=== PATIENT | female | born 1940 | race Caucasian/White ===

== ENCOUNTER 2018-05-25 07:39 | Emergency (ER) | payer MEDICARE ==
--- NOTE | 2018-05-25 08:19 | RADIOLOGY REPORT (SQ) ---
EXAM DESCRIPTION: HIP LEFT AP/LATERAL COMPLETED DATE/TIME: 05/25/2018 8:02 am REASON FOR STUDY: pain COMPARISON: None. NUMBER OF VIEWS: Two views. TECHNIQUE: AP pelvis and additional frog-leg view of the left hip. LIMITATIONS: None. FINDINGS: MINERALIZATION: Normal. LEFT HIP: No fracture or dislocation. No worrisome bone lesions. There is high-grade joint space na rrowing with [id number] appearance. Mild bony spurring. RIGHT HIP: No fracture or dislocation. No worrisome bone lesions. There is high-grade joint space n arrowing with [id number] appearance. Mild bony spurring. PUBIS AND ISCHIUM: No fracture. PELVIS: No fracture. SACRUM: No fracture or dislocation. No worrisome bone lesions. LOWER LUMBAR SPINE: Disc space narrowing and facet arthropathy from L3-4 through L5-S1 SOFT TISSUES: No findings. OTHER: No other significant finding. IMPRESSION: No acute fracture or malalignment by plain film. COMMENT: Consider follow-up CT if the patient is unable to bear weight TECHNICAL DOCUMENTATION: JOB ID: [id number]- All Rights Reserved Reading location - IP/workstation name: [email or web address]
[2018-05-25] MEDS ORDERED: KETOROLAC TROMETHAMINE 60 MG/2 ML SDV IM ONE (09:00)
[2018-05-25] MEDS ORDERED: TRAMADOL HCL 50 MG TABLET PO ONE (09:00)
--- NOTE | 2018-05-25 09:03 | ER Document Report ---
ED General - General Chief Complaint: Hip Pain Stated Complaint: HIP PAIN Time Seen by Provider: 05/25/18 08:15 Primary Care Provider: INOCENTE BONILLA PA-C [Primary Care Provider] - Follow up as needed - HPI Patient complains to provider of: Left hip pain Notes: Patient coming in for complaint of left hip pain. Patient states she has a history of chronic pain and sees a local orthopedist Dr. Oropeza states that she is waiting to have a hip replacement. States woke up this morning with increased pain. Patient states he does not take anything for her pain denies any pain going down the back of her leg. Patient points to the top of the posterior hip just above the iliac crest in the left paraspinal region as far as the site of her pain. Patient denies any trauma. Patient denies fever chills nausea vomiting diarrhea - Related Data Allergies/Adverse Reactions: No Known Allergies Allergy (Verified 05/25/18 07:52) Past Medical History - Social History Smoking Status: Former Smoker Chew tobacco use (# tins/day): No Frequency of alcohol use: Occasional Drug Abuse: None Family History: Reviewed & Not Pertinent Patient has suicidal ideation: No Patient has homicidal ideation: No - Past Medical History Cardiac Medical History: Reports: Hx Hypercholesterolemia, Hx Hypertension Pulmonary Medical History: Reports: Hx Asthma Renal/ Medical History: Denies: Hx Peritoneal Dialysis Past Surgical History: Reports: Hx Abdominal Surgery - lap band, Hx Orthopedic Surgery - aditi knee replacement, right shoulder, repair of femur Review of Systems - Review of Systems Constitutional: No symptoms reported EENT: No symptoms reported Cardiovascular: No symptoms reported Respiratory: No symptoms reported Gastrointestinal: No symptoms reported Genitourinary: No symptoms reported Female Genitourinary: No symptoms reported Musculoskeletal: Other - Left hip pain Skin: No symptoms reported Hematologic/Lymphatic: No symptoms reported Neurological/Psychological: No symptoms reported Physical Exam - Vital signs Vitals: Temp Pulse Resp BP 97.8 F 86 20 146/89 H 05/25/18 07:45 05/25/18 07:45 05/25/18 07:45 05/25/18 07:45 Interpretation: Normal - General General appearance: Appears well, Alert - HEENT Head: Normocephalic, Atraumatic Eyes: Normal Pupils: PERRL - Respiratory Respiratory status: No respiratory distress Chest status: Nontender Breath sounds: Normal Chest palpation: Normal - Cardiovascular Rhythm: Regular Heart sounds: Normal auscultation Murmur: No - Abdominal Inspection: Normal Distension: No distension Bowel sounds: Normal Tenderness: Nontender Organomegaly: No organomegaly - Back Back: Normal, Tender - Paraspinal tenderness adjacent to the iliac crest on left side nothing on the right no midline tenderness - Extremities General upper extremity: Normal inspection, Nontender, Normal color, Normal ROM, Normal temperature General lower extremity: Normal inspection, Nontender, Normal color, Normal ROM, Normal temperature, Normal weight bearing. No: Sanchez's sign - Neurological Neuro grossly intact: Yes Cognition: Normal Orientation: AAOx4 [place] Coma Scale Eye Opening: Spontaneous Daryl Coma Scale Verbal: Oriented [place] Coma Scale Motor: Obeys Commands Daryl Coma Scale Total: 15 Speech: Normal Motor strength normal: LUE, RUE, LLE, RLE Sensory: Normal - Psychological Associated symptoms: Normal affect, Normal mood - Skin Skin Temperature: Warm Skin Moisture: Dry Skin Color: Normal Course - Re-evaluation Re-evalutation: 05/25/18 13:46 The patient presents with low back pain/hip pain without signs of spinal cord compression, cauda equina syndrome, infection, aneurysm, or other serious etiology. The patient is neurologically intact. Given the extremely low risk of these diagnoses further testing and evaluation for these possibilities does not appear to be indicated at this time. The patient has been instructed to return if the symptoms worsen or change in any way. - Vital Signs Vital signs: Temp Pulse Resp BP Pulse Ox 97.9 F 100 16 131/72 H 100 05/25/18 09:45 05/25/18 09:45 05/25/18 09:45 05/25/18 09:45 05/25/18 09:45 Discharge - Discharge Clinical Impression: Left hip pain Condition: Good Disposition: HOME, SELF-CARE Instructions: Arthralgia ([facility]), Oral Narcotic Medication ([facility]) Additional Instructions: Your x-rays today do not show any signs of fracture highly recommend she follow- up with the orthopedic physician. I recommend also taking Tylenol use the Ultram for severe pain. Return to the ER if symptoms worsen. Prescriptions: Tramadol HCl [Ultram 50 mg Tablet] 50 mg PO ASDIR PRN #20 tablet PRN Reason: Referrals: INOCENTE BONILLA PA-C [Primary Care Provider] - Follow up as needed
[2018-05-25 09:50] VITALS: BP 131/72
== END 2018-05-25 09:54 | disposition home or self-care (01) ==
LOC: ER 07:39
DX: M25.552 Pain in left hip (principal); M54.5 Low back pain; I10 Essential (primary) hypertension; J45.909 Unspecified asthma, uncomplicated; Z87.891 Personal history of nicotine dependence; Z98.84 Bariatric surgery status
CPT/HCPCS: 99283; 96372; 73502; J1885; A9270

== ENCOUNTER 2018-06-21 04:42 | Inpatient (IN) | payer MEDICARE ==
[2018-06-21] MEDS ORDERED: DILTIAZEM HCL/D5W 125 MG/125 ML RTUINJ IV PRN (04:52)
[2018-06-21] MEDS ORDERED: DILTIAZEM HCL INJ 25 MG/5 ML VIAL IV ONE (04:52)
--- NOTE | 2018-06-21 04:58 | ER Document Report ---
ED General - General Chief Complaint: Shortness Of Breath Stated Complaint: TROUBLE BREATHING Time Seen by Provider: 06/21/18 04:51 Notes: Patient is a 78-year-old female with atrial fibrillation on Eliquis, diabetes mellitus, asthma that presents to the emergency department for chief complaint of shortness of breath. Patient states she started feeling more short of breath early this morning, had some mild chest discomfort. She does have history of asthma, she was just discharged from [facility] after a prolonged hospital stay, she was discharged yesterday. She states that she had a cardiac arrest, was in septic shock, secondary to urinary tract infection with a kidney stone. She states she had a lithotripsy over there. She initially did present to this emergency department prior to being transferred. She states she is having a hard time catching her breath, and feels that her heart is racing. She denies any pain at this time, denies any lightheadedness, nausea, vomiting, abdominal pain, dysuria or hematuria. Many of the patient's diagnoses occurred while she was in the hospital, she had not seen a physician for a long time prior to her presentation a few weeks ago, she states she was put on a blood thinner, and was started on insulin for diabetes which she states she was not aware of prior to her hospitalization. Per EMS the patient's pulse ox was 70% on room air upon arrival, she did receive a breathing treatment which seemed to make her shortness of breath worse so it was discontinued. Per EMS she did report some chest discomfort, but denies any pain at this time. Past Medical History: Atrial fibrillation, asthma, diabetes mellitus Past Surgical History: Total knee arthroplasties, total shoulder replacement, lithotripsy, ureteral stenting Social History: Denies tobacco, alcohol or drug use. Family History: Reviewed and noncontributory for presenting illness Allergies: Reviewed, see documented allergy list. REVIEW OF SYSTEMS: Other than noted above, the 12 point review of systems was reviewed with the patient and were negative, all pertinent findings are included in the HPI. PHYSICAL EXAMINATION: Vital signs reviewed, nursing noted reviewed. GENERAL: Elderly female, in moderate respiratory distress. HEAD: Atraumatic, normocephalic. EYES: Eyes appear normal, extraocular movements intact, sclera anicteric, conjunctiva are normal. ENT: nares patent, oropharynx clear without exudates. Moist mucous membranes. NECK: Normal range of motion, supple without lymphadenopathy LUNGS: Diminished lung sounds throughout, increased work of breathing, moderate to severe respiratory distress HEART: Heart rate tachycardic, irregular rhythm, no audible murmur. ABDOMEN: Soft, nontender, normoactive bowel sounds. No rebound, guarding, or rigidity. No masses appreciated. EXTREMITIES: Nontender, good range of motion, no pitting or edema. NEUROLOGICAL: No focal neurological deficits. Moves all extremities spontaneously Motor and sensory grossly intact on exam. PSYCH: Normal mood, normal affect. SKIN: Warm, Dry, normal turgor, no rashes or lesions noted on exposed skin - Related Data Allergies/Adverse Reactions: No Known Allergies Allergy (Verified 05/25/18 07:52) Past Medical History - Social History Smoking Status: Never Smoker Family History: Reviewed & Not Pertinent - Past Medical History Cardiac Medical History: Reports: Hx Hypercholesterolemia, Hx Hypertension Pulmonary Medical History: Reports: Hx Asthma Renal/ Medical History: Denies: Hx Peritoneal Dialysis Past Surgical History: Reports: Hx Abdominal Surgery - lap band, Hx Orthopedic Surgery - aditi knee replacement, right shoulder, repair of femur Physical Exam - Vital signs Vitals: Resp Pulse Ox 26 H 97 06/21/18 04:47 06/21/18 04:47 Course - Re-evaluation Re-evalutation: Patient seen and examined vital signs reviewed. Laboratory data and imaging were ordered as appropriate for the patient's pre senting symptoms and complaint, with consideration of any critical or life threatening conditions that may be associated with their obtained history and exam as noted above. Patient was treated with BiPAP therapy, placed on Cardizem bolus of 50 mg, and infusion at 5 mg/h, her heart rate did come down to the low 100s, blood pressure remained stable, patient was improved on BiPAP. Avoiding further bronchodilators, such as DuoNeb, as it will only make the patient's heart rate worse, and she seemed to get worse from a respiratory standpoint, when she was given 1 of these treatments by EMS. Results were reviewed when available and demonstrated chest x-ray, that was negative for signs of pneumonia, significant pulmonary edema, she did have cardiomegaly. BNP was elevated, however do not have a baseline to compare, she did not appear excessively fluid overloaded on my exam her troponin was 0.019. Renal function demonstrate a creatinine of 1.9, from what the patient is telling me, this seems to be improved from her visit in [facility], when she had temporary dialysis. Patient is urinating, without difficulty. The patient was re-evaluated and was much improved on the BiPAP, heart rate coming down on the Cardizem. Evaluation was most consistent with acute respiratory failure with hypoxia, requiring noninvasive positive pressure ventilation, and atrial fibrillation with rapid ventricular response, requiring Cardizem infusion. *Note is created using voice recognition software and may contain spelling, syntax or grammatical errors. Laboratory 06/21/18 06/21/18 06/21/18 04:48 04:48 04:48 WBC 9.9 RBC 3.14 L Hgb 10.1 L Hct 30.6 L MCV 98 H MCH 32.2 MCHC 33.1 RDW 17.4 H Plt Count 300 Total Counted 100 Seg Neutrophils % Not Reportable Seg Neuts % (Manual) 76 Band Neutrophils % 2 L Lymphocytes % Not Reportable Lymphocytes % (Manual) 6 L Monocytes % Not Reportable Monocytes % (Manual) 16 H Eosinophils % Not Reportable Eosinophils % (Manual) 0 Basophils % Not Reportable Basophils % (Manual) 0 Absolute Neutrophils Not Reportable Abs Neuts (Manual) 7.7 Absolute Lymphocytes Not Reportable Abs Lymphs (Manual) 0.6 Absolute Monocytes Not Reportable Abs Monocytes (Manual) 1.6 H Absolute Eosinophils Not Reportable Absolute Eos (Manual) 0.0 Absolute Basophils Not Reportable Abs Basophils (Manual) 0.0 Toxic Granulation 1+ Platelet Comment ADEQUATE Polychromasia SLIGHT Anisocytosis 2+ PT 17.5 H INR 1.37 VBG pH VBG pCO2 VBG HCO3 VBG Base Excess Sodium 142.3 Potassium 5.0 Chloride 110 H Carbon Dioxide 23 Anion Gap 9 BUN 37 H Creatinine 1.96 H Est GFR ( Amer) 30 L Est GFR (Non-Af Amer) 25 L Glucose 198 H POC Glucose Calcium 9.4 Total Bilirubin 0.4 Direct Bilirubin 0.4 Neonat Total Bilirubin Not Reportable Neonat Direct Bilirubin Not Reportable Neonat Indirect Bili Not Reportable AST 39 H ALT 39 Alkaline Phosphatase 69 Troponin I NT-Pro-B Natriuret Pep Total Protein 6.6 Albumin 3.7 06/21/18 06/21/18 06/21/18 04:48 04:48 04:48 WBC RBC Hgb Hct MCV MCH MCHC RDW Plt Count Total Counted Seg Neutrophils % Seg Neuts % (Manual) Band Neutrophils % Lymphocytes % Lymphocytes % (Manual) Monocytes % Monocytes % (Manual) Eosinophils % Eosinophils % (Manual) Basophils % Basophils % (Manual) Absolute Neutrophils Abs Neuts (Manual) Absolute Lymphocytes Abs Lymphs (Manual) Absolute Monocytes Abs Monocytes (Manual) Absolute Eosinophils Absolute Eos (Manual) Absolute Basophils Abs Basophils (Manual) Toxic Granulation Platelet Comment Polychromasia Anisocytosis PT INR VBG pH 7.27 L VBG pCO2 53.7 VBG HCO3 24.3 VBG Base Excess -3.1 Sodium Potassium Chloride Carbon Dioxide Anion Gap BUN Creatinine Est GFR ( Amer) Est GFR (Non-Af Amer) Glucose POC Glucose Calcium Total Bilirubin Direct Bilirubin Neonat Total Bilirubin Neonat Direct Bilirubin Neonat Indirect Bili AST ALT Alkaline Phosphatase Troponin I 0.019 NT-Pro-B Natriuret Pep 28414 H Total Protein Albumin 06/21/18 05:10 WBC RBC Hgb Hct MCV MCH MCHC RDW Plt Count Total Counted Seg Neutrophils % Seg Neuts % (Manual) Band Neutrophils % Lymphocytes % Lymphocytes % (Manual) Monocytes % Monocytes % (Manual) Eosinophils % Eosinophils % (Manual) Basophils % Basophils % (Manual) Absolute Neutrophils Abs Neuts (Manual) Absolute Lymphocytes Abs Lymphs (Manual) Absolute Monocytes Abs Monocytes (Manual) Absolute Eosinophils Absolute Eos (Manual) Absolute Basophils Abs Basophils (Manual) Toxic Granulation Platelet Comment Polychromasia Anisocytosis PT INR VBG pH VBG pCO2 VBG HCO3 VBG Base Excess Sodium Potassium Chloride Carbon Dioxide Anion Gap BUN Creatinine Est GFR ( Amer) Est GFR (Non-Af Amer) Glucose POC Glucose 184 H Calcium Total Bilirubin Direct Bilirubin Neonat Total Bilirubin Neonat Direct Bilirubin Neonat Indirect Bili AST ALT Alkaline Phosphatase Troponin I NT-Pro-B Natriuret Pep Total Protein Albumin Chest X-Ray 06/21/18 04:51 IMPRESSION: No pneumonia. - Vital Signs Vital signs: Temp Pulse Resp BP Pulse Ox 97.9 F 102 H 16 110/51 L 96 06/24/18 03:36 06/24/18 07:00 06/24/18 05:21 06/24/18 03:36 06/24/18 05:21 - Laboratory Result Diagrams: 06/24/18 05:30 06/24/18 05:30 Laboratory results interpreted by me: 04/06/21/18 06/21/18 04:48 04:48 04:48 RBC 3.14 L Hgb 10.1 L Hct 30.6 L MCV 98 H RDW 17.4 H Band Neutrophils % 2 L Lymphocytes % (Manual) 6 L Monocytes % (Manual) 16 H Abs Monocytes (Manual) 1.6 H PT 17.5 H VBG pH Chloride 110 H BUN 37 H Creatinine 1.96 H Est GFR ( Amer) 30 L Est GFR (Non-Af Amer) 25 L Glucose 198 H POC Glucose AST 39 H NT-Pro-B Natriuret Pep 06/21/18 06/21/18 06/21/18 04:48 04:48 05:10 RBC Hgb Hct MCV RDW Band Neutrophils % Lymphocytes % (Manual) Monocytes % (Manual) Abs Monocytes (Manual) PT VBG pH 7.27 L Chloride BUN Creatinine Est GFR ( Amer) Est GFR (Non-Af Amer) Glucose POC Glucose 184 H AST NT-Pro-B Natriuret Pep 29386 H - EKG Interpretation by Me Additional EKG results interpreted by me: EKG demonstrates atrial fibrillation with rapid ventricular response with a ve ntricular rate of 161 bpm, slight left axis deviation, QTC 439 ms, T wave inversions noted in leads aVL, V5, V6, frequent PVCs noted as well. Critical Care Note - Critical Care Note Total time excluding time spent on procedures (mins): 35 Comments: Critical care time 35 minutes exclusive from separate billable procedures for a patient requiring complex medical decision making, and high potential for cl inical deterioration. In a patient with atrial fibrillation with rapid ventricular response, requiring IV Cardizem infusion, BiPAP for acute on chronic respiratory failure, close monitoring and repeat evaluations. Time spent obtaining history from patient or surrogate, discussions with consultants, development of treatment plan with patient or surrogate, evaluation of patient's response to treatment, examination of patient, ordering and performing treatments and interventions, ordering and review of laboratory studies, re- evaluation of patient's condition, ordering and review of radiographic studies and review of old charts Discharge - Discharge Clinical Impression: Acute respiratory failure with hypoxia, Atrial fibrillation with RVR Condition: Stable Disposition: ADMITTED INPATIENT Admitting Provider: Veda (Hospitalist) Unit Admitted: [facility], [place]
[2018-06-21 05:14] LABS: HEMATOCRIT 30.6 % (36.0-47.0); HEMOGLOBIN 10.1 g/dL (12.0-15.5); MEAN CORPUSCULAR HEMOGLOBIN 32.2 pg (27.0-33.4); MEAN CORPUSCULAR HGB CONC 33.1 g/dL (32.0-36.0); MEAN CORPUSCULAR VOLUME 98 fl (80-97); PLATELET COUNT 300 10^3/uL (150-450); RED BLOOD COUNT 3.14 10^6/uL (3.72-5.28); RED CELL DISTRIBUTION WIDTH 17.4 % (11.5-14.0); WHITE BLOOD COUNT 9.9 10^3/uL (4.0-10.5)
[2018-06-21 05:22] LABS: INTERNATIONAL RATION (INR) 1.37; PROTHROMBIN TIME 17.5 SEC (11.4-15.4)
[2018-06-21 05:29] LABS: ABSOLUTE LYMPHOCYTES# (MANUAL) 0.6 10^3/uL (0.5-4.7); ABSOLUTE MONOCYTES # (MANUAL) 1.6 10^3/uL (0.1-1.4); ABSOLUTE NEUTROPHILS# (MANUAL) 7.7 10^3/uL (1.7-8.2); BAND NEUTROPHILS % (MANUAL) 2 % (3-5); BASOPHILS % (MANUAL) 0 % (0-2); EOSINOPHILS % (MANUAL) 0 % (0-6); LYMPHOCYTES % (MANUAL) 6 % (13-45); MONOCYTES % (MANUAL) 16 % (3-13); SEGMENTED NEUTROPHILS % (MAN) 76 % (42-78); TOTAL CELLS COUNTED 100
[2018-06-21 05:30] LABS: ANISOCYTOSIS 2+; PLATELET COMMENT ADEQUATE; POLYCHROMASIA SLIGHT; TOXIC GRANULATION 1+
[2018-06-21 05:31] LABS: VENOUS BLOOD BASE EXCESS -3.1 mmol/L; VENOUS BLOOD HCO3 24.3 mmol/L (20-32); VENOUS BLOOD PCO2 53.7 mmHg (35-63); VENOUS BLOOD PH 7.27 (7.30-7.42)
--- NOTE | 2018-06-21 05:41 | RADIOLOGY REPORT (SQ) ---
CLINICAL HISTORY: shortness of breath COMPARISON: None. TECHNIQUE: XR CHEST 1 VIEW 06/21/2018 4:51 AM CDT FINDINGS: The heart is borderline in size. Right shoulder arthroplasty was performed. Lungs are clear without consolidation, atelectasis, mass or edema. There may be a small left pleural effusion. There is no pneumothorax. There are no acute osseous findings. IMPRESSION: No pneumonia.
[2018-06-21 05:47] LABS: ALANINE AMINOTRANSFERASE 39 U/L (9-52); ALBUMIN 3.7 g/dL (3.5-5.0); ALKALINE PHOSPHATASE 69 U/L (38-126); ANION GAP 9 (5-19); ASPARTATE AMINO TRANSFERASE 39 U/L (14-36); BILIRUBIN,DIRECT 0.4 mg/dL (0.0-0.4); BILIRUBIN,TOTAL 0.4 mg/dL (0.2-1.3); BLOOD UREA NITROGEN 37 mg/dL (7-20); CALCIUM 9.4 mg/dL (8.4-10.2); CARBON DIOXIDE 23 mmol/L (22-30); CHLORIDE 110 mmol/L (98-107); GLUCOSE 198 mg/dL (75-110); SODIUM 142.3 mmol/L (137-145); TOTAL PROTEIN 6.6 g/dL (6.3-8.2)
[2018-06-21] MEDS ORDERED: METHYLPREDNISOLONE INJ 125 MG/2 ML SDV IV ONE (05:50)
--- NOTE | 2018-06-21 07:47 | EKG REPORT ---
SEVERITY:- ABNORMAL ECG - ATRIAL FIBRILLATION WITH RAPID V-RATE PAIRED VENTRICULAR PREMATURE COMPLEXES ABNRM R PROG, CONSIDER ASMI OR LEAD PLACEMENT REPOLARIZATION ABNORMALITY, PROB RATE RELATED : Confirmed by: Antonio Nagy MD 21-Jun-2018 07:46:50
[2018-06-21] MEDS ORDERED: METOPROLOL SUCCINATE 25 MG TAB.SR.24H PO ONE (10:00)
[2018-06-21] MEDS: FUROSEMIDE INJ/PF 20 MG/2 ML SDV IV SCH (10:03)
[2018-06-21 11:16] LABS: APPEARANCE,URINE CLOUDY; BILIRUBIN,URINE NEGATIVE (NEGATIVE); COLOR,URINE RED; GLUCOSE, URINE 50 mg/dL (NEGATIVE); KETONES,URINE NEGATIVE (NEGATIVE); LEUKOCYTE ESTERASE,URINE SMALL (NEGATIVE); NITRITE,URINE NEGATIVE (NEGATIVE); PROTEIN,URINE 100 mg/dL (NEGATIVE); URINE SPECIFIC GRAVITY 1.015; UROBILINOGEN,URINE NEGATIVE mg/dL (<2.0)
--- NOTE | 2018-06-21 12:12 | PDOC H&P ---
History of Present Illness Admission Date/PCP: 06/21/18 09:45 INOCENTE BONILLA PA-C History of Present Illness: SOTO YOUNG is a 78 year old female who was transferred to [facility] from this hospital approximately 4 weeks ago for septic shock due to a pyelonephritis due to an infected obstructing ureteral stone. Not all of the details of the hospitalization are clear at this time as we do not yet have the records, but apparently she was just discharged from the hospital to [place] less than 48 hours ago. The granddaughter, who is the medical power of emergency department, did not think the patient was ready to be discharged yet, because she was still having some trouble with shortness of breath and was in atrial fibrillation which she did not think was being controlled very well. It is reiterated again that I do not know all the details from the medical record at [facility], all I know is what the patient's granddaughter is telling me. Apparently while she was there, she had been in atrial fibrillation for several weeks, since very close to the time when she had been admitted to the hospital there. They also found out there approximately 1 week ago that the patient has heart failure with an EF of 40%. The granddaughter says she remembered this because she had another family member who she took care of who had heart failure and she knew that the ejection fraction was an important number. It is not clear if at this time the patient is still on antibiotics, but she apparently still has a stent in her ureter. Apparently she had no prior history of any heart problems before she got admitted to the hospital a few weeks ago. She presented to the ER today after having shortness of breath at [place]. Apparently she was also hypoxemic over there, and when EMS got there they put her on 4 L nasal cannula her oxygen saturation were in the upper 90s. She had to be put on BiPAP in the ER here. She is gotten several nebulizer treatments with no relief. She denies any chest pain. She has not had any obvious ischemic EKG changes, but her EKG does show what looks like an atrial fibrillation with a rapid rate. She was put on a Cardizem drip in the ER and at 5 mg an hour, her rate was controlled in the 90s whenever I saw her. The granddaughter said that regarding the heart failure, patient had an echocardiogram but did not have any further ischemic workup such as a stress test or a cardiac catheterization, and she has never had either of these tests in the past. Past Medical History Cardiac Medical History: Reports: Hyperlipidema, Hypertension Pulmonary Medical History: Reports: Asthma Past Surgical History Past Surgical History: Reports: Orthopedic Surgery - aditi knee replacement, right shoulder, repair of femur Social History Smoking Status: Unknown if Ever Smoked Family History Family History: Hyperlipidemia, Hypertension Parental Family History Reviewed: Yes - Hypertension, hyperlipidemia Children Family History Reviewed: Yes - Hypertension Sibling(s) Family History Reviewed.: Yes - None known Medication/Allergy Home Medications: Albuterol Sulfate [Proair HFA Inhalation Aerosol 8.5 gm MDI] 2 puff IH Q6HP PRN 06/21/18 Atenolol [Tenormin] 25 mg PO DAILY 06/21/18 Budesonide/Formoterol Fumarate [Symbicort HFA 160-4.5 mcg Inhaler 6 gm] 2 puff IH Q12 06/21/18 Ibuprofen [Motrin 800 mg Tablet] 800 mg PO BID 06/21/18 Pravastatin Sodium [Pravachol] 40 mg PO DAILY 06/21/18 Allergies/Adverse Reactions: No Known Allergies Allergy (Verified 05/25/18 07:52) Review of Systems ROS unobtainable: Due to mental status - She has a history of dementia and so her granddaughter answer all of her questions Physical Exam Vital Signs: Temp Pulse Resp BP Pulse Ox 97.6 F 106 H 26 H 113/69 100 06/21/18 10:00 06/21/18 08:53 06/21/18 11:01 06/21/18 11:01 06/21/18 11:01 Intake & Output 06/20/18 06/21/18 06/22/18 06:59 06:59 06:59 Weight 82.1 kg General appearance: PRESENT: cooperative, disheveled, mild distress, obese Head exam: PRESENT: atraumatic, normocephalic Eye exam: PRESENT: EOMI, PERRLA. ABSENT: conjunctival injection, nystagmus, scleral icterus Ear exam: PRESENT: normal external ear exam Mouth exam: PRESENT: moist, neck supple Teeth exam: PRESENT: poor dentation Throat exam: ABSENT: post pharyngeal erythema Neck exam: PRESENT: full ROM. ABSENT: carotid bruit, JVD - Difficult to tell due to body habitus, lymphadenopathy, meningismus, tenderness, thyromegaly Respiratory exam: PRESENT: crackles, decreased breath sounds - Bibasilar, symmetrical. ABSENT: accessory muscle use, chest wall tenderness, prolonged expiratory phas, rhonchi, stridor, tachypnea, unlabored, wheezes Cardiovascular exam: PRESENT: irregular rhythm Pulses: PRESENT: normal carotid pulses Vascular exam: PRESENT: normal capillary refill GI/Abdominal exam: PRESENT: normal bowel sounds, soft. ABSENT: distended, guarding, rebound, tenderness Extremities exam: PRESENT: pedal edema, +1 edema. ABSENT: clubbing Musculoskeletal exam: PRESENT: normal inspection. ABSENT: deformity Neurological exam: PRESENT: alert, awake, oriented to person, oriented to place, CN II-XII grossly intact. ABSENT: oriented to time, oriented to situation, motor sensory deficit Psychiatric exam: PRESENT: anxious Skin exam: PRESENT: dry, warm Results Laboratory Results: 06/21/18 04:48 06/21/18 04:48 06/21/18 06/21/18 06/21/18 04:48 04:48 04:48 WBC 9.9 RBC 3.14 L Hgb 10.1 L Hct 30.6 L MCV 98 H MCH 32.2 MCHC 33.1 RDW 17.4 H Plt Count 300 Seg Neutrophils % Not Reportable Lymphocytes % Not Reportable Monocytes % Not Reportable Eosinophils % Not Reportable Basophils % Not Reportable Absolute Neutrophils Not Reportable Absolute Lymphocytes Not Reportable Absolute Monocytes Not Reportable Absolute Eosinophils Not Reportable Absolute Basophils Not Reportable VBG pH 7.27 L VBG pCO2 53.7 VBG HCO3 24.3 VBG Base Excess -3.1 Sodium 142.3 Potassium 5.0 Chloride 110 H Carbon Dioxide 23 Anion Gap 9 BUN 37 H Creatinine 1.96 H Est GFR ( Amer) 30 L Est GFR (Non-Af Amer) 25 L Glucose 198 H Lactic Acid Calcium 9.4 Total Bilirubin 0.4 AST 39 H ALT 39 Alkaline Phosphatase 69 Total Protein 6.6 Albumin 3.7 Urine Color Urine Appearance Urine pH Ur Specific [place] Urine Protein Urine Glucose (UA) Urine Ketones Urine Blood Urine Nitrite Ur Leukocyte Esterase Urine WBC (Auto) Urine RBC (Auto) 06/21/18 06/21/18 05:32 10:58 WBC RBC Hgb Hct MCV MCH MCHC RDW Plt Count Seg Neutrophils % Lymphocytes % Monocytes % Eosinophils % Basophils % Absolute Neutrophils Absolute Lymphocytes Absolute Monocytes Absolute Eosinophils Absolute Basophils VBG pH VBG pCO2 VBG HCO3 VBG Base Excess Sodium Potassium Chloride Carbon Dioxide Anion Gap BUN Creatinine Est GFR ( Amer) Est GFR (Non-Af Amer) Glucose Lactic Acid 1.9 Calcium Total Bilirubin AST ALT Alkaline Phosphatase Total Protein Albumin Urine Color RED Urine Appearance CLOUDY Urine pH 5.0 Ur Specific [place] 1.015 Urine Protein 100 H Urine Glucose (UA) 50 H Urine Ketones NEGATIVE Urine Blood LARGE H Urine Nitrite NEGATIVE Ur Leukocyte Esterase SMALL H Urine WBC (Auto) 9 Urine RBC (Auto) >182 06/21/18 06/21/18 04:48 04:48 Troponin I 0.019 NT-Pro-B Natriuret Pep 44359 H Impressions: Chest X-Ray 06/21/18 04:51 IMPRESSION: No pneumonia. Assessment and Plan - Diagnosis (1) Acute respiratory failure with hypoxia Is this a current diagnosis for this admission?: Yes Plan: Suspect she had some pulmonary edema and was probably little bit of the fluid overload before she left the hospital. Currently on BiPAP, will give her some Lasix and wean BiPAP down to a nasal cannula as tolerated. (2) Acute exacerbation of congestive heart failure Qualifiers: Heart failure type: systolic Qualified Code(s): I50.23 - Acute on chronic systolic (congestive) heart failure Is this a current diagnosis for this admission?: Yes Plan: Cardiology is been consulted. Will try to get good rate control. We will give her some Lasix. We will try to get her records from [facility], as well as her medication list from [place]. (3) Atrial fibrillation with RVR Is this a current diagnosis for this admission?: Yes Plan: Controlled on low-dose Cardizem drip, will convert her over to a beta-yoseph. We will start anticoagulation. Cardiology is been consulted. We will try to determine whether or not she needs a rate control strategy or rhythm control strategy given her history of heart failure, and will need to determine if she needs an ischemic workup. (4) Chronic kidney disease (CKD) stage G3b/A3, moderately decreased glomerular filtration rate (GFR) between 30-44 mL/min/1.73 square meter and albuminuria creatinine ratio greater than 300 mg/g Is this a current diagnosis for this admission?: Yes Plan: Suspect that this is probably her baseline creatinine, much improved from when she was initially sent to [facility] 1 month ago. - Time Time Spent with patient: 35 or more minutes - Inpatient Certification Based on my medical assessment, after consideration of the patient's comorbidities, presenting symptoms, or acuity I expect that the services needed warrant INPATIENT care.: Yes I certify that my determination is in accordance with my understanding of Medicare's requirements for reasonable and necessary INPATIENT services [42 CFR 412.3e].: Yes Medical Necessity: Need Close Monitoring Due to Risk of Patient Decompensation, Need For Continuous Telemetry Monitoring, Risk of Complication if Not Cared For in Hospital
[2018-06-21] MEDS ORDERED: HEPARIN SOD (PORCINE) 5,000 UNIT/ML 1 ML SYRINGE SUBCUT SCH (14:00)
[2018-06-21] MEDS ORDERED: METOPROLOL SUCCINATE 25 MG TAB.SR.24H PO SCH (22:00)
[2018-06-21] MEDS ORDERED: ENOXAPARIN SODIUM INJ 80 MG/0.8 ML DISP.SYRIN SUBCUT SCH (22:00)
[2018-06-21] MEDS ORDERED: ACETAMINOPHEN 325 MG TABLET PO PRN (23:12)
[2018-06-21] MEDS ORDERED: FERROUS SULFATE 325 MG TABLET PO ONE (23:59)
[2018-06-21] MEDS ORDERED: ATORVASTATIN CALCIUM 10 MG TABLET PO ONE (23:59)
[2018-06-21] MEDS ORDERED: DILTIAZEM HCL 90 MG TABLET PO ONE (23:59)
[2018-06-21] MEDS ORDERED: METOPROLOL TARTRATE 25 MG TABLET PO ONE (23:59)
[2018-06-21] MEDS ORDERED: APIXABAN 5 MG TABLET PO ONE (23:59)
[2018-06-21] MEDS ORDERED: FUROSEMIDE INJ/PF 20 MG/2 ML SDV IV ONE (23:59)
[2018-06-22] MEDS ORDERED: DILTIAZEM HCL 90 MG TABLET ONE (00:31)
[2018-06-22] MEDS: FUROSEMIDE INJ/PF 20 MG/2 ML SDV IV SCH ×3 (00:39→21:22)
[2018-06-22] MEDS ORDERED: DEXTROSE 50%-WATER 25 GM/50 ML DISP.SYRIN IV PRN ×2 (00:49)
[2018-06-22] MEDS ORDERED: GLUCAGON,HUMAN RECOMB 1 MG INJ IM PRN (00:49)
[2018-06-22] MEDS ORDERED: DEXTROSE 40% GEL 15 GM TUBE PO PRN ×2 (00:49)
[2018-06-22] MEDS ORDERED: IPRATROPIUM/ALBUTEROL 0.5-2.5 MG/3 ML AMPUL NEB ONE (02:08)
[2018-06-22] MEDS ORDERED: IPRATROPIUM/ALBUTEROL 0.5-2.5 MG/3 ML AMPUL NEB PRN (02:13)
[2018-06-22] MEDS: INSULIN LISPRO 100 UNIT/ML 3 ML VIAL SUBCUT SCH ×4 (02:54→18:31)
[2018-06-22 04:38] LABS: HEMATOCRIT 27.4 % (36.0-47.0); HEMOGLOBIN 9.2 g/dL (12.0-15.5); MEAN CORPUSCULAR HEMOGLOBIN 32.6 pg (27.0-33.4); MEAN CORPUSCULAR HGB CONC 33.5 g/dL (32.0-36.0); MEAN CORPUSCULAR VOLUME 97 fl (80-97); PLATELET COUNT 173 10^3/uL (150-450); RED BLOOD COUNT 2.81 10^6/uL (3.72-5.28); RED CELL DISTRIBUTION WIDTH 16.8 % (11.5-14.0); WHITE BLOOD COUNT 7.4 10^3/uL (4.0-10.5)
[2018-06-22 05:04] LABS: ANION GAP 14 (5-19); BLOOD UREA NITROGEN 49 mg/dL (7-20); CALCIUM 9.2 mg/dL (8.4-10.2); CARBON DIOXIDE 20 mmol/L (22-30); CHLORIDE 106 mmol/L (98-107); GLUCOSE 268 mg/dL (75-110); POTASSIUM 5.1 mmol/L (3.6-5.0); SODIUM 139.9 mmol/L (137-145)
[2018-06-22] MEDS ORDERED: APIXABAN 5 MG TABLET PO SCH (10:00)
[2018-06-22] MEDS ORDERED: DILTIAZEM HCL 180 MG CAPSULE.CR PO SCH (10:00)
[2018-06-22] MEDS: FLUTICASONE/VILANTEROL 100-25 MCG/DOSE IH SCH (10:09)
[2018-06-22] MEDS: TIOTROPIUM BROMIDE DPI 5 CAP/KIT (18 MCG/CAP) IH SCH (10:10)
[2018-06-22] MEDS: FERROUS SULFATE 325 MG TABLET PO SCH ×2 (10:12→18:44)
[2018-06-22] MEDS: METOPROLOL TARTRATE 25 MG TABLET PO SCH ×2 (10:12→18:45)
--- NOTE | 2018-06-22 16:00 | RADIOLOGY REPORT (SQ) ---
EXAM DESCRIPTION: CT ABD/PELVIS NO ORAL OR IV COMPLETED DATE/TIME: 06/22/2018 2:55 pm REASON FOR STUDY: gross hematuria; recent ureter stent COMPARISON: None. TECHNIQUE: CT scan of the abdomen and pelvis performed without intravenous or oral contrast. Images reviewed with lung, soft tissue, and bone windows. Reconstructed coronal and sagittal MPR images revi ewed. All images stored on PACS. All CT scanners at this facility use dose modulation, iterative reconstruction, and/or weight based d osing when appropriate to reduce radiation dose to as low as reasonably achievable (ALARA). [facility]: Dose Right [facility]: CareDose [facility]: Dose Right [facility]: Teradose 4D [facility]: Smart [employer] RADIATION DOSE: CT Rad equipment meets quality standard of care and radiation dose reduction techniq ues were employed. CTDIvol: 20.1 mGy. DLP: 1023 mGy-cm.mGy. LIMITATIONS: None. FINDINGS: LOWER CHEST: Trace bilateral pleural effusions with bibasilar atelectasis. Small hiatal h ernia. Moderate cardiomegaly. NON-CONTRASTED LIVER, SPLEEN, ADRENALS: Evaluation limited by lack of IV contrast. No identified sign ificant masses. PANCREAS: No masses. No peripancreatic inflammatory changes. GALLBLADDER: No identified stones by CT criteria. No inflammatory changes to suggest cholecystitis. RIGHT KIDNEY AND URETER: No suspicious masses. Assessment limited by lack of IV contrast. No signif icant calcifications. No hydronephrosis or hydroureter. LEFT KIDNEY AND URETER: No suspicious masses. Assessment limited by lack of IV contrast. No signifi cant calcifications. No hydronephrosis or hydroureter. Left double-J stent in good positioning. R eport called to Saadia Shanks AORTA AND RETROPERITONEUM: No aneurysm. No retroperitoneal masses or adenopathy. BOWEL AND PERITONEAL CAVITY: No obvious masses or inflammatory changes. No free fluid. Lap band for weight loss at the GE junction. APPENDIX: Normal. PELVIS, BLADDER, AND ABDOMINAL WALL:No abnormal masses. No free fluid. Bladder normal. Post hysterec herlinda There is third-spacing with edema in the dependent soft tissues over the abdomen and pelvis. BONES: Degenerative convex leftward lumbar curvature OTHER: No other significant finding. IMPRESSION: Left double-J ureteral stent in good positioning. No left-sided hydronephrosis. COMMENT: Quality ID # [id number]: Final reports with documentation of one or more dose reduction techniques (e.g., Automated exposure control, adjustment of the mA and/or kV according to patient size, use of iterative reconstruction technique) TECHNICAL DOCUMENTATION: JOB ID: [id number] [employer]- All Rights Reserved Reading location - IP/workstation name: [email or web address]
--- NOTE | 2018-06-22 18:15 | PDOC PROGRESS REPORT ---
Subjective Progress Note for:: 06/22/18 Subjective:: The patient was seen on morning rounds while still in the emergency department awaiting placement on the third floor. She was seen while her daughter and granddaughter were present. Patient identifies her granddaughter, Junior Husain, as her surrogate decision-maker. The patient reports that she is feeling much better today; decreased general sense of unwell, dyspnea, and edema as compared to yesterday. Both family members are very anxious with regard to her admission to our facility; they do not feel that the patient was appropriately discharged to SNF from the previous hospital. They do discussed that the patient is a DNR/DNI without interest in any dialysis in the future. They are concerned by her hematuria with recent left ureter stent placement, and chronic anticoagulation on Eliquis. Overall, family members express feeling overwhelmed and uninformed regarding the patient's complete medical condition. Patient does deny headache, dizziness, chest pain, dyspnea at rest, abdominal pain, nausea vomiting and diarrhea. She does have continued orthopnea and a nonproductive cough, though both are improved from yesterday. All questions and concerns were answered to the best of my ability; patient's family members were reassured that they would receive more timely information and complete updates on the patient's medical condition and progress. They are interested in discussing palliative care/hospice services. No concerns per nursing at this time. Reason For Visit: AFIB/RVR,ACUTE CHF EXACERBATION Physical Exam Vital Signs: Temp Pulse Resp BP Pulse Ox 98.6 F 109 H 16 95/66 L 98 06/22/18 16:29 06/22/18 16:29 06/22/18 16:29 06/22/18 16:29 06/22/18 16:29 Intake & Output 06/21/18 06/22/18 06/23/18 06:59 06:59 06:59 Weight 82.1 kg General appearance: PRESENT: no acute distress, cooperative, disheveled, hard of hearing, well-developed, well-nourished Head exam: PRESENT: atraumatic, normocephalic Eye exam: PRESENT: conjunctiva pink, EOMI, PERRLA. ABSENT: scleral icterus Mouth exam: PRESENT: moist, tongue midline Teeth exam: PRESENT: poor dentation Neck exam: ABSENT: carotid bruit, JVD, lymphadenopathy, thyromegaly Respiratory exam: PRESENT: crackles - Bibasilar, decreased breath sounds, prolonged expiratory phas, symmetrical, unlabored, other - Supplemental oxygen by nasal cannula. ABSENT: rales, rhonchi, wheezes Cardiovascular exam: PRESENT: irregular rhythm, +S1, +S2. ABSENT: diastolic murmur, rubs, systolic murmur Pulses: PRESENT: normal dorsalis pedis pul Vascular exam: PRESENT: normal capillary refill GI/Abdominal exam: PRESENT: normal bowel sounds, soft. ABSENT: distended, guarding, mass, organolmegaly, rebound, tenderness Rectal exam: PRESENT: deferred Extremities exam: PRESENT: full ROM, pedal edema - Trace bilaterally. ABSENT: calf tenderness, clubbing Neurological exam: PRESENT: alert, awake, oriented to person, oriented to place, oriented to time, CN II-XII grossly intact, other - Forgetful, repetitive. ABSENT: motor sensory deficit Psychiatric exam: PRESENT: anxious - Tearful. ABSENT: homicidal ideation, suicidal ideation Skin exam: PRESENT: dry, intact, warm. ABSENT: cyanosis, rash Results Laboratory Results: 06/22/18 04:10 06/22/18 04:10 06/22/18 06/22/18 04:10 04:10 WBC 7.4 RBC 2.81 L Hgb 9.2 L Hct 27.4 L MCV 97 MCH 32.6 MCHC 33.5 RDW 16.8 H Plt Count 173 Sodium 139.9 Potassium 5.1 H Chloride 106 Carbon Dioxide 20 L Anion Gap 14 BUN 49 H Creatinine 2.05 H Est GFR ( Amer) 28 L Est GFR (Non-Af Amer) 23 L Glucose 268 H Calcium 9.2 06/21/18 06/21/18 06/22/18 04:48 04:48 04:10 Troponin I 0.019 NT-Pro-B Natriuret Pep 63673 H 39266 H Impressions: Chest X-Ray 06/21/18 04:51 IMPRESSION: No pneumonia. Abdomen/Pelvis CT 06/22/18 00:00 IMPRESSION: Left double-J ureteral stent in good positioning. No left-sided hydronephrosis. Assessment and Plan - Diagnosis (1) Acute exacerbation of congestive heart failure Qualifiers: Heart failure type: systolic Qualified Code(s): I50.23 - Acute on chronic systolic (congestive) heart failure Is this a current diagnosis for this admission?: Yes Plan: Have requested medical records from [facility] where the patient was recently admitted and underwent echocardiogram. ProBNP is elevated; has trended upward. 32625-> 86163 Chest x-ray demonstrates mild cardiomegaly with small left pleural effusion CT of the abdomen and pelvis today did incidentally find trace bilateral pleural effusions with bibasilar atelectasis and moderate cardiomegaly The patient is admitted to the medical floor on continuous cardiac telemetry. The patient's atorvastatin is continued. Aspirin and anticoagulant are held secondary to gross hematuria. Continue diltiazem and metoprolol. The patient is not on SILVANA/arm secondary to renal function. She is receiving IV furosemide. Start low-dose spironolactone tomorrow for ascites noted on CT of the abdomen. Cardiac diet. Daily weights, strict I&O's. Cardiology has been consulted; appreciate Dr. Lau's assistance. (2) Acute respiratory failure with hypoxia Is this a current diagnosis for this admission?: Yes Plan: The patient did briefly require BiPAP; she is now maintaining oxygen saturations while on nasal cannula only. Lung sounds have improved as compared to notations from yesterday; diminished throughout with scant bibasilar crackles. CT of the abdomen and pelvis did incidentally find trace pleural effusions and bibasilar atelectasis. Continue to optimize cardiac medications. Supplemental oxygen as needed to maintain saturations >89% Continue home dose Spiriva and Brio. As needed nebulizer treatments. Incentive spirometer and flutter valve to bedside. (3) Atrial fibrillation with RVR Is this a current diagnosis for this admission?: Yes Plan: Patient briefly required diltiazem drip. She has been transitioned to p.o. metoprol and diltiazem. She was started on Eliquis and subsequently developed gross hematuria. This is been discontinued. We will need to evaluate risks/benefits of continued chronic anticoagulation and discussed with family prior to resuming. Cardiology has been consulted; appreciate Dr. Agarwal's assistance. (4) Chronic kidney disease (CKD) stage G3b/A3, moderately decreased glomerular filtration rate (GFR) between 30-44 mL/min/1.73 square meter and albuminuria creatinine ratio greater than 300 mg/g Is this a current diagnosis for this admission?: Yes Plan: Stable. Suspect that this is probably her baseline creatinine, Cr 1.96-> 2.05 Continue avoid nephrotoxic medications as able. She is requiring furosemide and spironolactone for management of CHF exacerbation with fluid volume overload. Monitor daily chemistries. Patient and family members advised that she has been told that she may require fistula and dialysis in the future; they are adamant that she would not ever desire to have dialysis and would rather pursue hospice services prior to that outcome. (5) Hematuria Is this a current diagnosis for this admission?: Yes Plan: The patient was recently admitted to [facility] for sepsis (unclear etiology) and requirement of left ureter stenting. She was placed on Eliquis secondary to atrial fibrillation with RVR and subsequently developed gross hematuria. Eliquis has subsequently been stopped. CT of the abdomen and pelvis was obtained; fortunately there is no hydronephrosis and the stent is in good position. We will continue to monitor for resolution of hematuria. Follow-up with urology as scheduled. - Time Time Spent with patient: 35 or more minutes Medications reviewed and adjusted accordingly: Yes Anticipated discharge: SNF
--- NOTE | 2018-06-22 20:52 | PDOC CONSULTATION ---
Consultation-Blank Consultation: CARDIOLOGY CONSULTATION by Dr. Kelly Agarwal on 06/22/2018. REASON FOR CONSULTATION: Atrial fibrillation with rapid ventricular response and congestive heart failure. CONSULT REQUESTING PHYSICIAN: Dr. Ariel Mccollum.
[2018-06-22] MEDS: ATORVASTATIN CALCIUM 10 MG TABLET PO SCH (21:22)
[2018-06-22] MEDS: IPRATROPIUM/ALBUTEROL 0.5-2.5 MG/3 ML AMPUL NEB PRN (23:37)
[2018-06-23] MEDS: FUROSEMIDE INJ/PF 20 MG/2 ML SDV IV SCH ×3 (05:33→21:37)
[2018-06-23 06:21] LABS: HEMATOCRIT 28.9 % (36.0-47.0); HEMOGLOBIN 9.9 g/dL (12.0-15.5); MEAN CORPUSCULAR HEMOGLOBIN 33.2 pg (27.0-33.4); MEAN CORPUSCULAR HGB CONC 34.1 g/dL (32.0-36.0); MEAN CORPUSCULAR VOLUME 97 fl (80-97); PLATELET COUNT 150 10^3/uL (150-450); RED BLOOD COUNT 2.97 10^6/uL (3.72-5.28); WHITE BLOOD COUNT 9.1 10^3/uL (4.0-10.5)
[2018-06-23 06:40] LABS: ANION GAP 10 (5-19); BLOOD UREA NITROGEN 51 mg/dL (7-20); CALCIUM 9.3 mg/dL (8.4-10.2); CARBON DIOXIDE 24 mmol/L (22-30); CHLORIDE 107 mmol/L (98-107); GLUCOSE 150 mg/dL (75-110); SODIUM 141.2 mmol/L (137-145)
[2018-06-23 06:41] LABS: POTASSIUM 4.7 mmol/L (3.6-5.0)
[2018-06-23] MEDS ORDERED: DIGOXIN INJ 0.5 MG/2 ML AMPULE ONE (08:03)
[2018-06-23] MEDS: INSULIN LISPRO 100 UNIT/ML 3 ML VIAL SUBCUT SCH ×3 (08:04→17:58)
[2018-06-23] MEDS ORDERED: DIGOXIN INJ 0.5 MG/2 ML AMPULE IV ONE (08:15)
[2018-06-23] MEDS: METOPROLOL TARTRATE 25 MG TABLET PO SCH ×2 (09:37→21:38)
[2018-06-23] MEDS: DILTIAZEM HCL 120 MG CAP.SR.24H PO SCH (09:37)
[2018-06-23] MEDS: FERROUS SULFATE 325 MG TABLET PO SCH ×2 (09:37→17:58)
[2018-06-23] MEDS: SPIRONOLACTONE 25 MG TABLET PO SCH (09:37)
[2018-06-23] MEDS: TIOTROPIUM BROMIDE DPI 5 CAP/KIT (18 MCG/CAP) IH SCH (09:38)
[2018-06-23] MEDS: FLUTICASONE/VILANTEROL 100-25 MCG/DOSE IH SCH (09:38)
[2018-06-23] MEDS ORDERED: DILTIAZEM HCL 180 MG CAPSULE.CR PO SCH (10:00)
--- NOTE | 2018-06-23 12:32 | ADVANCED CARE ---
Attendance: The patient, her daughter, and her granddaughter (surrogate decision-maker/POA) Mauri Carlson ([phone]). Resuscitation Status: Do Not Resuscitate Discussion: We discussed the patient's medical history, recent admission to [facility], and presenting complaints upon arrival to the emergency department yesterday. The patient has new diagnosis of CKD, CHF, A. fib, chronically anticoagulated. She had a prolonged and serious illness at [facility] that did require short- term dialysis and intubation. The patient is very frustrated by her need for additional hospital admission, numerous new medications, and previous providers recommendations that she restrict her left arm in anticipation of fistula and future dialysis needs. Patient reports that she is a DNR/DNI and has no interest in dialysis. Patient's family members, daughter and granddaughter, fully support this decision. They all admit to feeling quite overwhelmed by the patient's recent illnesses and management of comorbidities. They are asking for assistance in decision making and future planning. They are quite interested in meeting with the palliative care/hospice team and look forward. At this time, patient remains a DNR/DNI, with limited interventions and medical management. They would appreciate assistance in re-stabilizing the patient's acute CHF exacerbation so that she would be ready for discharge to SNF for short-term rehabilitation. They advised that she will not undergo future dialysis at that time would seek hospice care services. In the interim, they do wish to meet with palliative care and would appreciate them following along with the patient both while admitted and post discharge. Care Planning Goals: DNR/DNI No future dialysis Palliative care consultation/assistance now with hospice bridge in future. Document(s) Completed: DNR We will leave the MOST form with patient/family for review. Time Spent: 45 min
--- NOTE | 2018-06-23 18:47 | PDOC PROGRESS REPORT ---
Subjective Progress Note for:: 06/23/18 Subjective:: The patient is a 78-year-old female with a past medical history of hypertension, hyperlipidemia, systolic and diastolic CHF, A. fib, CKD, DM 2, and COPD all of which are new diagnoses as of a month ago when she was admitted to [facility] for E. coli bacteremia/sepsis secondary to renal calculi resulting in hydronephrosis requiring short-term intubation/mechanical ventilation, short- term renal replacement therapy, and ureter stent placement. Prior to her admiss [facility], she had very poor health care and so these comorbid conditions were not prior known despite likely being chronic in nature. The patient was seen on morning round; unfortunately no family members were present at that time. She was found resting in bed comfortably on supplemental oxygen via nasal cannula. She reports that she is not home O2 dependent. She does me she is feeling significantly better today and is noted to be more alert and engaging in conversation. Her only complaint today is loose stools (3 bowel movements this morning) but without abdominal discomfort, nausea or vomiting. Otherwise she denies fever, chills, chest pain, palpitations, orthopnea, abdominal pain, nausea vomiting, dysuria. We did briefly discuss the risks and benefits of chronic anticoagulation; has-bleed score of 5.8% and chads vas score of 7.2%. The patient states that she would like to continue holding chronic anticoagulation therapy until she has a chance to discuss this with her daughters prior to making a finalize decision. She has no questions or concerns at this time. No concerns per nursing at this time; hematuria appears to be resolving. Reason For Visit: AFIB/RVR,ACUTE CHF EXACERBATION Physical Exam Vital Signs: Temp Pulse Resp BP Pulse Ox 97.9 F 90 16 110/57 L 98 06/23/18 15:52 06/23/18 16:50 06/23/18 16:50 06/23/18 15:52 06/23/18 16:50 Intake & Output 06/22/18 06/23/18 06/24/18 06:59 06:59 06:59 Intake Total 310 624 Output Total 2100 1300 Balance -1790 -886 Weight 82.1 kg 94.2 kg General appearance: PRESENT: no acute distress, cooperative, hard of hearing, obese, well-developed, well-nourished Head exam: PRESENT: atraumatic, normocephalic Eye exam: PRESENT: conjunctiva pink, EOMI, PERRLA. ABSENT: scleral icterus Mouth exam: PRESENT: moist, tongue midline Teeth exam: PRESENT: poor dentation Neck exam: ABSENT: carotid bruit, JVD, lymphadenopathy, thyromegaly Respiratory exam: PRESENT: decreased breath sounds - Bibasilar, prolonged expiratory phas, symmetrical, unlabored, other - Supplemental oxygen via nasal cannula. ABSENT: crackles, rales, rhonchi, wheezes Cardiovascular exam: PRESENT: irregular rhythm, +S1, +S2, tachycardia. ABSENT: diastolic murmur, rubs, systolic murmur Pulses: PRESENT: normal dorsalis pedis pul Vascular exam: PRESENT: normal capillary refill GI/Abdominal exam: PRESENT: normal bowel sounds, soft. ABSENT: distended, gua rding, mass, organolmegaly, rebound, tenderness Rectal exam: PRESENT: deferred Extremities exam: PRESENT: full ROM. ABSENT: calf tenderness, clubbing, pedal edema Neurological exam: PRESENT: alert, awake, oriented to person, oriented to place, oriented to time, oriented to situation, CN II-XII grossly intact, other - Forge tful. ABSENT: motor sensory deficit Psychiatric exam: PRESENT: appropriate affect, normal mood. ABSENT: homicidal ideation, suicidal ideation Skin exam: PRESENT: dry, intact, warm. ABSENT: cyanosis, rash Results Laboratory Results: 06/23/18 05:51 06/23/18 05:51 06/23/18 06/23/18 05:51 05:51 WBC 9.1 RBC 2.97 L Hgb 9.9 L Hct 28.9 L MCV 97 MCH 33.2 MCHC 34.1 RDW 17.0 H Plt Count 150 Sodium 141.2 Potassium 4.7 Chloride 107 Carbon Dioxide 24 Anion Gap 10 BUN 51 H Creatinine 1.97 H Est GFR ( Amer) 30 L Est GFR (Non-Af Amer) 25 L Glucose 150 H Calcium 9.3 06/21/18 10:58 Clean Catch Midstream Urine Culture - Final NO GROWTH 2 DAYS 06/21/18 06/21/18 06/22/18 04:48 04:48 04:10 Troponin I 0.019 NT-Pro-B Natriuret Pep 67256 H 14599 H 06/23/18 05:51 Troponin I NT-Pro-B Natriuret Pep 33282 H Impressions: Chest X-Ray 06/21/18 04:51 IMPRESSION: No pneumonia. Abdomen/Pelvis CT 06/22/18 00:00 IMPRESSION: Left double-J ureteral stent in good positioning. No left-sided hydronephrosis. Assessment and Plan - Diagnosis (1) Acute exacerbation of congestive heart failure Qualifiers: Heart failure type: systolic Qualified Code(s): I50.23 - Acute on chronic systolic (congestive) heart failure Is this a current diagnosis for this admission?: Yes Plan: Received discharge summary from [facility]; echocardiogram done in their facility in April 2017 demonstrated LVEF of 40% with moderate diastolic dysfunction. ProBNP is elevated; 43908-> 01990--> 12908 Chest x-ray demonstrates mild cardiomegaly with small left pleural effusion CT of the abdomen and pelvis today did incidentally find trace bilateral pleural effusions with bibasilar atelectasis and moderate cardiomegaly The patient is admitted to the medical floor on continuous cardiac telemetry. The patient's atorvastatin is continued. Aspirin and anticoagulant are held secondary to gross hematuria. Continue diltiazem and metoprolol. The patient is not on SILVANA/ARB secondary to renal function. She is receiving IV furosemide. Continue low-dose spironolactone. Cardiac diet. Daily weights, strict I&O's. Cardiology has been consulted; appreciate Dr. Lau's assistance. (2) Acute respiratory failure with hypoxia Is this a current diagnosis for this admission?: Yes Plan: Improved; nursing has been able to wean oxygen. Currently on 2 lpm. The patient did briefly require BiPAP; she is now maintaining oxygen saturations while on nasal cannula only. Lung sounds have improved as compared to notations from yesterday; diminished throughout with scant bibasilar crackles. CT of the abdomen and pelvis did incidentally find trace pleural effusions and bibasilar atelectasis. Continue to optimize cardiac medications. Supplemental oxygen as needed to maintain saturations >89% Continue home dose Spiriva and Brio. As needed nebulizer treatments. Incentive spirometer and flutter valve to bedside. (3) Atrial fibrillation with RVR Is this a current diagnosis for this admission?: Yes Plan: Improved rate control today, remains in afib. Patient briefly required diltiazem drip. She has been transitioned to p.o. metoprol and diltiazem. She was started on Eliquis and subsequently developed gross hematuria. This is been discontinued. Has-Bled Score: 5.8%; CHADS-VASc Score: 7.2% We will need to evaluate risks/benefits of continued chronic anticoagulation and discussed with family prior to resuming. Cardiology has been consulted; appreciate Dr. Agarwal's assistance. (4) Chronic kidney disease (CKD) stage G3b/A3, moderately decreased glomerular filtration rate (GFR) between 30-44 mL/min/1.73 square meter and albuminuria creatinine ratio greater than 300 mg/g Is this a current diagnosis for this admission?: Yes Plan: Stable. Suspect that this is probably her baseline creatinine, Cr 1.96-> 2.05-> 1.97 Continue avoid nephrotoxic medications as able. She is requiring furosemide and spironolactone for management of CHF exacerbation with fluid volume overload. Monitor daily chemistries. Patient and family members advised that she has been told that she may require fistula and dialysis in the future; they are adamant that she would not ever desire to have dialysis and would rather pursue hospice services prior to that outcome. (5) Hematuria Is this a current diagnosis for this admission?: Yes Plan: Improved. The patient was recently admitted to [facility] for e.coli bacteremia/sepsis and requirement of left ureter stenting for renal calculi and hydronephrosis. She was placed on Eliquis secondary to atrial fibrillation with RVR and subsequently developed gross hematuria. Eliquis has subsequently been stopped. CT of the abdomen and pelvis was obtained; fortunately there is no hydronephrosis and the stent is in good position. We will continue to monitor for resolution of hematuria. Follow-up with urology as scheduled. - Time Time Spent with patient: 35 or more minutes Medications reviewed and adjusted accordingly: Yes Anticipated discharge: SNF Within: within 72 hours
[2018-06-23] MEDS: IPRATROPIUM/ALBUTEROL 0.5-2.5 MG/3 ML AMPUL NEB PRN (20:27)
[2018-06-23] MEDS: ATORVASTATIN CALCIUM 10 MG TABLET PO SCH (21:38)
[2018-06-24] MEDS: IPRATROPIUM/ALBUTEROL 0.5-2.5 MG/3 ML AMPUL NEB PRN ×2 (05:21→23:32)
[2018-06-24 05:48] LABS: HEMATOCRIT 28.7 % (36.0-47.0); HEMOGLOBIN 9.7 g/dL (12.0-15.5); MEAN CORPUSCULAR HEMOGLOBIN 32.5 pg (27.0-33.4); MEAN CORPUSCULAR HGB CONC 33.6 g/dL (32.0-36.0); MEAN CORPUSCULAR VOLUME 97 fl (80-97); PLATELET COUNT 145 10^3/uL (150-450); RED BLOOD COUNT 2.97 10^6/uL (3.72-5.28); RED CELL DISTRIBUTION WIDTH 17.5 % (11.5-14.0); WHITE BLOOD COUNT 7.7 10^3/uL (4.0-10.5)
[2018-06-24 06:16] LABS: ANION GAP 7 (5-19); BLOOD UREA NITROGEN 48 mg/dL (7-20); CALCIUM 8.6 mg/dL (8.4-10.2); CARBON DIOXIDE 29 mmol/L (22-30); CHLORIDE 104 mmol/L (98-107); GLUCOSE 161 mg/dL (75-110); POTASSIUM 3.8 mmol/L (3.6-5.0); SODIUM 139.6 mmol/L (137-145)
[2018-06-24] MEDS: FUROSEMIDE INJ/PF 20 MG/2 ML SDV IV SCH ×3 (06:48→21:01)
[2018-06-24] MEDS: INSULIN LISPRO 100 UNIT/ML 3 ML VIAL SUBCUT SCH ×3 (08:27→17:35)
[2018-06-24] MEDS: DILTIAZEM HCL 120 MG CAP.SR.24H PO SCH (09:53)
[2018-06-24] MEDS: FERROUS SULFATE 325 MG TABLET PO SCH ×2 (09:54→17:35)
[2018-06-24] MEDS: METOPROLOL TARTRATE 25 MG TABLET PO SCH ×2 (09:54→21:01)
[2018-06-24] MEDS: FLUTICASONE/VILANTEROL 100-25 MCG/DOSE IH SCH (09:55)
[2018-06-24] MEDS: SPIRONOLACTONE 25 MG TABLET PO SCH (09:55)
[2018-06-24] MEDS: TIOTROPIUM BROMIDE DPI 5 CAP/KIT (18 MCG/CAP) IH SCH (09:56)
--- NOTE | 2018-06-24 18:30 | PDOC PROGRESS REPORT ---
Subjective Progress Note for:: 06/24/18 Subjective:: The patient is a 78-year-old female with a past medical history of hypertension, hyperlipidemia, systolic and diastolic CHF, A. fib, CKD, DM 2, and COPD all of which are new diagnoses as of a month ago when she was admitted to [facility] for E. coli bacteremia/sepsis secondary to renal calculi resulting in hydronephrosis requiring short-term intubation/mechanical ventilation, short- term renal replacement therapy, and ureter stent placement. Prior to her admiss [facility], she had very poor health care and so these comorbid conditions were not prior known despite likely being chronic in nature. The patient was seen on morning round; spoke with the patient's daughter (VAN) by phone today. She was found resting in bed comfortably on supplemental oxygen via nasal cannula; does not use O2 at baseline. She reports she is feeling better today. She denies fever, chills, chest pain, palpitations, orthopnea, abdominal pain, nausea, vomiting, dysuria. We discussed my recommendations for Palliative Care services, which the patient was very much interested in. She indicates that she would be interested in hospice services; stating that she would like to decrease her medications, not continue to be readmitted to the hospital, is a DNR/DNI, no interest in dialysis services, etc. But wavers when she acknowledges that this means that "I would be admitting I'm mortal." She has no other questions or concerns at this time. Discussed with granddaughter the risks and benefits of chronic anticoagulation; has-bleed score of 5.8% and chads vas score of 7.2%. Granddaughter states that she would like to discuss with the patient and family members prior to making a finalize decision, does report that she anticipates that her grandmother with decline the medication at least until after her follow-up with urology next week when the stent will be removed. Most of the granddaughters questions are with regard to social needs; Medicaid, long-term care, hospice services. She is advised that our social workers will contact her shortly to help her navigate these decisions and application processes. No concerns per nursing at this time; hematuria appears to have resolved. Reason For Visit: AFIB/RVR,ACUTE CHF EXACERBATION Physical Exam Vital Signs: Temp Pulse Resp BP Pulse Ox 98.5 F 89 20 119/83 96 06/24/18 15:48 06/24/18 15:48 06/24/18 15:48 06/24/18 15:48 06/24/18 15:48 Intake & Output 06/23/18 06/24/18 06/25/18 06:59 06:59 06:59 Intake Total 310 1124 Output Total 2100 2550 Balance -1790 -1426 Weight 94.2 kg 90.1 kg General appearance: PRESENT: no acute distress, cooperative, hard of hearing, well-developed, well-nourished Head exam: PRESENT: atraumatic, normocephalic Eye exam: PRESENT: conjunctiva pink, EOMI, PERRLA. ABSENT: scleral icterus Mouth exam: PRESENT: moist, tongue midline Teeth exam: PRESENT: poor dentation Neck exam: ABSENT: carotid bruit, JVD, lymphadenopathy, thyromegaly Respiratory exam: PRESENT: clear to auscultation aditi, decreased breath sounds - Bibasilar, prolonged expiratory phas, symmetrical, unlabored, other - Supplemental oxygen via nasal cannula. ABSENT: rales, rhonchi, wheezes Cardiovascular exam: PRESENT: irregular rhythm, +S1, +S2. ABSENT: diastolic murmur, rubs, systolic murmur Pulses: PRESENT: normal dorsalis pedis pul Vascular exam: PRESENT: normal capillary refill GI/Abdominal exam: PRESENT: normal bowel sounds, soft. ABSENT: distended, guarding, mass, organolmegaly, rebound, tenderness Rectal exam: PRESENT: deferred Extremities exam: PRESENT: other - Limited range of motion right lower leg; chronic per granddaughter. ABSENT: calf tenderness, clubbing, pedal edema Neurological exam: PRESENT: alert, awake, oriented to person, oriented to place, oriented to time, oriented to situation, CN II-XII grossly intact, other - Forgetful and repetitive. ABSENT: motor sensory deficit Psychiatric exam: PRESENT: appropriate affect, normal mood. ABSENT: homicidal ideation, suicidal ideation Skin exam: PRESENT: dry, intact, warm, other - Ecchymosis to left third and fourth toe. ABSENT: cyanosis, rash Results Laboratory Results: 06/24/18 05:30 06/24/18 05:30 06/24/18 06/24/18 05:30 05:30 WBC 7.7 RBC 2.97 L Hgb 9.7 L Hct 28.7 L MCV 97 MCH 32.5 MCHC 33.6 RDW 17.5 H Plt Count 145 L Sodium 139.6 Potassium 3.8 Chloride 104 Carbon Dioxide 29 Anion Gap 7 BUN 48 H Creatinine 1.69 H Est GFR ( Amer) 35 L Est GFR (Non-Af Amer) 29 L Glucose 161 H Calcium 8.6 06/21/18 06/21/18 06/22/18 04:48 04:48 04:10 Troponin I 0.019 NT-Pro-B Natriuret Pep 45870 H 59902 H 06/23/18 06/24/18 05:51 05:30 Troponin I NT-Pro-B Natriuret Pep 31306 H 17719 H Impressions: Chest X-Ray 06/21/18 04:51 IMPRESSION: No pneumonia. Abdomen/Pelvis CT 06/22/18 00:00 IMPRESSION: Left double-J ureteral stent in good positioning. No left-sided hydronephrosis. Assessment and Plan - Diagnosis (1) Acute exacerbation of congestive heart failure Qualifiers: Heart failure type: systolic Qualified Code(s): I50.23 - Acute on chronic systolic (congestive) heart failure Is this a current diagnosis for this admission?: Yes Plan: Improved; lung sounds clear, oxygen requirement is decreased, dependent edema is reduced in the Patient transferred here for hand surgery by work potentially there is that she had a dialysis patient that she had dialysis today we will get any more days and I will but she will be here until after 4 so that I called her right back as a direct admit and then consult Shelby tomorrow received discharge summary from [facility]; echocardiogram done in their facility in April 2017 demonstrated LVEF of 40% with moderate diastolic dysfunction. ProBNP is elevated; 16426-> 65209--> 76436--> 43333 Chest x-ray demonstrates mild cardiomegaly with small left pleural effusion CT of the abdomen and pelvis today did incidentally find trace bilateral pleural effusions with bibasilar atelectasis and moderate cardiomegaly The patient is admitted to the medical floor on continuous cardiac telemetry. The patient's atorvastatin is continued. Aspirin and anticoagulant are held secondary to gross hematuria. Continue diltiazem and metoprolol. The patient is not on SILVANA/ARB secondary to renal function. She is receiving IV furosemide. Continue low-dose spironolactone. Cardiac diet. Daily weights, strict I&O's. Cardiology has been consulted; appreciate Dr. Lau's assistance. (2) Acute respiratory failure with hypoxia Is this a current diagnosis for this admission?: Yes Plan: Improved; nursing has been able to wean oxygen. Currently on 2 lpm. The patient did briefly require BiPAP; she is now maintaining oxygen saturations while on nasal cannula only. Lung sounds have improved as compared to notations from yesterday; diminished throughout with scant bibasilar crackles. CT of the abdomen and pelvis did incidentally find trace pleural effusions and bibasilar atelectasis. Continue to optimize cardiac medications. Supplemental oxygen as needed to maintain saturations >89% Continue home dose Spiriva and Brio. As needed nebulizer treatments. Incentive spirometer and flutter valve to bedside. (3) Atrial fibrillation with RVR Is this a current diagnosis for this admission?: Yes Plan: Improved rate control today, remains in afib. Patient briefly required diltiazem drip. She has been transitioned to p.o. metoprol and diltiazem. She was started on Eliquis and subsequently developed gross hematuria. This is been discontinued. Has-Bled Score: 5.8%; CHADS-VASc Score: 7.2% Have discussed the risks/benefits of continued chronic anticoagulation with patient and family; they would like to discuss with each other before making a final decision. Leaning towards holding the Eliquis at least until after her ureter stent is removed and then reevaluating with her PCP. Cardiology has been consulted; appreciate Dr. Agarwal's assistance. (4) Chronic kidney disease (CKD) stage G3b/A3, moderately decreased glomerular filtration rate (GFR) between 30-44 mL/min/1.73 square meter and albuminuria creatinine ratio greater than 300 mg/g Is this a current diagnosis for this admission?: Yes Plan: Stable. Suspect that this is probably her baseline creatinine, Cr 1.96-> 2.05-> 1.97-> 1.69 Continue avoid nephrotoxic medications as able. She is requiring furosemide and spironolactone for management of CHF exacerbation with fluid volume overload. Monitor daily chemistries. Patient and family members advised that she has been told that she may require fistula and dialysis in the future; they are adamant that she would not ever desire to have dialysis and would rather pursue hospice services prior to that outcome. (5) Hematuria Is this a current diagnosis for this admission?: Yes Plan: Improved. The patient was recently admitted to [facility] for e.coli bacteremia/sepsis and requirement of left ureter stenting for renal calculi and hydronephrosis. She was placed on Eliquis secondary to atrial fibrillation with RVR and subsequently developed gross hematuria. Eliquis has subsequently been stopped. CT of the abdomen and pelvis was obtained; fortunately there is no hydronephrosis and the stent is in good position. We will continue to monitor for resolution of hematuria. Follow-up with urology as scheduled. (6) Debility, unspecified Is this a current diagnosis for this admission?: Yes Plan: Generalized weakness following prolonged illness at outside hospital. Had been discharged to [place] for short-term rehab and then admitted to our facility within 48 hours. She also has right lower extremity weakness that the patient's granddaughter states is chronic from arthritis and prior orthopedic surgeries. Physical therapy has worked with the patient; she was a 2 person max assist to stand with only 1-2 sidesteps. Unable to bear full weight. Recommend SNF for short-term rehab with transition to long-term care option. Discharge planning has been consulted. - Time Time Spent with patient: 35 or more minutes Medications reviewed and adjusted accordingly: Yes Anticipated discharge: SNF Within: within 72 hours
[2018-06-24] MEDS: ATORVASTATIN CALCIUM 10 MG TABLET PO SCH (21:01)
[2018-06-25] MEDS: FUROSEMIDE INJ/PF 20 MG/2 ML SDV IV SCH ×2 (06:38→21:47)
[2018-06-25] MEDS: INSULIN LISPRO 100 UNIT/ML 3 ML VIAL SUBCUT SCH ×3 (08:19→17:18)
[2018-06-25 08:20] LABS: HEMATOCRIT 31.8 % (36.0-47.0); HEMOGLOBIN 10.9 g/dL (12.0-15.5); MEAN CORPUSCULAR HEMOGLOBIN 32.7 pg (27.0-33.4); MEAN CORPUSCULAR HGB CONC 34.4 g/dL (32.0-36.0); MEAN CORPUSCULAR VOLUME 95 fl (80-97); PLATELET COUNT 145 10^3/uL (150-450); RED BLOOD COUNT 3.34 10^6/uL (3.72-5.28); RED CELL DISTRIBUTION WIDTH 16.6 % (11.5-14.0); WHITE BLOOD COUNT 9.1 10^3/uL (4.0-10.5)
[2018-06-25 08:35] LABS: ANION GAP 9 (5-19); BLOOD UREA NITROGEN 43 mg/dL (7-20); CALCIUM 8.9 mg/dL (8.4-10.2); CARBON DIOXIDE 33 mmol/L (22-30); CHLORIDE 98 mmol/L (98-107); GLUCOSE 197 mg/dL (75-110); POTASSIUM 3.8 mmol/L (3.6-5.0); SODIUM 139.9 mmol/L (137-145)
[2018-06-25] MEDS: SPIRONOLACTONE 25 MG TABLET PO SCH (10:10)
[2018-06-25] MEDS: DILTIAZEM HCL 120 MG CAP.SR.24H PO SCH (10:10)
[2018-06-25] MEDS: METOPROLOL TARTRATE 25 MG TABLET PO SCH ×2 (10:10→21:46)
[2018-06-25] MEDS: FERROUS SULFATE 325 MG TABLET PO SCH ×2 (10:11→17:18)
[2018-06-25] MEDS: NYSTATIN CREAM 15 GM TP SCH ×2 (10:14→17:20)
[2018-06-25] MEDS: FLUTICASONE/VILANTEROL 100-25 MCG/DOSE IH SCH (10:14)
[2018-06-25] MEDS: TIOTROPIUM BROMIDE DPI 5 CAP/KIT (18 MCG/CAP) IH SCH (10:15)
--- NOTE | 2018-06-25 16:16 | PDOC PROGRESS REPORT ---
Subjective Progress Note for:: 06/25/18 Subjective:: The patient is a 78-year-old female with a past medical history of hypertension, hyperlipidemia, systolic and diastolic CHF, A. fib, CKD, DM 2, and COPD all of which are new diagnoses as of a month ago when she was admitted to [facility] for E. coli bacteremia/sepsis secondary to renal calculi resulting in hydronephrosis requiring short-term intubation/mechanical ventilation, short- term renal replacement therapy, and ureter stent placement. Prior to her admiss ion, she had very poor health care and so these comorbid conditions were not prior known despite likely being chronic in nature. The patient was seen on morning rounds. She was found resting in bed comfortably on supplemental oxygen via nasal cannula at 2 lpm; does not use O2 at baseline. She reports she is feeling better today. She denies fever, chills, chest pain, palpitations, orthopnea, cough, abdominal pain, nausea, vomiting, dysuria. Nursing reports that the patient has an appointment scheduled for Wednesday at [facility] for preoperative clearance; ureter stent to be removed on June 29. I called and left a message with the nursing supervisor pile driving at [facility]; may need to reschedule that appointment. I do anticipate that the patient will be ready for discharge on Wednesday but due to her needing to go to SNF for placement, it is unlikely that we will be able to arrange for her to attend that appointment on Wednesday and then proceed directly to SNF. We will check with discharge planning. Reason For Visit: AFIB/RVR,ACUTE CHF EXACERBATION Physical Exam Vital Signs: Temp Pulse Resp BP Pulse Ox 98.0 F 112 H 19 117/53 L 100 06/25/18 11:05 06/25/18 14:00 06/25/18 11:05 06/25/18 11:05 06/25/18 11:05 Intake & Output 06/24/18 06/25/18 06/26/18 06:59 06:59 06:59 Intake Total 1124 1229 1539 Output Total 2550 3900 1100 Balance -0461 -1519 439 Weight 90.1 kg 89.1 kg General appearance: PRESENT: no acute distress, cooperative, hard of hearing, obese, well-developed, well-nourished Head exam: PRESENT: atraumatic, normocephalic Eye exam: PRESENT: conjunctiva pink, EOMI, PERRLA. ABSENT: scleral icterus Mouth exam: PRESENT: moist, tongue midline Teeth exam: PRESENT: poor dentation Neck exam: ABSENT: carotid bruit, JVD, lymphadenopathy, thyromegaly Respiratory exam: PRESENT: clear to auscultation aditi, prolonged expiratory phas, symmetrical, unlabored. ABSENT: rales, rhonchi, wheezes Cardiovascular exam: PRESENT: irregular rhythm, +S1, +S2. ABSENT: diastolic murmur, rubs, systolic murmur Pulses: PRESENT: normal dorsalis pedis pul Vascular exam: PRESENT: normal capillary refill GI/Abdominal exam: PRESENT: normal bowel sounds, soft. ABSENT: distended, guarding, mass, organolmegaly, rebound, tenderness Rectal exam: PRESENT: deferred Extremities exam: PRESENT: other - Limited range of motion right lower extremity; chronic per granddaughter. ABSENT: calf tenderness, clubbing, pedal edema Neurological exam: PRESENT: alert, awake, oriented to person, oriented to place, oriented to time, oriented to situation, CN II-XII grossly intact, other - Forgetful/repetitive. ABSENT: motor sensory deficit Psychiatric exam: PRESENT: appropriate affect, normal mood. ABSENT: homicidal ideation, suicidal ideation Skin exam: PRESENT: dry, intact, warm. ABSENT: cyanosis, rash Results Laboratory Results: 06/25/18 07:59 06/25/18 07:59 06/25/18 06/25/18 07:59 07:59 WBC 9.1 RBC 3.34 L Hgb 10.9 L Hct 31.8 L MCV 95 MCH 32.7 MCHC 34.4 RDW 16.6 H Plt Count 145 L Sodium 139.9 Potassium 3.8 Chloride 98 Carbon Dioxide 33 H Anion Gap 9 BUN 43 H Creatinine 1.47 H Est GFR ( Amer) 42 L Est GFR (Non-Af Amer) 34 L Glucose 197 H Calcium 8.9 06/21/18 06/21/18 06/22/18 04:48 04:48 04:10 Troponin I 0.019 NT-Pro-B Natriuret Pep 59068 H 90993 H 06/23/18 06/24/18 06/25/18 05:51 05:30 07:59 Troponin I NT-Pro-B Natriuret Pep 23429 H 01925 H 7860 H Impressions: Chest X-Ray 06/21/18 04:51 IMPRESSION: No pneumonia. Abdomen/Pelvis CT 06/22/18 00:00 IMPRESSION: Left double-J ureteral stent in good positioning. No left-sided hydronephrosis. Assessment and Plan - Diagnosis (1) Acute exacerbation of congestive heart failure Qualifiers: Heart failure type: systolic Qualified Code(s): I50.23 - Acute on chronic systolic (congestive) heart failure Is this a current diagnosis for this admission?: Yes Plan: Improved; lung sounds clear, oxygen requirement is decreased, dependent edema is reduced in the Patient transferred here for hand surgery by work potentially there is that she had a dialysis patient that she had dialysis today we will get any more days and I will but she will be here until after 4 so that I called her right back as a direct admit and then consult Shelby tomorrow received discharge summary from [facility]; echocardiogram done in their facility in April 2017 demonstrated LVEF of 40% with moderate diastolic dysfunction. ProBNP is elevated; 06931-> 09656--> 23306--> 08326-> 7860 Chest x-ray demonstrates mild cardiomegaly with small left pleural effusion CT of the abdomen and pelvis today did incidentally find trace bilateral pleural effusions with bibasilar atelectasis and moderate cardiomegaly The patient is admitted to the medical floor on continuous cardiac telemetry. The patient's atorvastatin is continued. Aspirin and anticoagulant are held secondary to gross hematuria. Continue diltiazem and metoprolol. The patient is not on SILVANA/ARB secondary to renal function. She is receiving IV furosemide; dose decreased today. Anticipate transition to p.o. furosemide tomorrow. Continue low-dose spironolactone. Cardiac diet. Daily weights, strict I&O's. Cardiology has been consulted; appreciate Dr. Lau's assistance. (2) Acute respiratory failure with hypoxia Is this a current diagnosis for this admission?: Yes Plan: Improved; nursing has been able to wean oxygen. Currently on 2 lpm. The patient did briefly require BiPAP; she is now maintaining oxygen saturations while on nasal cannula only. Lung sounds have improved as compared to notations from yesterday; diminished throughout with scant bibasilar crackles. CT of the abdomen and pelvis did incidentally find trace pleural effusions and bibasilar atelectasis. Continue to optimize cardiac medications. Supplemental oxygen as needed to maintain saturations >89% Continue home dose Spiriva and Brio. As needed nebulizer treatments. Incentive spirometer and flutter valve to bedside. (3) Atrial fibrillation with RVR Is this a current diagnosis for this admission?: Yes Plan: Improved rate control today, remains in afib. Patient briefly required diltiazem drip. She has been transitioned to p.o. metoprol and diltiazem. She was started on Eliquis and subsequently developed gross hematuria. This is been discontinued. Has-Bled Score: 5.8%; CHADS-VASc Score: 7.2% Have discussed the risks/benefits of continued chronic anticoagulation with patient and family; they would like to discuss with each other before making a final decision. Leaning towards holding the Eliquis at least until after her ureter stent is removed and then reevaluating with her PCP. Cardiology has been consulted; appreciate Dr. Agarwal's assistance. (4) Chronic kidney disease (CKD) stage G3b/A3, moderately decreased glomerular filtration rate (GFR) between 30-44 mL/min/1.73 square meter and albuminuria creatinine ratio greater than 300 mg/g Is this a current diagnosis for this admission?: Yes Plan: Stable; improving with resolution of acute CHF exacerbation. Suspect that this is probably her baseline creatinine, Cr 1.96-> 2.05-> 1.97-> 1.69-> 1.47 Continue avoid nephrotoxic medications as able. She is requiring furosemide and spironolactone for management of CHF exacerbation with fluid volume overload. Monitor daily chemistries. Patient and family members advised that she has been told that she may require fistula and dialysis in the future; they are adamant that she would not ever desire to have dialysis and would rather pursue hospice services prior to that outcome. (5) Hematuria Is this a current diagnosis for this admission?: Yes Plan: Improved. The patient was recently admitted to [facility] for e.coli bacteremia/sepsis and requirement of left ureter stenting for renal calculi and hydronephrosis. She was placed on Eliquis secondary to atrial fibrillation with RVR and subsequently developed gross hematuria. Eliquis has subsequently been stopped. CT of the abdomen and pelvis was obtained; fortunately there is no hydronephros is and the stent is in good position. We will continue to monitor for resolution of hematuria. Follow-up with urology as scheduled; left a message with the nursing supervisor pile driving at [facility] to request assistance with rescheduling her preoperative appointment for Wednesday. (6) Debility, unspecified Is this a current diagnosis for this admission?: Yes Plan: Generalized weakness following prolonged illness at outside hospital. Had been discharged to [place] for short-term rehab and then admitted to our facility within 48 hours. She also has right lower extremity weakness that the patient's granddaughter states is chronic from arthritis and prior orthopedic surgeries. Physical therapy has worked with the patient; she was a 2 person max assist to stand with only 1-2 sidesteps. Unable to bear full weight. Recommend SNF for short-term rehab with transition to long-term care option. Patient family interested in [place]. Discharge planning has been consulted. - Time Time Spent with patient: 25-34 minutes Medications reviewed and adjusted accordingly: Yes Anticipated discharge: SNF Within: within 48 hours
--- NOTE | 2018-06-25 21:29 | Progress Note ---
Provider Note Provider Note: CARDIOLOGY PROGRESS NOTE by Dr. Kelly Agarwal on 06/24/2018.
--- NOTE | 2018-06-25 21:30 | Progress Note ---
Provider Note Provider Note: CARDIOLOGY PROGRESS NOTE by Dr. Kelly Agarwal on 06/25/2018.
[2018-06-25] MEDS: ATORVASTATIN CALCIUM 10 MG TABLET PO SCH (21:46)
[2018-06-26 07:50] LABS: HEMATOCRIT 31.4 % (36.0-47.0); HEMOGLOBIN 10.7 g/dL (12.0-15.5); MEAN CORPUSCULAR HEMOGLOBIN 32.4 pg (27.0-33.4); MEAN CORPUSCULAR HGB CONC 34.2 g/dL (32.0-36.0); MEAN CORPUSCULAR VOLUME 95 fl (80-97); PLATELET COUNT 155 10^3/uL (150-450); RED BLOOD COUNT 3.32 10^6/uL (3.72-5.28); WHITE BLOOD COUNT 9.1 10^3/uL (4.0-10.5)
[2018-06-26 08:07] LABS: ANION GAP 10 (5-19); BLOOD UREA NITROGEN 35 mg/dL (7-20); CALCIUM 8.6 mg/dL (8.4-10.2); CARBON DIOXIDE 30 mmol/L (22-30); CHLORIDE 101 mmol/L (98-107); GLUCOSE 161 mg/dL (75-110); POTASSIUM 4.4 mmol/L (3.6-5.0); SODIUM 140.6 mmol/L (137-145)
[2018-06-26] MEDS: INSULIN LISPRO 100 UNIT/ML 3 ML VIAL SUBCUT SCH ×3 (08:43→16:55)
[2018-06-26] MEDS: FERROUS SULFATE 325 MG TABLET PO SCH ×2 (09:03→18:29)
[2018-06-26] MEDS: METOPROLOL TARTRATE 25 MG TABLET PO SCH ×2 (09:03→21:26)
[2018-06-26] MEDS: SPIRONOLACTONE 25 MG TABLET PO SCH (09:03)
[2018-06-26] MEDS: FUROSEMIDE INJ/PF 20 MG/2 ML SDV IV SCH (09:04)
[2018-06-26] MEDS: DILTIAZEM HCL 120 MG CAP.SR.24H PO SCH (09:04)
[2018-06-26] MEDS: FLUTICASONE/VILANTEROL 100-25 MCG/DOSE IH SCH (09:07)
[2018-06-26] MEDS: TIOTROPIUM BROMIDE DPI 5 CAP/KIT (18 MCG/CAP) IH SCH (09:08)
[2018-06-26] MEDS: NYSTATIN CREAM 15 GM TP SCH ×2 (09:09→18:29)
[2018-06-26] MEDS ORDERED: BISACODYL 10 MG SUPP.RECT PR PRN (12:01)
[2018-06-26] MEDS ORDERED: MAGNESIUM HYDROXIDE SUSP 30 ML UDCUP PO PRN (12:01)
--- NOTE | 2018-06-26 12:07 | PDOC PROGRESS REPORT ---
Subjective Progress Note for:: 06/26/18 Subjective:: The patient is a 78-year-old female with a past medical history of hypertension, hyperlipidemia, systolic and diastolic CHF, A. fib, CKD, DM 2, and COPD all of which are new diagnoses as of a month ago when she was admitted to [facility] for E. coli bacteremia/sepsis secondary to renal calculi resulting in hydronephrosis requiring short-term intubation/mechanical ventilation, short- term renal replacement therapy, and ureter stent placement. Prior to her admiss [facility], she had very poor health care and so these comorbid conditions were not prior known despite likely being chronic in nature. The patient was seen on morning rounds. She was found resting in bed comfortably on room air. She tells me that she is feeling really good today, but does have some constipation and would like a stool softener. She denies fever, chills, chest pain, palpitations, orthopnea, cough, abdominal pain, nausea, vomiting, dysuria. Otherwise, she has no new questions or concerns. No concerns per nursing. Reason For Visit: AFIB/RVR,ACUTE CHF EXACERBATION Physical Exam Vital Signs: Temp Pulse Resp BP Pulse Ox 98.3 F 87 14 122/72 98 06/26/18 08:10 06/26/18 10:11 06/26/18 10:11 06/26/18 08:10 06/26/18 10:11 Intake & Output 06/25/18 06/26/18 06/27/18 06:59 06:59 06:59 Intake Total 1229 1539 Output Total 3900 1999 Balance -4271 -450 Weight 89.1 kg 86.4 kg General appearance: PRESENT: no acute distress, cooperative, hard of hearing, obese, well-developed, well-nourished Head exam: PRESENT: atraumatic, normocephalic Eye exam: PRESENT: conjunctiva pink, EOMI, PERRLA. ABSENT: scleral icterus Mouth exam: PRESENT: moist, tongue midline Teeth exam: PRESENT: poor dentation Neck exam: ABSENT: carotid bruit, JVD, lymphadenopathy, thyromegaly Respiratory exam: PRESENT: clear to auscultation aditi, symmetrical, unlabored. ABSENT: rales, rhonchi, wheezes Cardiovascular exam: PRESENT: irregular rhythm, +S1, +S2. ABSENT: diastolic mu rmur, rubs, systolic murmur Pulses: PRESENT: normal dorsalis pedis pul Vascular exam: PRESENT: normal capillary refill GI/Abdominal exam: PRESENT: normal bowel sounds, soft. ABSENT: distended, guarding, mass, organolmegaly, rebound, tenderness Rectal exam: PRESENT: deferred Extremities exam: PRESENT: other - LROM RLE. ABSENT: calf tenderness, clubbing, pedal edema Neurological exam: PRESENT: alert, awake, oriented to person, oriented to place, oriented to time, oriented to situation, CN II-XII grossly intact. ABSENT: motor sensory deficit Psychiatric exam: PRESENT: appropriate affect, normal mood. ABSENT: homicidal ideation, suicidal ideation Skin exam: PRESENT: dry, intact, warm. ABSENT: cyanosis, rash Results Laboratory Results: 06/26/18 06:58 06/26/18 06:58 06/26/18 06/26/18 06:58 06:58 WBC 9.1 RBC 3.32 L Hgb 10.7 L Hct 31.4 L MCV 95 MCH 32.4 MCHC 34.2 RDW 17.0 H Plt Count 155 Sodium 140.6 Potassium 4.4 Chloride 101 Carbon Dioxide 30 Anion Gap 10 BUN 35 H Creatinine 1.32 H Est GFR ( Amer) 47 L Est GFR (Non-Af Amer) 39 L Glucose 161 H Calcium 8.6 06/21/18 07:01 Blood Blood Culture - Final NO GROWTH IN 5 DAYS 06/21/18 05:19 Blood Blood Culture - Final NO GROWTH IN 5 DAYS 06/21/18 06/21/18 06/22/18 04:48 04:48 04:10 Troponin I 0.019 NT-Pro-B Natriuret Pep 77983 H 10214 H 06/23/18 06/24/18 06/25/18 05:51 05:30 07:59 Troponin I NT-Pro-B Natriuret Pep 00595 H 45765 H 7860 H Impressions: Chest X-Ray 06/21/18 04:51 IMPRESSION: No pneumonia. Abdomen/Pelvis CT 06/22/18 00:00 IMPRESSION: Left double-J ureteral stent in good positioning. No left-sided hydronephrosis. Assessment and Plan - Diagnosis (1) Acute exacerbation of congestive heart failure Qualifiers: Heart failure type: systolic Qualified Code(s): I50.23 - Acute on chronic systolic (congestive) heart failure Is this a current diagnosis for this admission?: Yes Plan: Resolved. Patient transferred here for hand surgery by work potentially there is that she had a dialysis patient that she had dialysis today we will get any more days and I will but she will be here until after 4 so that I called her right back as a direct admit and then consult Shelby tomorrow received discharge summary from [facility]; echocardiogram done in their facility in April 2017 demonstrated LVEF of 40% with moderate diastolic dysfunction. ProBNP is elevated; 85873-> 97371--> 74973--> 86005-> 7860 Chest x-ray demonstrates mild cardiomegaly with small left pleural effusion CT of the abdomen and pelvis today did incidentally find trace bilateral pleural effusions with bibasilar atelectasis and moderate cardiomegaly The patient is admitted to the medical floor on continuous cardiac telemetry. The patient's atorvastatin is continued. Aspirin and anticoagulant are held secondary to gross hematuria. Continue diltiazem and metoprolol. The patient is not on SILVANA/ARB secondary to renal function. Transition to p.o. furosemide today. Continue low-dose spironolactone. Cardiac diet. Daily weights, strict I&O's. Cardiology has been consulted; appreciate Dr. Lau's assistance. (2) Acute respiratory failure with hypoxia Is this a current diagnosis for this admission?: Yes Plan: Resolved; now maintaining oxygen saturations on room air. The patient did briefly require BiPAP; she is now maintaining oxygen saturations while on nasal cannula only. Lung sounds have improved as compared to notations from yesterday; diminished throughout with scant bibasilar crackles. CT of the abdomen and pelvis did incidentally find trace pleural effusions and bibasilar atelectasis. Continue to optimize cardiac medications. Supplemental oxygen as needed to maintain saturations >89% Continue home dose Spiriva and Brio. As needed nebulizer treatments. Incentive spirometer and flutter valve to bedside. (3) Atrial fibrillation with RVR Is this a current diagnosis for this admission?: Yes Plan: Improved rate control today, remains in afib. Patient briefly required diltiazem drip. She has been transitioned to p.o. metoprol and diltiazem. She was started on Eliquis and subsequently developed gross hematuria. This is been discontinued. Has-Bled Score: 5.8%; CHADS-VASc Score: 7.2% Have discussed the risks/benefits of continued chronic anticoagulation with patient and family; they would like to discuss with each other before making a final decision. Leaning towards holding the Eliquis at least until after her ureter stent is removed and then reevaluating with her PCP. Cardiology has been consulted; appreciate Dr. Agarwal's assistance. (4) Chronic kidney disease (CKD) stage G3b/A3, moderately decreased glomerular filtration rate (GFR) between 30-44 mL/min/1.73 square meter and albuminuria creatinine ratio greater than 300 mg/g Is this a current diagnosis for this admission?: Yes Plan: Stable; improving with resolution of acute CHF exacerbation. Suspect that this is probably her baseline creatinine, Cr 1.96-> 2.05-> 1.97-> 1.69-> 1.47-> 1.32 Continue avoid nephrotoxic medications as able. She is requiring furosemide and spironolactone for management of CHF exacerbation with fluid volume overload. Monitor daily chemistries. Patient and family members advised that she has been told that she may require fistula and dialysis in the future; they are adamant that she would not ever desire to have dialysis and would rather pursue hospice services prior to that outcome. (5) Hematuria Is this a current diagnosis for this admission?: Yes Plan: Appears to have resolved. The patient was recently admitted to [facility] for e.coli bacteremia/sepsis and requirement of left ureter stenting for renal calculi and hydronephrosis. She was placed on Eliquis secondary to atrial fibrillation with RVR and subsequently developed gross hematuria. Eliquis has subsequently been stopped. CT of the abdomen and pelvis was obtained; fortunately there is no hydronephrosis and the stent is in good position. Spoke with discharge planning. Best course of action would be for the patient or her family member to call and attempt to reschedule her preoperative appointment for Wednesday or Wednesday; she would then be able to keep her urology appointment to have the stent removed on . Patient will likely be discharged to SNF tomorrow; rehab facility can arrange transport to these appointments. Otherwise, reschedule both preop and surgical appointments for the following week. Will discuss with patient's granddaughter. (6) Debility, unspecified Is this a current diagnosis for this admission?: Yes Plan: Generalized weakness following prolonged illness at outside hospital. Had been discharged to [place] for short-term rehab and then admitted to our facility w kimoin 48 hours. She also has right lower extremity weakness that the patient's granddaughter states is chronic from arthritis and prior orthopedic surgeries. Physical therapy has worked with the patient; she was a 2 person max assist to stand with only 1-2 sidesteps. Unable to bear full weight. Recommend SNF for short-term rehab with transition to long-term care option. Patient family interested in [place]. Discharge planning has been consulted. (7) Constipation Is this a current diagnosis for this admission?: Yes Plan: Colace twice daily. Milk of magnesia or Dulcolax suppository daily as needed. - Time Time Spent with patient: 15-24 minutes Medications reviewed and adjusted accordingly: Yes Anticipated discharge: SNF Within: when bed available
[2018-06-26] MEDS: FUROSEMIDE 20 MG TABLET PO SCH (15:05)
[2018-06-26] MEDS: LISINOPRIL 5 MG TABLET PO SCH (15:06)
[2018-06-26] MEDS: DOCUSATE SODIUM 100 MG CAPSULE PO SCH (18:29)
--- NOTE | 2018-06-26 20:53 | Progress Note ---
Provider Note Provider Note: CARDIOLOGY PROGRESS NOTE by Dr. Kelly Agarwal on 06/26/2018. Consult requesting physician: Dr. Ariel Mccollum the hospitalist. REASON FOR CONSULTATION: Atrial fibrillation with rapid ventricular response. SUBJECTIVE: The patient continues to be in atrial fibrillation. Her heart rate is anywhere from 94 to 124 bpm. But she is asymptomatic and not aware of any palpitations. She denies any chest pain or discomfort. There is no PND orthopnea. There is no wheezing or acute exacerbation of asthma. There is no bleeding on Eliquis. There is no TIA CVA symptoms. She denies any flank pain. There is no hematuria. PHYSICAL EXAMINATION: The patient is mildly obese. She is well-groomed. In no acute distress. Selected Entries 06/26/18 06/26/18 06/26/18 16:00 16:18 17:00 Temperature 98.0 F Temperature Oral Source Heart Rate ( 94 124 Monitors) Respiratory 19 Rate Blood Pressure 106/63 Blood Pressure 77 Mean BP Location Right Arm BP Position Supine O2 Sat by Pulse 98 Oximetry Oxygen Delivery Room Air Method HEAD: Is atraumatic normocephalic. EYES: Pupils are equal round regular reactive to light accommodation. Extraocular movements are normal. There is no conjunctival pallor. There is no scleral icterus. EARS: Tympanic membranes are intact, extremity external auditory canals are clear. NOSE: There is no inflammation of the nasal mucous membrane. There is no deviated nasal septum. MOUTH: Mucous membranes of mouth are moist tongue is moist. There is no ulcers. There is no bleeding from the gums. THROAT: There is no redness of the oropharynx. There is no exudates. SKIN: There is no skin rashes or skin les ions. There is no petechia or ecchymosis. NECK: Is supple. There is no JVD.. Carotids are equal there is no bruits. There is no lymphadenopathy. There is no goiter. There is no accessory muscles of respiration use. Trachea central. LUNGS: Is clear to auscultation without any rhonchi rales or wheezing. There is no rales of CHF. On palpation there is no chest wall tenderness. HEART: S1-S2 is heard S1 is of variable intensity. There is no S3 gallop. There is no S4 gallop. There is systolic murmur in the left sternal border and the apex there is no rub. ABDOMEN: Is soft. Nontender. There is no hepatospleno megaly. Bowel sounds are well heard. EXTREMITIES: Femorals are diminished there is no femoral bruits. Leg pulses are well felt. There is no pedal edema. There is no DVT or cellulitis. There is no calf tenderness [employer]: The patient is conscious awake alert oriented x3 with no focal deficits. PSYCHIATRIC: The patient judgment insight are intact her affect is normal. 06/26/18 06/26/18 06:58 06:58 WBC 9.1 RBC 3.32 L Hgb 10.7 L Hct 31.4 L MCV 95 MCH 32.4 MCHC 34.2 RDW 17.0 H Plt Count 155 Sodium 140.6 Potassium 4.4 Chloride 101 Carbon Dioxide 30 Anion Gap 10 BUN 35 H Creatinine 1.32 H Est GFR (Non-Af Amer) 39 L Glucose 161 H Calcium 8.6 IMPRESSION/RECOMMENDATION: 1. Persistent atrial fibrillation. The patient's heart rate is not well controlled. We will increase the patient's Toprol XL to 25 mg p.o. every 12 hours. Continue the patient on Eliquis. 2. Acute on chronic systolic heart failure and due to atrial for ablation with rapid ventricular response. At present compensated. Note that the patient's LV ejection fraction [facility] was said to be 40%. 3. Cardiomyopathy? Etiology: With moderately reduced LV ejection fraction 40%. At present stable. Will add lisinopril. 4. Hypertension: Blood pressure on the lower normal side. 5. Chronic kidney disease stage III: Avoid nephrotoxic drugs. Would recheck the patient's BMP in the morning in view of the patient being started on lisinopril 6. History of asthma: At present no acute exacerbation of asthma. 7. History of left ureteral calculus removed and status post left ureteral J stent. MEDICATIONS reviewed medications adjusted medical decision making is of moderate to high complexity, in view of the need to adjust the patient's medications. Cardiac status is stable. The patient being discharged tomorrow. Hence will sign off. Please call me if my services are needed again. Thank you for this consultation. Note 40% spent on this patient with more than 50% of time spent in direct patient care. The patient is DNR, and her daughter is her surrogate healthcare decision maker.
[2018-06-26] MEDS: ATORVASTATIN CALCIUM 10 MG TABLET PO SCH (21:26)
[2018-06-27 04:58] LABS: ANION GAP 8 (5-19); BLOOD UREA NITROGEN 31 mg/dL (7-20); CALCIUM 8.6 mg/dL (8.4-10.2); CARBON DIOXIDE 33 mmol/L (22-30); CHLORIDE 100 mmol/L (98-107); GLUCOSE 176 mg/dL (75-110); POTASSIUM 3.5 mmol/L (3.6-5.0); SODIUM 140.8 mmol/L (137-145)
[2018-06-27] MEDS: LISINOPRIL 5 MG TABLET PO SCH ×2 (05:24→17:19)
[2018-06-27] MEDS: FUROSEMIDE 40 MG TABLET PO SCH (07:54)
[2018-06-27] MEDS: INSULIN LISPRO 100 UNIT/ML 3 ML VIAL SUBCUT SCH ×3 (07:56→16:27)
[2018-06-27] MEDS: SPIRONOLACTONE 25 MG TABLET PO SCH (09:04)
[2018-06-27] MEDS ORDERED: POTASSIUM CHLORIDE 20 MEQ PACKET PO ONE (09:05)
[2018-06-27] MEDS: FERROUS SULFATE 325 MG TABLET PO SCH ×2 (09:05→17:19)
[2018-06-27] MEDS: DILTIAZEM HCL 120 MG CAP.SR.24H PO SCH (09:05)
[2018-06-27] MEDS: METOPROLOL TARTRATE 25 MG TABLET PO SCH ×2 (09:06→21:21)
[2018-06-27] MEDS: TIOTROPIUM BROMIDE DPI 5 CAP/KIT (18 MCG/CAP) IH SCH (09:06)
[2018-06-27] MEDS: FLUTICASONE/VILANTEROL 100-25 MCG/DOSE IH SCH (09:06)
[2018-06-27] MEDS: DOCUSATE SODIUM 100 MG CAPSULE PO SCH ×2 (09:13→17:14)
[2018-06-27] MEDS: NYSTATIN CREAM 15 GM TP SCH ×2 (09:15→17:19)
--- NOTE | 2018-06-27 11:58 | PDOC TRANSFER SUMMARY ---
Addendum entered and electronically signed by IRENA BURNS NP-C 06/27/18 15:08: Provider Note Provider Note: Addendum: Spoke with Dr. Christopher, [facility], patient's preoperative appointment is scheduled for: 06/29/18 at [address] [place] [address] Patient must attend this appointment for surgical clearance to have her left ureter stent removed on 06/30/18. Original Note: General - Admit/Disc Date/PCP Admission Date/Primary Care Provider: 06/21/18 09:45 INOCENTE BONILLA PA-C Discharge Date: 06/27/18 - Discharge Diagnosis (1) Acute exacerbation of congestive heart failure Is this a current diagnosis for this admission?: Yes Summary: Resolved. Discharge summary from [facility]; echocardiogram done in their facility in April 2017 demonstrated LVEF of 40% with moderate diastolic dysfunction. ProBNP is elevated; 77231-> 21188--> 31061--> 85921-> 7860 Chest x-ray demonstrates mild cardiomegaly with small left pleural effusion CT of the abdomen and pelvis today did incidentally find trace bilateral pleural effusions with bibasilar atelectasis and moderate cardiomegaly The patient was admitted to [facility] on continuous cardiac telemetry. Cardiology was consulted. The patient's diltiazem was continued, metoprolol increased per cardiology, started on low-dose lisinopril yesterday (creatinine appears stable), diuresed with IV furosemide which has been transitioned to p.o. furosemide, with initiation of spironolactone resulting in resolution of the patient's acute CHF exacerbation. Recommend continued daily aspirin and statin therapy. Long discussions had with both the patient and family members regarding bleed risk with chronic anticoagulants; they have requested the anticoagulants be held until the ureter stent is removed and patient has completed rehab. At that time they would like to discuss with PCP recommendations to resume. Recommend continued cardiac diet and daily weights. At time of discharge, patient is in stable condition, maintaining oxygen saturations on room air with clear lung sounds and resolution of her dependent edema. Recommend patient follow-up with Dr. Agarwal in 4 to 6 weeks. Return to the emergency department as needed for concerning symptoms. (2) Acute respiratory failure with hypoxia Is this a current diagnosis for this admission?: Yes Summary: Resolved. The patient did briefly require BiPAP; she is now maintaining oxygen saturations on room air. CT of the abdomen and pelvis did incidentally find trace pleural effusions and bibasilar atelectasis. Recommend patient continue home dose Brio and Spiriva with as needed nebulizer treatments. (3) Atrial fibrillation with RVR Is this a current diagnosis for this admission?: Yes Summary: Now rate controlled; remains in A. fib. Patient briefly required diltiazem drip. She has been transitioned to p.o. metoprol and diltiazem. Cardiology consultation was obtained. Has-Bled Score: 5.8%; CHADS-VASc Score: 7.2% Have discussed the risks/benefits of continued chronic anticoagulation with patient and family; they would like to discuss with each other before making a final decision. Leaning towards holding the Eliquis at least until after her ureter stent is removed and then reevaluating with her PCP. (4) Chronic kidney disease (CKD) stage G3b/A3, moderately decreased glomerular filtration rate (GFR) between 30-44 mL/min/1.73 square meter and albuminuria creatinine ratio greater than 300 mg/g Is this a current diagnosis for this admission?: Yes Summary: Stable; improved with resolution of acute CHF exacerbation. Suspect that this is probably her baseline creatinine, Cr 1.96-> 2.05-> 1.97-> 1.69-> 1.47-> 1.32-> 1.42 Continue avoid nephrotoxic medications as able. Patient and family members advised that she has been told that she may require fistula and dialysis in the future; they are adamant that she would not ever jah michelet to have dialysis and would rather pursue hospice services prior to that outcome. (5) Hematuria Is this a current diagnosis for this admission?: Yes Summary: Appears to have resolved. The patient was recently admitted to [facility] for e.coli bacteremia/sepsis and requirement of left ureter stenting for renal calculi and hydronephrosis. She was placed on Eliquis secondary to atrial fibrillation with RVR and subsequently developed gross hematuria. Eliquis has subsequently been stopped. CT of the abdomen and pelvis was obtained; fortunately there is no hydronephrosis and the stent is in good position. Patient's granddaughter reports that her preoperative appointment and ureter stent removal for this week have been canceled; she is awaiting to hear back from the scheduling office to have this appointment rescheduled. Patient will require transportation to and from [facility] for her preoperative appointments with urology services and for her procedure appointment. Please follow-up to ensure that these occur within the next 2 to 4 weeks. (6) Debility, unspecified Is this a current diagnosis for this admission?: Yes Summary: Generalized weakness following prolonged illness at outside hospital. Had been discharged to [place] for short-term rehab and then admitted to our facility within 48 hours. She also has right lower extremity weakness that the patient's granddaughter states is chronic from arthritis and prior orthopedic surgeries. Physical therapy has worked with the patient; she was a 2 person max assist to stand with only 1-2 sidesteps. Unable to bear full weight. Recommend SNF for short-term rehab with transition to long-term care option; patient and family agreeable. (7) Constipation Is this a current diagnosis for this admission?: Yes Summary: Resolved. - Additional Information Resuscitation Status: Do Not Resuscitate Discharge Diet: Cardiac, Diabetic Discharge Activity: Activity As Tolerated, Balance Activity w/Rest Prescriptions: Diltiazem HCl [Cardizem Cd 120 mg Capsule] 120 mg PO DAILY #30 cap.sr.24h Furosemide [Lasix 20 mg Tablet] 20 mg PO DAILY@1400 #30 tablet Furosemide [Lasix 40 mg Tablet] 40 mg PO DAILY@0800 #30 tablet Lisinopril [Prinivil 5 mg Tablet] 2.5 mg PO Q12A #60 tablet Metoprolol Tartrate [Lopressor 25 mg Tablet] 25 mg PO Q12 #60 tablet Spironolactone [Aldactone 25 mg Tablet] 25 mg PO DAILY #30 tablet Home Medications: Acetaminophen [Tylenol 325 mg Tablet] 325 mg PO Q4H PRN 06/21/18 Albuterol Sulfate [Ventolin 0.083% Neb 2.5 mg/3 mL Ampul] 1 vial NEB Q2H PRN 06/21/18 Budesonide/Formoterol Fumarate [Symbicort HFA 80-4.5 mcg Inhaler 6.9 gm] 2 puff IH BID 06/21/18 Ferrous Sulfate [Iron] 325 mg PO BID 06/21/18 Folic Acid [Folvite 1 mg Tablet] 1 mg PO DAILY 06/21/18 Insulin Aspart [Novolog Flexpen] 0 unit SUBCUT .SLD SCALE 06/21/18 Ipratropium/Albuterol Sulfate [Duoneb 3 ml Ampul] 3 ml NEB Q6H 06/21/18 Melatonin/Pyridoxine HCl (B6) [Melatonin 1 mg Tablet] 1 each PO QHS PRN 06/21/18 Pravastatin Sodium 40 mg PO QHS 06/21/18 Tiotropium [place] [Spiriva Handihaler 5 Cap/Kit (18 Mcg/Cap)] 1 cap IH DAILY 06/21/18 Diltiazem HCl [Cardizem Cd 120 mg Capsule] 120 mg PO DAILY #30 cap.sr.24h 06/27/18 Docusate Sodium [Colace 100 mg Capsule] 100 mg PO BID capsule 06/27/18 Furosemide [Lasix 20 mg Tablet] 20 mg PO DAILY@1400 #30 tablet 06/27/18 Furosemide [Lasix 40 mg Tablet] 40 mg PO DAILY@0800 #30 tablet 06/27/18 Lisinopril [Prinivil 5 mg Tablet] 2.5 mg PO Q12A #60 tablet 06/27/18 Metoprolol Tartrate [Lopressor 25 mg Tablet] 25 mg PO Q12 #60 tablet 06/27/18 Spironolactone [Aldactone 25 mg Tablet] 25 mg PO DAILY #30 tablet 06/27/18 History of Present Illness Admission Date/PCP: 06/21/18 09:45 INOCENTE BONILLA PA-C History of Present Illness: Per H&P by Dr. Mccollum: SOTO YOUNG is a 78 year old female who was transferred to [facility] from this hospital approximately 4 weeks ago for septic shock due to a pyelonephritis due to an infected obstructing ureteral stone. Not all of the details of the hospitalization are clear at this time as we do not yet have the records, but apparently she was just discharged from the hospital to [place] less than 48 hours ago. The granddaughter, who is the medical power of admitted attorneys, did not think the patient was ready to be discharged yet, because she was still having some trouble with shortness of breath and was in atrial fibrillation which she did not think was being controlled very well. It is reiterated again that I do not know all the details from the medical record at [facility], all I know is what the patient's granddaughter is telling me. Apparently while she was there, she had been in atrial fibrillation for several weeks, since very close to the time when she had been admitted to the hospital there. They also found out there approximately 1 week ago that the patient has heart failure with an EF of 40%. The granddaughter says she remembered this because she had another family member who she took care of who had heart failure and she knew that the ejection fraction was an important number. It is not clear if at this time the patient is still on antibiotics, but she apparently still has a stent in her ureter. Apparently she had no prior history of any heart problems before she got admitted to the hospital a few weeks ago. She presented to the ER today after having shortness of breath at [facility]. Apparently she was also hypoxemic over there, and when EMS got there they put her on 4 L nasal cannula her oxygen saturation were in the upper 90s. She had to be put on BiPAP in the ER here. She is gotten several nebulizer treatments with no relief. She denies any chest pain. She has not had any obvious ischemic EKG changes, but her EKG does show what looks like an atrial fibrillation with a rapid rate. She was put on a Cardizem drip in the ER and at 5 mg an hour, her rate was controlled in the 90s whenever I saw her. The granddaughter said that regarding the heart failure, patient had an echocardiogram but did not have any further ischemic workup such as a stress test or a cardiac catheterization, and she has never had either of these tests in the past. Physical Exam Vital Signs: Temp Pulse Resp BP Pulse Ox 98.0 F 93 18 114/55 L 97 06/27/18 08:14 06/27/18 08:14 06/27/18 08:14 06/27/18 08:14 06/27/18 08:14 Intake & Output 06/26/18 06/27/18 06/28/18 06:59 06:59 06:59 Intake Total 1539 404 Output Total 1999 2526 Balance -461 -1558 Weight 86.4 kg 85.9 kg General appearance: PRESENT: no acute distress, cooperative, hard of hearing, well-developed, well-nourished Head exam: PRESENT: atraumatic, normocephalic Eye exam: PRESENT: conjunctiva pink, EOMI, PERRLA. ABSENT: scleral icterus Mouth exam: PRESENT: moist, tongue midline Neck exam: ABSENT: carotid bruit, JVD, lymphadenopathy, thyromegaly Respiratory exam: PRESENT: clear to auscultation aditi, symmetrical, unlabored. ABSENT: rales, rhonchi, wheezes Cardiovascular exam: PRESENT: irregular rhythm, +S1, +S2. ABSENT: diastolic murmur, rubs, systolic murmur Pulses: PRESENT: normal dorsalis pedis pul Vascular exam: PRESENT: normal capillary refill GI/Abdominal exam: PRESENT: normal bowel sounds, soft. ABSENT: distended, guarding, mass, organolmegaly, rebound, tenderness Rectal exam: PRESENT: deferred Extremities exam: PRESENT: full ROM. ABSENT: calf tenderness, clubbing, pedal edema Neurological exam: PRESENT: alert, awake, oriented to person, oriented to place, oriented to time, oriented to situation, CN II-XII grossly intact, other - Slight forgetfulness/repetitiveness. ABSENT: motor sensory deficit Psychiatric exam: PRESENT: appropriate affect, normal mood. ABSENT: homicidal ideation, suicidal ideation Skin exam: PRESENT: dry, intact, warm. ABSENT: cyanosis, rash Results Laboratory Results: 06/26/18 06:58 06/27/18 04:17 06/27/18 04:17 Sodium 140.8 Potassium 3.5 L Chloride 100 Carbon Dioxide 33 H Anion Gap 8 BUN 31 H Creatinine 1.41 H Est GFR ( Amer) 44 L Est GFR (Non-Af Amer) 36 L Glucose 176 H Calcium 8.6 06/21/18 07:01 Blood Blood Culture - Final NO GROWTH IN 5 DAYS 06/21/18 05:19 Blood Blood Culture - Final NO GROWTH IN 5 DAYS 06/21/18 06/21/18 06/22/18 04:48 04:48 04:10 Troponin I 0.019 NT-Pro-B Natriuret Pep 29959 H 10648 H 06/23/18 06/24/18 06/25/18 05:51 05:30 07:59 Troponin I NT-Pro-B Natriuret Pep 50870 H 26553 H 7860 H Impressions: Chest X-Ray 06/21/18 04:51 IMPRESSION: No pneumonia. Abdomen/Pelvis CT 06/22/18 00:00 IMPRESSION: Left double-J ureteral stent in good positioning. No left-sided hydronephrosis. Transfer Plan - Disposition Transfer Plan: Fall discharge to SNF for short-term rehab. - Time Spent with Patient Time spent with patient: Greater than 30 Minutes Qualifiers - * PATIENT BEING DISCHARGED WITH ANY OF THE FOLLOWING DIAGNOSIS: Heart Failure HF Pt being discharged on ACEI for LVEF less than 40%?: Yes HF Pt being discharged on ARBS for LVEF less than 40%?: No Reason(s) for not prescribing ARBS:: Not indicated HF Pt with Afib discharged with Warfarin?: No Reason(s) for not prescribing Warfarin:: Drug declined by patient HF Pt discharged on evidence-based Beta Luiza:: Yes Plan Discharge Plan: Discharge to SNF for short-term rehab. Recommend palliative care referral. Recommend follow-up CBC and BMP in 5 to 7 days. Patient to have preoperative appointment at [facility] within the next 1 to 2 weeks for ureter stent removal. The patient's granddaughter reports that she is attempting to schedule those appointments at this time. Recommend establishing with local fast food crew member with follow-up in 4 to 6 weeks. Time Spent: Greater than 30 Minutes
[2018-06-27] MEDS: FUROSEMIDE 20 MG TABLET PO SCH (12:59)
[2018-06-27] MEDS: ATORVASTATIN CALCIUM 10 MG TABLET PO SCH (21:20)
[2018-06-28] MEDS: LISINOPRIL 5 MG TABLET PO SCH ×2 (05:06→17:26)
[2018-06-28] MEDS: INSULIN LISPRO 100 UNIT/ML 3 ML VIAL SUBCUT SCH ×3 (08:31→17:21)
[2018-06-28] MEDS: FUROSEMIDE 40 MG TABLET PO SCH (08:31)
[2018-06-28] MEDS: DOCUSATE SODIUM 100 MG CAPSULE PO SCH ×2 (09:59→17:23)
[2018-06-28] MEDS: FERROUS SULFATE 325 MG TABLET PO SCH ×2 (10:16→17:26)
[2018-06-28] MEDS: TIOTROPIUM BROMIDE DPI 5 CAP/KIT (18 MCG/CAP) IH SCH (10:16)
[2018-06-28] MEDS: METOPROLOL TARTRATE 25 MG TABLET PO SCH ×2 (10:16→21:39)
[2018-06-28] MEDS: FLUTICASONE/VILANTEROL 100-25 MCG/DOSE IH SCH (10:16)
[2018-06-28] MEDS: DILTIAZEM HCL 120 MG CAP.SR.24H PO SCH (10:16)
[2018-06-28] MEDS: SPIRONOLACTONE 25 MG TABLET PO SCH (10:16)
[2018-06-28] MEDS: NYSTATIN CREAM 15 GM TP SCH ×2 (10:17→17:25)
--- NOTE | 2018-06-28 10:31 | Progress Note ---
Provider Note Provider Note: Addendum to DC summary: date of discharge is 06-28-18.
[2018-06-28] MEDS: FUROSEMIDE 20 MG TABLET PO SCH (13:50)
--- NOTE | 2018-06-28 18:27 | PDOC PROGRESS REPORT ---
Subjective Progress Note for:: 06/28/18 Subjective:: No adverse events overnight. No new complaints. She was supposed to go to [facility] today but some logistical problems arise. She has a preop visit to have her ureteral stent removed tomorrow, and the procedure was planned to happen the day after tomorrow. [facility] said that they cannot transport her 3 times during one stay. Reason For Visit: AFIB/RVR,ACUTE CHF EXACERBATION Physical Exam Vital Signs: Temp Pulse Resp BP Pulse Ox 98.4 F 77 18 100/56 L 96 06/28/18 15:37 06/28/18 15:37 06/28/18 15:37 06/28/18 15:37 06/28/18 15:37 Intake & Output 06/27/18 06/28/18 06/29/18 06:59 06:59 06:59 Intake Total 404 640 356 Output Total 1850 1540 800 Balance -1446 -900 -444 Weight 85.9 kg 84.1 kg 84.1 kg General appearance: PRESENT: no acute distress, cooperative, hard of hearing, obese, well-developed, well-nourished Respiratory exam: PRESENT: clear to auscultation aditi, symmetrical, unlabored. ABSENT: rales, rhonchi, wheezes Cardiovascular exam: PRESENT: irregular rhythm, +S1, +S2. ABSENT: diastolic murmur, rubs, systolic murmur Pulses: PRESENT: normal dorsalis pedis pul Vascular exam: PRESENT: normal capillary refill GI/Abdominal exam: PRESENT: normal bowel sounds, soft. ABSENT: distended, guarding, mass, organolmegaly, rebound, tenderness Extremities exam: PRESENT: other - LROM RLE. ABSENT: calf tenderness, clubbing, pedal edema Neurological exam: PRESENT: alert, awake, oriented to person, oriented to place, oriented to time, oriented to situation Results Laboratory Results: 06/26/18 06:58 06/27/18 04:17 06/21/18 06/21/18 06/22/18 04:48 04:48 04:10 Troponin I 0.019 NT-Pro-B Natriuret Pep 54839 H 85330 H 06/23/18 06/24/18 06/25/18 05:51 05:30 07:59 Troponin I NT-Pro-B Natriuret Pep 75541 H 62785 H 7860 H Impressions: Chest X-Ray 06/21/18 04:51 IMPRESSION: No pneumonia. Abdomen/Pelvis CT 06/22/18 00:00 IMPRESSION: Left double-J ureteral stent in good positioning. No left-sided hydronephrosis. Assessment and Plan - Diagnosis (1) Acute respiratory failure with hypoxia Is this a current diagnosis for this admission?: Yes Plan: Resolved (2) Acute exacerbation of congestive heart failure Qualifiers: Heart failure type: systolic Qualified Code(s): I50.23 - Acute on chronic systolic (congestive) heart failure Is this a current diagnosis for this admission?: Yes Plan: Resolved. Patient now euvolemic (3) Atrial fibrillation with RVR Is this a current diagnosis for this admission?: Yes Plan: Rate controlled. Anticoagulation is planning to be resumed after her ureteral stent is removed. (4) Chronic kidney disease (CKD) stage G3b/A3, moderately decreased glomerular filtration rate (GFR) between 30-44 mL/min/1.73 square meter and albuminuria creatinine ratio greater than 300 mg/g Is this a current diagnosis for this admission?: Yes Plan: Creatinine stable at what we suspect to be her baseline - Time Time Spent with patient: 25-34 minutes - Plan Summary Plan Summary: We are going to try to see if we can get the preop visit taking care of while she is here, and then get her sent to to have the stent removed, and from there to [facility].
[2018-06-28] MEDS: ATORVASTATIN CALCIUM 10 MG TABLET PO SCH (21:39)
[2018-06-29] MEDS: LISINOPRIL 5 MG TABLET PO SCH ×2 (06:08→18:24)
[2018-06-29] MEDS: FUROSEMIDE 40 MG TABLET PO SCH (08:52)
[2018-06-29] MEDS: INSULIN LISPRO 100 UNIT/ML 3 ML VIAL SUBCUT SCH ×3 (08:52→18:23)
[2018-06-29] MEDS: DILTIAZEM HCL 120 MG CAP.SR.24H PO SCH (09:02)
[2018-06-29] MEDS: METOPROLOL TARTRATE 25 MG TABLET PO SCH ×2 (09:02→21:22)
[2018-06-29] MEDS: SPIRONOLACTONE 25 MG TABLET PO SCH (09:02)
[2018-06-29] MEDS: FERROUS SULFATE 325 MG TABLET PO SCH ×2 (09:02→18:24)
[2018-06-29] MEDS: FLUTICASONE/VILANTEROL 100-25 MCG/DOSE IH SCH (09:03)
[2018-06-29] MEDS: DOCUSATE SODIUM 100 MG CAPSULE PO SCH ×2 (09:05→18:25)
[2018-06-29] MEDS: NYSTATIN CREAM 15 GM TP SCH ×2 (09:10→18:26)
[2018-06-29] MEDS: TIOTROPIUM BROMIDE DPI 5 CAP/KIT (18 MCG/CAP) IH SCH (09:41)
[2018-06-29] MEDS: CALCIUM CARBONATE 500 MG TAB.CHEW PO PRN ×2 (11:07→15:42)
[2018-06-29] MEDS: FUROSEMIDE 20 MG TABLET PO SCH (14:15)
--- NOTE | 2018-06-29 16:18 | PDOC PROGRESS REPORT ---
Subjective Progress Note for:: 06/29/18 Subjective:: No adverse events overnight. No new complaints. Vital signs been stable. No chest pain or shortness of breath. Eating and drinking without difficulty. She was sitting up in the bed talking on the telephone whenever I came to see her this morning. Reason For Visit: AFIB/RVR,ACUTE CHF EXACERBATION Physical Exam Vital Signs: Temp Pulse Resp BP Pulse Ox 97.8 F 74 20 104/53 L 100 06/29/18 11:17 06/29/18 14:00 06/29/18 11:17 06/29/18 11:17 06/29/18 11:17 Intake & Output 06/28/18 06/29/18 06/30/18 06:59 06:59 06:59 Intake Total 640 356 150 Output Total 1540 2400 200 Balance -900 -2044 -50 Weight 84.1 kg 85 kg General appearance: PRESENT: no acute distress, cooperative, hard of hearing, obese, well-developed, well-nourished Respiratory exam: PRESENT: clear to auscultation aditi, symmetrical, unlabored. ABSENT: rales, rhonchi, wheezes Cardiovascular exam: PRESENT: irregular rhythm, +S1, +S2. ABSENT: diastolic murmur, rubs, systolic murmur Pulses: PRESENT: normal dorsalis pedis pul Vascular exam: PRESENT: normal capillary refill GI/Abdominal exam: PRESENT: normal bowel sounds, soft. ABSENT: distended, guarding, mass, organolmegaly, rebound, tenderness Extremities exam: PRESENT: other - LROM RLE. ABSENT: calf tenderness, clubbing, pedal edema Neurological exam: PRESENT: alert, awake, oriented to person, oriented to place, oriented to time, oriented to situation Results Laboratory Results: 06/26/18 06:58 06/27/18 04:17 06/21/18 06/21/18 06/22/18 04:48 04:48 04:10 Troponin I 0.019 NT-Pro-B Natriuret Pep 90922 H 46565 H 06/23/18 06/24/18 06/25/18 05:51 05:30 07:59 Troponin I NT-Pro-B Natriuret Pep 17164 H 51027 H 7860 H Impressions: Chest X-Ray 06/21/18 04:51 IMPRESSION: No pneumonia. Abdomen/Pelvis CT 06/22/18 00:00 IMPRESSION: Left double-J ureteral stent in good positioning. No left-sided hydronephrosis. Assessment and Plan - Diagnosis (1) Acute respiratory failure with hypoxia Is this a current diagnosis for this admission?: Yes Plan: Resolved (2) Acute exacerbation of congestive heart failure Qualifiers: Heart failure type: systolic Qualified Code(s): I50.23 - Acute on chronic systolic (congestive) heart failure Is this a current diagnosis for this admission?: Yes Plan: Resolved. Patient now euvolemic (3) Atrial fibrillation with RVR Is this a current diagnosis for this admission?: Yes Plan: Rate controlled. Anticoagulation is planning to be resumed after her ureteral stent is removed. (4) Chronic kidney disease (CKD) stage G3b/A3, moderately decreased glomerular filtration rate (GFR) between 30-44 mL/min/1.73 square meter and albuminuria creatinine ratio greater than 300 mg/g Is this a current diagnosis for this admission?: Yes Plan: Creatinine stable at what we suspect to be her baseline - Time Time Spent with patient: 15-24 minutes - Plan Summary Plan Summary: Per case management, the patient will have her preop evaluation for her stent removal to be done here today. Tomorrow she will be transported for her stent removal, and then will be transferred to [facility] for rehab.
[2018-06-29] MEDS: ATORVASTATIN CALCIUM 10 MG TABLET PO SCH (21:22)
[2018-06-30] MEDS: LISINOPRIL 5 MG TABLET PO SCH (05:33)
[2018-06-30] MEDS: INSULIN LISPRO 100 UNIT/ML 3 ML VIAL SUBCUT SCH ×2 (09:36→13:57)
[2018-06-30] MEDS: FUROSEMIDE 40 MG TABLET PO SCH (09:36)
[2018-06-30] MEDS: DOCUSATE SODIUM 100 MG CAPSULE PO SCH (09:41)
[2018-06-30] MEDS: SPIRONOLACTONE 25 MG TABLET PO SCH (09:41)
[2018-06-30] MEDS: FERROUS SULFATE 325 MG TABLET PO SCH (09:44)
[2018-06-30] MEDS: NYSTATIN CREAM 15 GM TP SCH (09:51)
[2018-06-30] MEDS: DILTIAZEM HCL 120 MG CAP.SR.24H PO SCH (10:02)
[2018-06-30] MEDS: TIOTROPIUM BROMIDE DPI 5 CAP/KIT (18 MCG/CAP) IH SCH (10:02)
[2018-06-30] MEDS: METOPROLOL TARTRATE 25 MG TABLET PO SCH (10:02)
[2018-06-30] MEDS: FLUTICASONE/VILANTEROL 100-25 MCG/DOSE IH SCH (10:03)
[2018-06-30] MEDS: FUROSEMIDE 20 MG TABLET PO SCH (13:58)
--- NOTE | 2018-06-30 16:55 | PDOC PROGRESS REPORT ---
Subjective Subjective:: No adverse events overnight. No new complaints. Vital signs been stable. No chest pain or shortness of breath. Eating and drinking without difficulty. She was sitting up in the bed watching television whenever I came to see her this morning, she was in good spirits. Reason For Visit: AFIB/RVR,ACUTE CHF EXACERBATION Physical Exam Vital Signs: Temp Pulse Resp BP Pulse Ox 98.2 F 104 H 16 107/50 L 99 06/30/18 11:01 06/30/18 11:01 06/30/18 11:01 06/30/18 11:01 06/30/18 11:01 Intake & Output 06/29/18 06/30/18 07/01/18 06:59 06:59 06:59 Intake Total 356 428 Output Total 2400 600 250 Balance -4 -172 -250 Weight 85 kg 83.6 kg General appearance: PRESENT: no acute distress, cooperative, hard of hearing, obese, well-developed, well-nourished Respiratory exam: PRESENT: clear to auscultation aditi, symmetrical, unlabored. ABSENT: rales, rhonchi, wheezes Cardiovascular exam: PRESENT: irregular rhythm, +S1, +S2. ABSENT: diastolic murmur, rubs, systolic murmur Pulses: PRESENT: normal dorsalis pedis pul Vascular exam: PRESENT: normal capillary refill GI/Abdominal exam: PRESENT: normal bowel sounds, soft. ABSENT: distended, gu arding, mass, organolmegaly, rebound, tenderness Extremities exam: PRESENT: other - LROM RLE. ABSENT: calf tenderness, clubbing, pedal edema Neurological exam: PRESENT: alert, awake, oriented to person, oriented to place, oriented to time, oriented to situation Results Laboratory Results: 06/26/18 06:58 06/27/18 04:17 06/21/18 06/21/18 06/22/18 04:48 04:48 04:10 Troponin I 0.019 NT-Pro-B Natriuret Pep 57214 H 75637 H 06/23/18 06/24/18 06/25/18 05:51 05:30 07:59 Troponin I NT-Pro-B Natriuret Pep 22949 H 90189 H 7860 H Impressions: Chest X-Ray 06/21/18 04:51 IMPRESSION: No pneumonia. Abdomen/Pelvis CT 06/22/18 00:00 IMPRESSION: Left double-J ureteral stent in good positioning. No left-sided hydronephrosis. Assessment and Plan - Diagnosis (1) Acute respiratory failure with hypoxia Is this a current diagnosis for this admission?: Yes Plan: Resolved (2) Acute exacerbation of congestive heart failure Qualifiers: Heart failure type: systolic Qualified Code(s): I50.23 - Acute on chronic systolic (congestive) heart failure Is this a current diagnosis for this admission?: Yes Plan: Resolved. Patient now euvolemic (3) Atrial fibrillation with RVR Is this a current diagnosis for this admission?: Yes Plan: Rate controlled. Anticoagulation is planning to be resumed after her ureteral stent is removed. (4) Chronic kidney disease (CKD) stage G3b/A3, moderately decreased glomerular filtration rate (GFR) between 30-44 mL/min/1.73 square meter and albuminuria creatinine ratio greater than 300 mg/g Is this a current diagnosis for this admission?: Yes Plan: Creatinine stable at what we suspect to be her baseline - Time Time Spent with patient: 15-24 minutes - Plan Summary Plan Summary: She will go today to get her ureteral stent removed, come back here [facility], and go to [place] tomorrow.
[2018-07-01] MEDS: NYSTATIN CREAM 15 GM TP SCH ×3 (00:43→18:56)
[2018-07-01] MEDS: LISINOPRIL 5 MG TABLET PO SCH ×3 (00:44→18:56)
[2018-07-01] MEDS: FERROUS SULFATE 325 MG TABLET PO SCH ×3 (00:44→18:55)
[2018-07-01] MEDS: DOCUSATE SODIUM 100 MG CAPSULE PO SCH ×3 (00:44→18:50)
[2018-07-01] MEDS: METOPROLOL TARTRATE 25 MG TABLET PO SCH ×3 (00:47→21:08)
[2018-07-01] MEDS: ATORVASTATIN CALCIUM 10 MG TABLET PO SCH ×2 (00:47→21:10)
--- NOTE | 2018-07-01 09:06 | Progress Note ---
Provider Note Provider Note: This is an addendum to the previously dictated transfer summary from 27 June 2018. There is been no change in the patient's condition. There has been no change to the patient's plan of care. Her stay was extended because of the logistics surrounding the preop evaluation and subsequent endoscopic ureteral stent removal, which she successfully underwent yesterday. The plan is to discharge her to [facility] this morning.
[2018-07-01] MEDS: SPIRONOLACTONE 25 MG TABLET PO SCH (09:11)
[2018-07-01] MEDS: FUROSEMIDE 40 MG TABLET PO SCH (09:11)
[2018-07-01] MEDS: DILTIAZEM HCL 120 MG CAP.SR.24H PO SCH (09:11)
[2018-07-01] MEDS: INSULIN LISPRO 100 UNIT/ML 3 ML VIAL SUBCUT SCH ×4 (09:11→18:48)
[2018-07-01] MEDS: TIOTROPIUM BROMIDE DPI 5 CAP/KIT (18 MCG/CAP) IH SCH (09:14)
[2018-07-01] MEDS: FLUTICASONE/VILANTEROL 100-25 MCG/DOSE IH SCH (09:15)
[2018-07-01] MEDS: FUROSEMIDE 20 MG TABLET PO SCH (14:14)
[2018-07-01 16:24] VITALS: BP 105/77
[2018-07-01] MEDS: CALCIUM CARBONATE 500 MG TAB.CHEW PO PRN (21:16)
== END 2018-07-01 22:11 | DRG 291 ==
LOC: ER 04:42 → EH 09:45 → 3S 06-22 10:48
PROVIDERS: ADMIT Family Medicine; ATTEND Family Medicine
PROC: 5A09357 Assistance with Respiratory Ventilation, Less than 24 Consecutive Hours, Continuous Positive Airway Pressure (ICD-10-PCS; principal; 2018-06-21)
PROC: 3E0F3GC Introduction of Other Therapeutic Substance into Respiratory Tract, Percutaneous Approach (ICD-10-PCS; 2018-06-24)
DX: I13.0 Hypertensive heart and chronic kidney disease with heart failure and stage 1 through stage 4 chronic kidney disease, or unspecified chronic kidney disease (principal); I50.43 Acute on chronic combined systolic (congestive) and diastolic (congestive) heart failure; J96.01 Acute respiratory failure with hypoxia; I48.1 Persistent atrial fibrillation; E11.22 Type 2 diabetes mellitus with diabetic chronic kidney disease; J44.9 Chronic obstructive pulmonary disease, unspecified; N18.3 Chronic kidney disease, stage 3 (moderate); R31.9 Hematuria, unspecified; F03.90 Unspecified dementia, unspecified severity, without behavioral disturbance, psychotic disturbance, mood disturbance, and anxiety; E78.5 Hyperlipidemia, unspecified; J45.909 Unspecified asthma, uncomplicated; E66.9 Obesity, unspecified; K59.00 Constipation, unspecified; R53.81 Other malaise; H91.90 Unspecified hearing loss, unspecified ear; Z96.653 Presence of artificial knee joint, bilateral; Z96.619 Presence of unspecified artificial shoulder joint; Z79.4 Long term (current) use of insulin; Z82.49 Family history of ischemic heart disease and other diseases of the circulatory system; Z83.438 Family history of other disorder of lipoprotein metabolism and other lipidemia; Z68.29 Body mass index [BMI] 29.0-29.9, adult; Z87.442 Personal history of urinary calculi
CPT/HCPCS: 36415; 71045; 74176; 80048; 80053; 81001; 82803; 82962; 83605; 83880; 84484; 85025; 85027; 85610; 87040; 87086; 93005; 93010; 94660; 94667; 94799; 96365; 96366; 96375; 96376; 99291; J1160; J1815; J1940; J2930; J3490; J7620

== ENCOUNTER 2019-01-23 17:01 | Inpatient (IN) | payer MEDICARE ==
--- NOTE | 2019-01-23 17:31 | RADIOLOGY REPORT (SQ) ---
EXAM DESCRIPTION: CHEST SINGLE VIEW COMPLETED DATE/TIME: 01/23/2019 5:16 pm REASON FOR STUDY: bed 9 sepsis protocol COMPARISON: 06/21/2018. EXAM PARAMETERS: NUMBER OF VIEWS: One view. TECHNIQUE: Single frontal radiographic view of the chest acquired. RADIATION DOSE: NA LIMITATIONS: None. FINDINGS: LUNGS AND PLEURA: No opacities, masses or pneumothorax. No pleural effusion. MEDIASTINUM AND HILAR STRUCTURES: No masses. Contour normal. HEART AND VASCULAR STRUCTURES: Heart normal in size. Normal vasculature. BONES: No acute findings. HARDWARE: Right shoulder prosthesis. OTHER: No other significant finding. IMPRESSION: NO ACUTE RADIOGRAPHIC FINDING IN THE CHEST. TECHNICAL DOCUMENTATION: JOB ID: [id number] [employer]- All Rights Reserved Reading location - IP/workstation name: [email or web address]
[2019-01-23 17:47] LABS: VENOUS BLOOD BASE EXCESS 2.1 mmol/L; VENOUS BLOOD HCO3 24.9 mmol/L (20-32); VENOUS BLOOD PH 7.5 (7.30-7.42)
[2019-01-23 17:49] LABS: ABSOLUTE EOSINOPHILS # (AUTO) 0.1 10^3/uL (0.0-0.6); ABSOLUTE LYMPHOCYTES (AUTO) 0.9 10^3/uL (0.5-4.7); ABSOLUTE MONOCYTES (AUTO) 0.8 10^3/uL (0.1-1.4); ABSOLUTE NEUT (AUTO) 5.9 10^3/uL (1.7-8.2); BASOPHILS % (AUTO) 0.5 % (0-2); EOSINOPHILS % (AUTO) 1.8 % (0-6); HEMATOCRIT 36.1 % (36.0-47.0); HEMOGLOBIN 12.7 g/dL (12.0-15.5); LYMPHOCYTES % (AUTO) 11.8 % (13-45); MEAN CORPUSCULAR HEMOGLOBIN 34.1 pg (27.0-33.4); MEAN CORPUSCULAR HGB CONC 35.2 g/dL (32.0-36.0); MEAN CORPUSCULAR VOLUME 97 fl (80-97); MONOCYTES % (AUTO) 10.7 % (3-13); PLATELET COUNT 175 10^3/uL (150-450); PROTHROMBIN TIME 20.2 SEC (11.4-15.4); RED BLOOD COUNT 3.72 10^6/uL (3.72-5.28); RED CELL DISTRIBUTION WIDTH 12.8 % (11.5-14.0); SEGMENTED NEUTROPHILS % (AUTO) 75.2 % (42-78); TOTAL CELLS COUNTED % (AUTO) 100 %; WHITE BLOOD COUNT 7.8 10^3/uL (4.0-10.5)
[2019-01-23 18:03] LABS: ALBUMIN 4.5 g/dL (3.5-5.0); ALKALINE PHOSPHATASE 65 U/L (38-126); ANION GAP 14 (5-19); ASPARTATE AMINO TRANSFERASE 28 U/L (14-36); BILIRUBIN,DIRECT 0.2 mg/dL (0.0-0.4); BILIRUBIN,TOTAL 0.7 mg/dL (0.2-1.3); BLOOD UREA NITROGEN 36 mg/dL (7-20); CALCIUM 9.6 mg/dL (8.4-10.2); CARBON DIOXIDE 23 mmol/L (22-30); CHLORIDE 105 mmol/L (98-107); GLUCOSE 135 mg/dL (75-110); POTASSIUM 3.9 mmol/L (3.6-5.0); TOTAL PROTEIN 7.1 g/dL (6.3-8.2)
[2019-01-23] MEDS ORDERED: LORAZEPAM INJ 2 MG/1 ML VIAL IV ONE (18:28)
--- NOTE | 2019-01-23 18:57 | RADIOLOGY REPORT (SQ) ---
EXAM DESCRIPTION: CT CHEST WITHOUT COMPLETED DATE/TIME: 01/23/2019 6:40 pm REASON FOR STUDY: wheezing COMPARISON: None. TECHNIQUE: CT scan performed of the chest without intravenous contrast. Images reviewed with lung, soft tissue and bone windows. Reconstructed coronal and sagittal MPR images reviewed. All images st ored on PACS. All CT scanners at this facility use dose modulation, iterative reconstruction, and/or weight based d osing when appropriate to reduce radiation dose to as low as reasonably achievable (ALARA). [facility]: Dose Right [facility]: CareDose [facility]: Dose Right [facility]: Teradose 4D [facility]: [employer] RADIATION DOSE: CT Rad equipment meets quality standard of care and radiation dose reduction techniq ues were employed. CTDIvol: 12.5 mGy. DLP: 471 mGy-cm. mGy. LIMITATIONS: No technical limitations. FINDINGS: LUNGS AND PLEURA: No masses, infiltrates, or pneumothorax. No pleural effusions or pleura l calcifications. HILAR AND MEDIASTINAL STRUCTURES: No identified masses or abnormal nodes. No obvious aneurysm. HEART AND VASCULAR STRUCTURES: No aneurysm. No pericardial effusion. UPPER ABDOMEN: No significant findings. Limited exam. THYROID AND OTHER SOFT TISSUES: No masses. No adenopathy. BONES: No significant finding. HARDWARE: There is a constricting device around the gastroesophageal junction. OTHER: No other significant findings. IMPRESSION: NO SIGNIFICANT FINDING ON NON-CONTRASTED CHEST CT. TECHNICAL DOCUMENTATION: JOB ID: [id number] Quality ID # [id number]: Final reports with documentation of one or more dose reduction techniques (e.g., Au tomated exposure control, adjustment of the mA and/or kV according to patient size, use of iterative reconstruction technique) 2010 [employer]- All Rights Reserved Reading location - IP/workstation name: [email or web address]
[2019-01-23] MEDS ORDERED: NORMAL SALINE 1000 ML 1,000 ML IV ONE ×2 (19:22→21:32)
--- NOTE | 2019-01-23 20:23 | ER Document Report ---
ED General - General Chief Complaint: Shortness Of Breath Stated Complaint: RESPIRATORY DISTRESS Time Seen by Provider: 01/23/19 17:46 Primary Care Provider: INOCENTE BONILLA PA-C [Primary Care Provider] - Follow up as needed Mode of Arrival: Ambulatory Information source: Patient, Relative TRAVEL OUTSIDE OF THE [place] IN LAST 30 DAYS: No - HPI Notes: Patient presents with shortness of breath. She states is been going on for approximately 2 days. It is worse with exertion and better with rest. She also states she has had a dry cough. She also states that she has felt anxious. No significant chest pain. She has had some malaise weakness and body aches. The body aches do radiate throughout her body. Her shortness of breath is moderate in intensity. She has had no fevers or rashes. - Related Data Allergies/Adverse Reactions: No Known Allergies Allergy (Verified 01/23/19 17:30) Past Medical History - General Information source: Patient - Social History Smoking Status: Former Smoker Frequency of alcohol use: None Drug Abuse: None Family History: Reviewed & Not Pertinent Patient has suicidal ideation: No Patient has homicidal ideation: No - Past Medical History Cardiac Medical History: Reports: Hx Hypercholesterolemia, Hx Hypertension Pulmonary Medical History: Reports: Hx Asthma Renal/ Medical History: Denies: Hx Peritoneal Dialysis Past Surgical History: Reports: Hx Abdominal Surgery - lap band, Hx Orthopedic Surgery - aditi knee replacement, right shoulder, repair of femur - Immunizations Hx Pneumococcal Vaccination: 11/29/18 Review of Systems - Review of Systems Constitutional: Chills, Malaise, Weakness Respiratory: Cough, Short of breath, Wheezing Gastrointestinal: denies: Abdominal pain, Diarrhea, Vomiting -: Yes All other systems reviewed and negative Physical Exam - Vital signs Vitals: Pulse Ox 100 01/23/19 17:30 Interpretation: Normal - General General appearance: Appears well, Alert - HEENT Head: Normocephalic, Atraumatic Eyes: Normal Pupils: PERRL - Respiratory Respiratory status: Tachypnea - Patient is tachypneic upon presentation. June smart it seems this is possibly due to anxiety. After Ativan patient is significantly less tachypneic. Chest status: Nontender Breath sounds: Rhonchi - Mild and diffuse Chest palpation: Normal - Cardiovascular Rhythm: Regular Heart sounds: Normal auscultation Murmur: No - Abdominal Inspection: Normal Distension: No distension Bowel sounds: Normal Tenderness: Nontender Organomegaly: No organomegaly - Back Back: Normal, Nontender - Extremities General upper extremity: Normal inspection, Nontender, Normal color, Normal ROM, Normal temperature General lower extremity: Normal inspection, Nontender, Normal color, Normal ROM, Normal temperature, Normal weight bearing. No: Sanchez's sign - Neurological Neuro grossly intact: Yes Cognition: Normal Orientation: AAOx4 Darly Coma Scale Eye Opening: Spontaneous Riley Coma Scale Verbal: Oriented Daryl Coma Scale Motor: Obeys Commands Daryl Coma Scale Total: 15 Speech: Normal Motor strength normal: LUE, RUE, LLE, RLE Sensory: Normal - Psychological Associated symptoms: Normal affect, Normal mood - Skin Skin Temperature: Warm Skin Moisture: Dry Skin Color: Normal Course - Re-evaluation Re-evalutation: 01/23/19 20:22 Patient presents with shortness of breath. Patient has a BNP that is the lowest it has ever been. If anything patient looks slightly dry and I am going to give her some fluids. She has no evidence of pulmonary embolism. No evidence of pneumonia. She does appear to possibly have an upper respiratory infection. I do believe there is also a component of anxiety as she has significant relief with Ativan. She is currently resting comfortably in the room eating and watching TV. Patient's initial lactate was elevated however patient does not appear septic as she has normal blood pressure and heart rate and no obvious systemic infection. I am going to repeat lactate. - Vital Signs Vital signs: Temp Pulse Resp BP Pulse Ox 97.9 F 20 99/60 L 99 01/23/19 20:59 01/23/19 20:53 01/23/19 20:53 01/23/19 20:53 - Laboratory Result Diagrams: 01/23/19 17:19 01/23/19 17:19 Laboratory results interpreted by me: 01/23/19 01/23/19 01/23/19 17:19 17:19 17:19 MCH 34.1 H Lymph % (Auto) 11.8 L PT 20.2 H VBG pH VBG pCO2 BUN 36 H Creatinine 2.16 H Est GFR ( Amer) 27 L Est GFR (MDRD) Non-Af 22 L Glucose 135 H Lactic Acid (Sepsis) NT-Pro-B Natriuret Pep 01/23/19 01/23/19 01/23/19 17:19 17:19 17:19 MCH Lymph % (Auto) PT VBG pH 7.50 H VBG pCO2 33.0 L BUN Creatinine Est GFR ( Amer) Est GFR (MDRD) Non-Af Glucose Lactic Acid (Sepsis) 2.5 H NT-Pro-B Natriuret Pep 1160 H 01/23/19 19:47 MCH Lymph % (Auto) PT VBG pH VBG pCO2 BUN Creatinine Est GFR ( Amer) Est GFR (MDRD) Non-Af Glucose Lactic Acid (Sepsis) 2.2 H NT-Pro-B Natriuret Pep - Diagnostic Test Radiology reviewed: Image reviewed, Reports reviewed - EKG Interpretation by Ks EKG shows normal: Sinus rhythm Rate: Normal - 89 Rhythm: Arrthymia - ventric bigem, A.Fib, PVC's [place]/QRS: Left axis deviation Discharge - Discharge Clinical Impression: Acute asthma exacerbation Qualifiers: Asthma severity: moderate Asthma persistence: persistent Qualified Code(s): J45.41 - Moderate persistent asthma with (acute) exacerbation Condition: Fair Disposition: ADMITTED INPATIENT Admitting Provider: Mikie (Hospitalist) Unit Admitted: Telemetry Referrals: INOCENTE BONILLA PA-C [Primary Care Provider] - Follow up as needed
[2019-01-23] MEDS ORDERED: AZITHROMYCIN 250 MG TABLET PO ONE (21:06)
[2019-01-23] MEDS ORDERED: METHYLPREDNISOLONE INJ 125 MG/2 ML SDV IV ONE (21:06)
[2019-01-23] MEDS ORDERED: CEFTRIAXONE 2 GM/D5W RTU 2 GM/50 ML RTUPB IV ONE (21:06)
[2019-01-23] MEDS ORDERED: ALBUTEROL SULFATE 0.083% NEB 2.5 MG/3 ML AMPUL NEB ONE (21:07)
[2019-01-23] MEDS: IPRATROPIUM BROMIDE 0.02% NEB 0.5 MG/2.5 ML AMPUL NEB PRN ×2 (21:34→22:06)
[2019-01-23] MEDS ORDERED: HYDRALAZINE HCL INJ/PF 20 MG/1 ML SDV IV PRN (21:59)
[2019-01-23] MEDS ORDERED: IPRATROPIUM/ALBUTEROL 0.5-2.5 MG/3 ML AMPUL NEB PRN (21:59)
[2019-01-23] MEDS ORDERED: PREDNISONE 20 MG TABLET PO ONE (22:45)
[2019-01-23] MEDS: CHLORPHENIRAMINE MALEATE 4 MG TABLET PO SCH (23:37)
[2019-01-23] MEDS ORDERED: FLUTICASONE NASAL SPRAY 50 MCG/SPRY 120 SPRAY/16 GM ONE (23:37)
[2019-01-23] MEDS: FLUTICASONE NASAL SPRAY 50 MCG/SPRY 120 SPRAY/16 GM NASL SCH (23:43)
--- NOTE | 2019-01-23 23:44 | EKG REPORT ---
SEVERITY:- ABNORMAL ECG - SINUS RHYTHM VENTRICULAR BIGEMINY BORDERLINE LEFT AXIS DEVIATION REPOL ABNRM SUGGESTS ISCHEMIA, ANT-LAT LEADS : Confirmed by: Onel Cunningham 23-Jan-2019 23:43:53
[2019-01-24] MEDS: DILTIAZEM HCL 60 MG TABLET PO SCH ×4 (00:05→18:23)
[2019-01-24 00:28] LABS: APPEARANCE,URINE SLIGHTLY-CLOUDY; BILIRUBIN,URINE NEGATIVE (NEGATIVE); COLOR,URINE YELLOW; GLUCOSE, URINE 50 mg/dL (NEGATIVE); KETONES,URINE NEGATIVE (NEGATIVE); LEUKOCYTE ESTERASE,URINE SMALL (NEGATIVE); NITRITE,URINE NEGATIVE (NEGATIVE); PROTEIN,URINE NEGATIVE (NEGATIVE); URINE SPECIFIC GRAVITY 1.012; UROBILINOGEN,URINE NEGATIVE mg/dL (<2.0)
[2019-01-24] MEDS: LEVALBUTEROL HCL NEB 1.25 MG/3 ML AMPUL NEB SCH ×5 (02:07→19:48)
[2019-01-24] MEDS: IPRATROPIUM BROMIDE 0.02% NEB 0.5 MG/2.5 ML AMPUL NEB SCH ×5 (02:08→19:48)
[2019-01-24 04:03] LABS: ABSOLUTE LYMPHOCYTES (AUTO) 0.3 10^3/uL (0.5-4.7); ABSOLUTE MONOCYTES (AUTO) 0.1 10^3/uL (0.1-1.4); ABSOLUTE NEUT (AUTO) 4.4 10^3/uL (1.7-8.2); BASOPHILS % (AUTO) 0.1 % (0-2); HEMATOCRIT 34.1 % (36.0-47.0); HEMOGLOBIN 11.8 g/dL (12.0-15.5); LYMPHOCYTES % (AUTO) 5.8 % (13-45); MEAN CORPUSCULAR HEMOGLOBIN 34.1 pg (27.0-33.4); MEAN CORPUSCULAR HGB CONC 34.5 g/dL (32.0-36.0); MEAN CORPUSCULAR VOLUME 99 fl (80-97); MONOCYTES % (AUTO) 1.3 % (3-13); PLATELET COUNT 151 10^3/uL (150-450); RED BLOOD COUNT 3.45 10^6/uL (3.72-5.28); RED CELL DISTRIBUTION WIDTH 12.8 % (11.5-14.0); SEGMENTED NEUTROPHILS % (AUTO) 92.8 % (42-78); TOTAL CELLS COUNTED % (AUTO) 100 %; WHITE BLOOD COUNT 4.8 10^3/uL (4.0-10.5)
[2019-01-24] MEDS: HYDROCODONE BIT/HOMATROPINE 5-1.5 MG TABLET PO PRN ×3 (04:05→21:54)
[2019-01-24] MEDS: CHLORPHENIRAMINE MALEATE 4 MG TABLET PO SCH ×4 (04:12→18:26)
[2019-01-24 04:26] LABS: ANION GAP 17 (5-19); BLOOD UREA NITROGEN 37 mg/dL (7-20); CALCIUM 8.8 mg/dL (8.4-10.2); CARBON DIOXIDE 17 mmol/L (22-30); CHLORIDE 107 mmol/L (98-107); GLUCOSE 355 mg/dL (75-110); POTASSIUM 4.1 mmol/L (3.6-5.0)
[2019-01-24] MEDS ORDERED: HEPARIN SOD (PORCINE) 1,000 UNIT/ML 10 ML VIAL IV ONE (05:07)
[2019-01-24] MEDS ORDERED: HEPARIN SODIUM,PORCINE/D5W 25,000 UNIT/250 ML RTUINJ IV PRN (05:07)
--- NOTE | 2019-01-24 05:07 | PDOC H&P ---
History of Present Illness Admission Date/PCP: 01/23/19 21:36 INOCENTE BONILLA PA-C Patient complains of: Cough and shortness of breath History of Present Illness: SOTO YOUNG is a 78 year old female with a past medical history of COPD, atrial fibrillation congestive heart failure, ureteral stenting and tobacco. She presents with 3 days of shortness of breath, nonproductive cough and diffuse body aches. In the emergency room she is found to be sepsis with unclear source, lactic acidosis, tachypneic and hypotensive. She started on IV fluids, empiric antibiotics and referred to the hospitalist for admission. She only complains of upper respiratory symptoms, denies recent antibiotic use, dysuria, abdominal pain or diarrhea. She admits medication noncompliance and does not follow-up with doctors regularly. Past Medical History Cardiac Medical History: Reports: Atrial Fibrillation, Congestive Heart Failure, Coronary Artery Disease, Hyperlipidema, Hypertension Pulmonary Medical History: Reports: Asthma, Bronchitis, Chronic Obstructive Pulmonary Disease (COPD), Respiratory Failure Renal/ Medical History: Reports: Chronic Kidney Disease, Nephrolithiasis Psychiatric Medical History: Denies: Depression Past Surgical History Past Surgical History: Reports: Orthopedic Surgery - aditi knee replacement, right shoulder, repair of femur Social History Information Source: Patient Smoking Status: Former Smoker Frequency of Alcohol Use: Rare Hx Recreational Drug Use: No Drugs: None Hx Prescription Drug Abuse: No - Advance Directive Resuscitation Status: Do Not Resuscitate Family History Family History: Hypertension Parental Family History Reviewed: Yes Children Family History Reviewed: Yes Sibling(s) Family History Reviewed.: Yes Medication/Allergy Home Medications: Acetaminophen [Tylenol 325 mg Tablet] 325 mg PO Q4H PRN 06/21/18 Albuterol Sulfate [Ventolin 0.083% Neb 2.5 mg/3 mL Ampul] 1 vial NEB Q2H PRN 06/21/18 Budesonide/Formoterol Fumarate [Symbicort HFA 80-4.5 mcg Inhaler 6.9 gm] 2 puff IH BID 06/21/18 Ferrous Sulfate [Iron] 325 mg PO BID 06/21/18 Folic Acid [Folvite 1 mg Tablet] 1 mg PO DAILY 06/21/18 Insulin Aspart [Novolog Flexpen] 0 unit SUBCUT .SLD SCALE 06/21/18 Ipratropium/Albuterol Sulfate [Duoneb 3 ml Ampul] 3 ml NEB Q6H 06/21/18 Melatonin/Pyridoxine HCl (B6) [Melatonin 1 mg Tablet] 1 each PO QHS PRN 06/21/18 Pravastatin Sodium 40 mg PO QHS 06/21/18 Tiotropium [place] [Spiriva Handihaler 5 Cap/Kit (18 Mcg/Cap)] 1 cap IH DAILY 06/21/18 Diltiazem HCl [Cardizem Cd 120 mg Capsule] 120 mg PO DAILY #30 cap.sr.24h 06/27/18 Docusate Sodium [Colace 100 mg Capsule] 100 mg PO BID capsule 06/27/18 Furosemide [Lasix 20 mg Tablet] 20 mg PO DAILY@1400 #30 tablet 06/27/18 Furosemide [Lasix 40 mg Tablet] 40 mg PO DAILY@0800 #30 tablet 06/27/18 Lisinopril [Prinivil 5 mg Tablet] 2.5 mg PO Q12A #60 tablet 06/27/18 Metoprolol Tartrate [Lopressor 25 mg Tablet] 25 mg PO Q12 #60 tablet 06/27/18 Spironolactone [Aldactone 25 mg Tablet] 25 mg PO DAILY #30 tablet 06/27/18 Allergies/Adverse Reactions: No Known Allergies Allergy (Verified 01/23/19 17:30) Review of Systems Constitutional: ABSENT: chills, fever(s), headache(s), weight gain, weight loss Eyes: ABSENT: visual disturbances Ears: ABSENT: hearing changes Cardiovascular: ABSENT: chest pain, dyspnea on exertion, edema, orthropnea, palpitations Respiratory: ABSENT: cough, hemoptysis Gastrointestinal: ABSENT: abdominal pain, constipation, diarrhea, hematemesis, hematochezia, nausea, vomiting Genitourinary: ABSENT: dysuria, hematuria Musculoskeletal: ABSENT: joint swelling Integumentary: ABSENT: rash, wounds Neurological: ABSENT: abnormal gait, abnormal speech, confusion, dizziness, focal weakness, syncope Psychiatric: ABSENT: anxiety, depression, homidical ideation, suicidal ideation Endocrine: ABSENT: cold intolerance, heat intolerance, polydipsia, polyuria Hematologic/Lymphatic: ABSENT: easy bleeding, easy bruising Physical Exam Vital Signs: Temp Pulse Resp BP Pulse Ox 98.4 F 88 16 104/51 L 97 01/24/19 03:05 01/24/19 03:05 01/24/19 03:05 01/24/19 03:05 01/24/19 03:05 Intake & Output 01/22/19 01/23/19 01/24/19 11:59 11:59 11:59 Intake Total 2049 Balance 2049 Weight 82.2 kg General appearance: PRESENT: cooperative, disheveled, mild distress, thin, well- developed, well-nourished Head exam: PRESENT: atraumatic, normocephalic Eye exam: PRESENT: conjunctiva pink, EOMI, PERRLA. ABSENT: scleral icterus Ear exam: PRESENT: normal external ear exam Mouth exam: PRESENT: dry mucosa, tongue midline Neck exam: ABSENT: carotid bruit, JVD, lymphadenopathy, thyromegaly Respiratory exam: PRESENT: accessory muscle use, crackles, prolonged expiratory phas, retraction, rhonchi, symmetrical, tachypnea. ABSENT: rales, wheezes Cardiovascular exam: PRESENT: RRR. ABSENT: diastolic murmur, rubs, systolic murmur Pulses: PRESENT: normal dorsalis pedis pul Vascular exam: PRESENT: normal capillary refill GI/Abdominal exam: PRESENT: normal bowel sounds, soft. ABSENT: distended, guarding, mass, organolmegaly, rebound, tenderness Rectal exam: PRESENT: deferred Extremities exam: PRESENT: full ROM. ABSENT: calf tenderness, clubbing, pedal edema Neurological exam: PRESENT: alert, awake, oriented to person, oriented to place, oriented to time, oriented to situation, CN II-XII grossly intact. ABSENT: motor sensory deficit Psychiatric exam: PRESENT: appropriate affect, normal mood. ABSENT: homicidal ideation, suicidal ideation Skin exam: PRESENT: dry, intact, warm. ABSENT: cyanosis, rash Results Laboratory Results: 01/24/19 03:52 01/24/19 03:52 01/23/19 01/23/19 01/23/19 17:19 17:19 17:19 WBC 7.8 RBC 3.72 Hgb 12.7 Hct 36.1 MCV 97 MCH 34.1 H MCHC 35.2 RDW 12.8 Plt Count 175 Seg Neutrophils % 75.2 VBG pH 7.50 H VBG pCO2 33.0 L VBG HCO3 24.9 VBG Base Excess 2.1 Sodium 141.7 Potassium 3.9 Chloride 105 Carbon Dioxide 23 Anion Gap 14 BUN 36 H Creatinine 2.16 H Est GFR ( Amer) 27 L Glucose 135 H Lactic Acid Calcium 9.6 Total Bilirubin 0.7 AST 28 Alkaline Phosphatase 65 Total Protein 7.1 Albumin 4.5 Urine Color Urine Appearance Urine pH Ur Specific [place] Urine Protein Urine Glucose (UA) Urine Ketones Urine Blood Urine Nitrite Ur Leukocyte Esterase Urine WBC (Auto) Urine RBC (Auto) 01/23/19 01/24/19 01/24/19 21:00 00:10 03:52 WBC 4.8 RBC 3.45 L Hgb 11.8 L Hct 34.1 L MCV 99 H MCH 34.1 H MCHC 34.5 RDW 12.8 Plt Count 151 Seg Neutrophils % 92.8 H VBG pH VBG pCO2 VBG HCO3 VBG Base Excess Sodium Potassium Chloride Carbon Dioxide Anion Gap BUN Creatinine Est GFR ( Amer) Glucose Lactic Acid Cancelled Calcium Total Bilirubin AST Alkaline Phosphatase Total Protein Albumin Urine Color YELLOW Urine Appearance SLIGHTLY-CLOUDY Urine pH 5.0 Ur Specific [place] 1.012 Urine Protein NEGATIVE Urine Glucose (UA) 50 H Urine Ketones NEGATIVE Urine Blood MODERATE H Urine Nitrite NEGATIVE Ur Leukocyte Esterase SMALL H Urine WBC (Auto) 0 Urine RBC (Auto) 1 01/24/19 03:52 WBC RBC Hgb Hct MCV MCH MCHC RDW Plt Count Seg Neutrophils % VBG pH VBG pCO2 VBG HCO3 VBG Base Excess Sodium 141.1 Potassium 4.1 Chloride 107 Carbon Dioxide 17 L Anion Gap 17 BUN 37 H Creatinine 2.08 H Est GFR ( Amer) 28 L Glucose 355 H Lactic Acid Calcium 8.8 Total Bilirubin AST Alkaline Phosphatase Total Protein Albumin Urine Color Urine Appearance Urine pH Ur Specific [place] Urine Protein Urine Glucose (UA) Urine Ketones Urine Blood Urine Nitrite Ur Leukocyte Esterase Urine WBC (Auto) Urine RBC (Auto) 01/23/19 01/23/19 17:19 17:19 Troponin I < 0.012 NT-Pro-B Natriuret Pep 1160 H Impressions: Chest X-Ray 01/23/19 17:05 IMPRESSION: NO ACUTE RADIOGRAPHIC FINDING IN THE CHEST. Chest CT 01/23/19 18:28 IMPRESSION: NO SIGNIFICANT FINDING ON NON-CONTRASTED CHEST CT. Assessment and Plan - Diagnosis (1) Shortness of breath Is this a current diagnosis for this admission?: Yes Plan: Most likely secondary to pneumonia however no infiltrate visualized, follow-up VQ scan, heparin ordered. (2) Pneumonia Is this a current diagnosis for this admission?: Yes Plan: Pneumonia care set, empiric antibiotics, incentive spirometry, flutter valve, Hycodan and Robitussin as needed. Follow-up CBC and blood culture (3) Atrial fibrillation with RVR Is this a current diagnosis for this admission?: Yes Plan: Cardizem for rate control (4) Chronic kidney disease (CKD) stage G3b/A3, moderately decreased glomerular filtration rate (GFR) between 30-44 mL/min/1.73 square meter and albuminuria creatinine ratio greater than 300 mg/g Is this a current diagnosis for this admission?: Yes Plan: Avoid nephrotoxic meds and doses, reduce Eliquis follow-up chemistry (5) Constipation Is this a current diagnosis for this admission?: Yes Plan: Lactulose and bowel regiment - Time Time Spent with patient: 35 or more minutes - Inpatient Certification Medical Necessity: Need Close Monitoring Due to Risk of Patient Decompensation
[2019-01-24 05:39] LABS: ABSOLUTE LYMPHOCYTES (AUTO) 0.3 10^3/uL (0.5-4.7); ABSOLUTE MONOCYTES (AUTO) 0.1 10^3/uL (0.1-1.4); ABSOLUTE NEUT (AUTO) 4.1 10^3/uL (1.7-8.2); BASOPHILS % (AUTO) 0.1 % (0-2); HEMATOCRIT 30.6 % (36.0-47.0); HEMOGLOBIN 10.6 g/dL (12.0-15.5); LYMPHOCYTES % (AUTO) 5.8 % (13-45); MEAN CORPUSCULAR HEMOGLOBIN 34.4 pg (27.0-33.4); MEAN CORPUSCULAR HGB CONC 34.7 g/dL (32.0-36.0); MEAN CORPUSCULAR VOLUME 99 fl (80-97); MONOCYTES % (AUTO) 1.5 % (3-13); PLATELET COUNT 133 10^3/uL (150-450); RED BLOOD COUNT 3.09 10^6/uL (3.72-5.28); RED CELL DISTRIBUTION WIDTH 12.9 % (11.5-14.0); SEGMENTED NEUTROPHILS % (AUTO) 92.6 % (42-78); TOTAL CELLS COUNTED % (AUTO) 100 %; WHITE BLOOD COUNT 4.5 10^3/uL (4.0-10.5)
[2019-01-24 05:45] LABS: INTERNATIONAL RATION (INR) 1.52; PROTHROMBIN TIME 18.5 SEC (11.4-15.4)
[2019-01-24 05:46] LABS: PARTIAL THROMBOPLASTIN TIME 34.2 SEC (23.5-35.8)
[2019-01-24] MEDS ORDERED: HEPARIN SOD (PORCINE) 1,000 UNIT/ML 10 ML VIAL IV PRN (08:08)
--- NOTE | 2019-01-24 08:40 | RADIOLOGY REPORT (SQ) ---
EXAM DESCRIPTION: NM LUNG VENT/PERF SCAN COMPLETED DATE/TIME: 01/24/2019 8:03 am REASON FOR STUDY: SOB COMPARISON: Chest radiograph, 01/23/2019 RADIONUCLIDE AND DOSE: 5.0 millicuries TC-99m MAA Intravenous 30.0 millicuries TC-99m DTPA Inhaled aerosol TECHNIQUE: Eight views of the lungs acquired post ventilation of DTPA aerosol. Eight matching views of the lungs acquired following injection of MAA. LIMITATIONS: None. FINDINGS: VENTILATION: Heterogeneous radiotracer distribution due to bronchial clumping and obstruct dipti small airway disease. No significant areas of photopenia. PERFUSION: Perfusion images with normal homogenous activity and no wedge-shaped or segmental defects. No ventilation-perfusion mismatches. OTHER: Cardiomegaly. IMPRESSION: 1. Heterogeneous radiotracer distribution on ventilation imaging due to bronchial clumpi ng and/or obstructive small airway disease. There is no perfusion defect. Very low probability exam ination for pulmonary embolism by modified PIOPED criteria (PE absent). 2. Cardiomegaly. TECHNICAL DOCUMENTATION: JOB ID: [id number] [employer]- All Rights Reserved Reading location - IP/workstation name: [email or web address]
[2019-01-24] MEDS: HYDROCORTISONE SOD SUCCINATE INJ/PF 100 MG/2 ML SDV IV SCH ×3 (08:59→21:55)
[2019-01-24] MEDS ORDERED: NORMAL SALINE 1000 ML 1,000 ML IV PRN (09:36)
[2019-01-24] MEDS ORDERED: PREDNISONE 20 MG TABLET PO SCH (10:00)
[2019-01-24 10:23] LABS: A TYPE INFLUENZA AG NEGATIVE (NEGATIVE); B INFLUENZA AG NEGATIVE (NEGATIVE)
--- NOTE | 2019-01-24 11:27 | PDOC PROGRESS REPORT ---
Subjective Progress Note for:: 01/24/19 Subjective:: Patient is feeling very short of breath. She states if it was not for breathing she would feel fine otherwise. Her lactic acid was still elevated and who are giving more fluids. Reason For Visit: ACUTE AND CHRONIC BROCHITIS COPD EXACERBATION Physical Exam Vital Signs: Temp Pulse Resp BP Pulse Ox 98.2 F 96 16 119/60 97 01/24/19 07:09 01/24/19 08:45 01/24/19 08:45 01/24/19 07:09 01/24/19 08:45 Intake & Output 01/23/19 01/24/19 01/25/19 06:59 06:59 06:59 Intake Total 2049 Output Total 75 Balance 1975 Weight 82.2 kg General appearance: PRESENT: cooperative, mild distress, well-developed Head exam: PRESENT: atraumatic, normocephalic Ear exam: PRESENT: normal external ear exam. ABSENT: bleeding, drainage Mouth exam: PRESENT: moist, tongue midline Respiratory exam: PRESENT: symmetrical, wheezes - Diffuse bilateral expiratory wheezes. ABSENT: accessory muscle use, rales, rhonchi, tachypnea Cardiovascular exam: PRESENT: RRR, +S1, +S2 GI/Abdominal exam: PRESENT: normal bowel sounds, soft. ABSENT: distended, tenderness Rectal exam: PRESENT: deferred Extremities exam: ABSENT: joint swelling, pedal edema Musculoskeletal exam: PRESENT: ambulatory, normal inspection Neurological exam: PRESENT: alert, awake, oriented to person, oriented to place, oriented to time, oriented to situation, CN II-XII grossly intact Psychiatric exam: PRESENT: appropriate affect. ABSENT: agitated, anxious Focused psych exam: ABSENT: delusional, restlessness Skin exam: PRESENT: dry, normal color, warm. ABSENT: rash Results Laboratory Results: 01/24/19 05:24 01/24/19 03:52 01/23/19 01/23/19 01/23/19 17:19 17: 17:19 WBC 7.8 RBC 3.72 Hgb 12.7 Hct 36.1 MCV 97 MCH 34.1 H MCHC 35.2 RDW 12.8 Plt Count 175 Seg Neutrophils % 75.2 VBG pH 7.50 H VBG pCO2 33.0 L VBG HCO3 24.9 VBG Base Excess 2.1 Sodium 141.7 Potassium 3.9 Chloride 105 Carbon Dioxide 23 Anion Gap 14 BUN 36 H Creatinine 2.16 H Est GFR ( Amer) 27 L Glucose 135 H Lactic Acid Calcium 9.6 Total Bilirubin 0.7 AST 28 Alkaline Phosphatase 65 Total Protein 7.1 Albumin 4.5 Urine Color Urine Appearance Urine pH Ur Specific [place] Urine Protein Urine Glucose (UA) Urine Ketones Urine Blood Urine Nitrite Ur Leukocyte Esterase Urine WBC (Auto) Urine RBC (Auto) 01/23/19 01/24/19 01/24/19 21:00 00:10 03:52 WBC 4.8 RBC 3.45 L Hgb 11.8 L Hct 34.1 L MCV 99 H MCH 34.1 H MCHC 34.5 RDW 12.8 Plt Count 151 Seg Neutrophils % 92.8 H VBG pH VBG pCO2 VBG HCO3 VBG Base Excess Sodium Potassium Chloride Carbon Dioxide Anion Gap BUN Creatinine Est GFR ( Amer) Glucose Lactic Acid Cancelled Calcium Total Bilirubin AST Alkaline Phosphatase Total Protein Albumin Urine Color YELLOW Urine Appearance SLIGHTLY-CLOUDY Urine pH 5.0 Ur Specific [place] 1.012 Urine Protein NEGATIVE Urine Glucose (UA) 50 H Urine Ketones NEGATIVE Urine Blood MODERATE H Urine Nitrite NEGATIVE Ur Leukocyte Esterase SMALL H Urine WBC (Auto) 0 Urine RBC (Auto) 1 01/24/19 01/24/19 03:52 05:24 WBC 4.5 RBC 3.09 L Hgb 10.6 L Hct 30.6 L MCV 99 H MCH 34.4 H MCHC 34.7 RDW 12.9 Plt Count 133 L Seg Neutrophils % 92.6 H VBG pH VBG pCO2 VBG HCO3 VBG Base Excess Sodium 141.1 Potassium 4.1 Chloride 107 Carbon Dioxide 17 L Anion Gap 17 BUN 37 H Creatinine 2.08 H Est GFR ( Amer) 28 L Glucose 355 H Lactic Acid Calcium 8.8 Total Bilirubin AST Alkaline Phosphatase Total Protein Albumin Urine Color Urine Appearance Urine pH Ur Specific [place] Urine Protein Urine Glucose (UA) Urine Ketones Urine Blood Urine Nitrite Ur Leukocyte Esterase Urine WBC (Auto) Urine RBC (Auto) 01/23/19 01/23/19 17:19 17:19 Troponin I < 0.012 NT-Pro-B Natriuret Pep 1160 H Impressions: Chest X-Ray 01/23/19 17:05 IMPRESSION: NO ACUTE RADIOGRAPHIC FINDING IN THE CHEST. Chest CT 01/23/19 18:28 IMPRESSION: NO SIGNIFICANT FINDING ON NON-CONTRASTED CHEST CT. Lung Scan-VQ NM 01/24/19 00:00 IMPRESSION: 1. Heterogeneous radiotracer distribution on ventilation imaging due to bronchial clumping and/or obstructive small airway disease. There is no perfusion defect. Very low probability examination for pulmonary embolism by modified PIOPED criteria (PE absent). 2. Cardiomegaly. Assessment and Plan - Diagnosis (1) Shortness of breath Is this a current diagnosis for this admission?: Yes Plan: Most likely secondary to pneumonia however no infiltrate visualized, follow-up VQ scan, heparin ordered. 01/24/2019-breathing is improved however the patient still has expiratory wheezes. (2) Acute asthma exacerbation Qualifiers: Asthma severity: severe Asthma persistence: persistent Qualified Code(s): J45.51 - Severe persistent asthma with (acute) exacerbation Is this a current diagnosis for this admission?: Yes Plan: 01/24/2019-I did spend approximately 30 minutes on the phone with the patient's granddaughter. She had multiple questions. She reports that the patient's asthma can have severe exacerbations. I told her that the patient is certainly doing better and that we have increased the number of nebulizer treatments. The patient still has expiratory wheezes but with the change in her treatments this should improve. (3) Pneumonia Qualifiers: Pneumonia type: due to unspecified organism Lung location: unspecified part of lung Is this a current diagnosis for this admission?: Yes Plan: 01/24/2019-the patient does not have an obvious infiltrate on x-ray. She does not have an elevated white blood cell count. I will reassess tomorrow and if I am not convinced that there is pneumonia I will discontinue all antibiotics. (4) Atrial fibrillation with RVR Is this a current diagnosis for this admission?: Yes (5) Chronic kidney disease (CKD) stage G3b/A3, moderately decreased glomerular filtration rate (GFR) between 30-44 mL/min/1.73 square meter and albuminuria creatinine ratio greater than 300 mg/g Is this a current diagnosis for this admission?: Yes Plan: 01/24/2019-the patient has chronic kidney failure. The patient told her granddaughter that her kidneys were at 37%. In fact she was reporting a BUN of 37. I will recheck her renal function tomorrow. The patient may in fact have chronic stage IV kidney disease. I will research this somewhat to confirm. We will try to avoid nephrotoxic agents. (6) Constipation Qualifiers: Constipation type: unspecified constipation type Qualified Code(s): K59.00 - Constipation, unspecified Is this a current diagnosis for this admission?: Yes Plan: 01/24/2019-start lactulose. May need a more aggressive regimen. - Time Time Spent with patient: 35 or more minutes Medications reviewed and adjusted accordingly: Yes Anticipated discharge: Home with Homehealth
[2019-01-24] MEDS: FLUTICASONE NASAL SPRAY 50 MCG/SPRY 120 SPRAY/16 GM NASL SCH ×2 (12:22→21:53)
[2019-01-24] MEDS: ACETAMINOPHEN 325 MG TABLET PO PRN (13:02)
[2019-01-24] MEDS: BUDESONIDE NEB 0.25 MG/2 ML AMPUL NEB SCH (15:59)
[2019-01-24] MEDS: DOCUSATE SODIUM 100 MG CAPSULE PO SCH ×2 (18:23→18:27)
[2019-01-24] MEDS: MAGNESIUM OXIDE 400 MG TABLET PO SCH (18:23)
[2019-01-24] MEDS: FERROUS SULFATE 325 MG TABLET PO SCH (18:23)
[2019-01-24] MEDS: MELATONIN 5 MG TABLET PO SCH (21:53)
[2019-01-24] MEDS: CEFTRIAXONE 1 GM/D5W RTU 1 GM/50 ML RTUPB IV SCH (21:53)
[2019-01-24] MEDS: ATORVASTATIN CALCIUM 10 MG TABLET PO SCH (21:54)
[2019-01-24] MEDS: METOPROLOL TARTRATE 25 MG TABLET PO SCH (21:54)
[2019-01-24] MEDS: BENZONATATE 100 MG CAPSULE PO SCH (21:54)
[2019-01-24] MEDS ORDERED: (PENDING PHARMACY ID) (Pravastatin Sodium [Pravachol] 40 MG) PO SCH (22:00)
[2019-01-24] MEDS ORDERED: APIXABAN 2.5 MG TABLET PO SCH (22:00)
[2019-01-24] MEDS: AZITHROMYCIN 500 MG in DEXTROSE 5%-WATER 250 ML IV SCH (22:20)
[2019-01-25] MEDS: BUDESONIDE NEB 0.25 MG/2 ML AMPUL NEB SCH ×3 (00:35→16:20)
[2019-01-25] MEDS: IPRATROPIUM BROMIDE 0.02% NEB 0.5 MG/2.5 ML AMPUL NEB SCH ×6 (00:35→20:42)
[2019-01-25] MEDS: LEVALBUTEROL HCL NEB 1.25 MG/3 ML AMPUL NEB SCH ×6 (00:35→20:42)
[2019-01-25] MEDS: DILTIAZEM HCL 60 MG TABLET PO SCH ×4 (00:57→17:11)
[2019-01-25] MEDS: HYDROCORTISONE SOD SUCCINATE INJ/PF 100 MG/2 ML SDV IV SCH ×2 (06:29→13:33)
[2019-01-25] MEDS: HYDROCODONE BIT/HOMATROPINE 5-1.5 MG TABLET PO PRN (06:29)
[2019-01-25] MEDS: BENZONATATE 100 MG CAPSULE PO SCH ×3 (06:29→21:55)
[2019-01-25 07:25] LABS: HEMATOCRIT 30.1 % (36.0-47.0); HEMOGLOBIN 10.6 g/dL (12.0-15.5); MEAN CORPUSCULAR HEMOGLOBIN 34.6 pg (27.0-33.4); MEAN CORPUSCULAR HGB CONC 35.2 g/dL (32.0-36.0); MEAN CORPUSCULAR VOLUME 98 fl (80-97); PLATELET COUNT 144 10^3/uL (150-450); RED BLOOD COUNT 3.07 10^6/uL (3.72-5.28); RED CELL DISTRIBUTION WIDTH 13.1 % (11.5-14.0)
[2019-01-25 07:46] LABS: ANION GAP 13 (5-19); BLOOD UREA NITROGEN 29 mg/dL (7-20); CALCIUM 9.5 mg/dL (8.4-10.2); CARBON DIOXIDE 22 mmol/L (22-30); CHLORIDE 108 mmol/L (98-107); GLUCOSE 227 mg/dL (75-110); POTASSIUM 4.1 mmol/L (3.6-5.0)
[2019-01-25 08:17] LABS: ABSOLUTE LYMPHOCYTES# (MANUAL) 0.3 10^3/uL (0.5-4.7); ABSOLUTE MONOCYTES # (MANUAL) 0.5 10^3/uL (0.1-1.4); BASOPHILS % (MANUAL) 0 % (0-2); EOSINOPHILS % (MANUAL) 0 % (0-6); LYMPHOCYTES % (MANUAL) 3 % (13-45); MONOCYTES % (MANUAL) 5 % (3-13); SEGMENTED NEUTROPHILS % (MAN) 92 % (42-78); TOTAL CELLS COUNTED 100
[2019-01-25 08:18] LABS: ANISOCYTOSIS SLIGHT
[2019-01-25 08:19] LABS: PLATELET COMMENT DECREASED
[2019-01-25] MEDS: FLUTICASONE NASAL SPRAY 50 MCG/SPRY 120 SPRAY/16 GM NASL SCH ×2 (09:38→22:04)
[2019-01-25] MEDS: FUROSEMIDE 20 MG TABLET PO SCH (09:38)
[2019-01-25] MEDS: DOCUSATE SODIUM 100 MG CAPSULE PO SCH ×2 (09:38→17:11)
[2019-01-25] MEDS: FOLIC ACID 1 MG TABLET PO SCH (09:38)
[2019-01-25] MEDS: MAGNESIUM OXIDE 400 MG TABLET PO SCH ×2 (09:38→17:11)
[2019-01-25] MEDS: FERROUS SULFATE 325 MG TABLET PO SCH ×2 (09:38→17:11)
[2019-01-25] MEDS: METOPROLOL TARTRATE 25 MG TABLET PO SCH (09:38)
--- NOTE | 2019-01-25 15:34 | PDOC PROGRESS REPORT ---
Subjective Progress Note for:: 01/25/19 Subjective:: The patient was doing well earlier but is currently coughing. Unfortunately she has urinary incontinence when she coughs. She is requesting her pure wick catheter back. Despite very aggressive nebulizer treatments, inhaled and intravenous steroids she still has a significant cough. Reason For Visit: ACUTE AND CHRONIC BROCHITIS COPD EXACERBATION Physical Exam Vital Signs: Temp Pulse Resp BP Pulse Ox 97.9 F 69 16 108/62 100 01/25/19 11:15 01/25/19 14:00 01/25/19 11:43 01/25/19 11:15 01/25/19 11:43 Intake & Output 01/24/19 01/25/19 01/26/19 06:59 06:59 06:59 Intake Total 2050 2250 240 Output Total 75 725 200 Balance 1974 1525 40 Weight 82.2 kg 84.2 kg General appearance: PRESENT: cooperative, mild distress, well-developed Head exam: PRESENT: atraumatic, normocephalic Ear exam: PRESENT: normal external ear exam. ABSENT: bleeding, drainage Mouth exam: PRESENT: moist, tongue midline Respiratory exam: PRESENT: tachypnea, other - Tachypnea due to intractable coughing. ABSENT: clear to auscultation aditi - Very congested breath sounds bilaterally, rales, rhonchi, wheezes Cardiovascular exam: PRESENT: RRR, +S1, +S2, other - Difficult to auscultate due to very congested breath sounds GI/Abdominal exam: PRESENT: normal bowel sounds, soft. ABSENT: distended, tenderness Rectal exam: PRESENT: deferred Extremities exam: ABSENT: joint swelling, pedal edema Musculoskeletal exam: PRESENT: ambulatory, normal inspection Neurological exam: PRESENT: alert, awake, oriented to person, oriented to place, oriented to time, oriented to situation, CN II-XII grossly intact Psychiatric exam: PRESENT: appropriate affect. ABSENT: agitated, anxious Focused psych exam: PRESENT: restlessness. ABSENT: delusional Results Laboratory Results: 01/25/19 07:07 01/25/19 07:07 01/24/19 01/25/19 01/25/19 16:21 07:07 07:07 WBC 10.0 D RBC 3.07 L Hgb 10.6 L Hct 30.1 L MCV 98 H MCH 34.6 H MCHC 35.2 RDW 13.1 Plt Count 144 L Seg Neutrophils % Not Reportable Sodium 142.5 Potassium 4.1 Chloride 108 H Carbon Dioxide 22 Anion Gap 13 BUN 29 H Creatinine 1.85 H Est GFR ( Amer) 32 L Glucose 227 H Lactic Acid 3.3 H Calcium 9.5 01/25/19 07:07 WBC RBC Hgb Hct MCV MCH MCHC RDW Plt Count Seg Neutrophils % Sodium Potassium Chloride Carbon Dioxide Anion Gap BUN Creatinine Est GFR ( Amer) Glucose Lactic Acid 2.3 H Calcium 01/24/19 00:10 Clean Catch Midstream Urine Culture - Final Mixed Urogenital [place] 01/23/19 01/23/19 17:19 17:19 Troponin I < 0.012 NT-Pro-B Natriuret Pep 1160 H Impressions: Chest X-Ray 01/23/19 17:05 IMPRESSION: NO ACUTE RADIOGRAPHIC FINDING IN THE CHEST. Chest CT 01/23/19 18:28 IMPRESSION: NO SIGNIFICANT FINDING ON NON-CONTRASTED CHEST CT. Lung Scan-VQ NM 01/24/19 00:00 IMPRESSION: 1. Heterogeneous radiotracer distribution on ventilation imaging due to bronchial clumping and/or obstructive small airway disease. There is no perfusion defect. Very low probability examination for pulmonary embolism by modified PIOPED criteria (PE absent). 2. Cardiomegaly. Assessment and Plan - Diagnosis (1) Shortness of breath Is this a current diagnosis for this admission?: Yes Plan: Most likely secondary to pneumonia however no infiltrate visualized, follow-up VQ scan, heparin ordered. 01/24/2019-breathing is improved however the patient still has expiratory wheezes. 01/25/2019-today the patient has very coarse breath sounds. She still requires oxygen supplementation. Dyspnea is related to her asthma. (2) Acute asthma exacerbation Qualifiers: Asthma severity: severe Asthma persistence: persistent Qualified Code(s): J45.51 - Severe persistent asthma with (acute) exacerbation Is this a current diagnosis for this admission?: Yes Plan: 01/24/2019-I did spend approximately 30 minutes on the phone with the patient's granddaughter. She had multiple questions. She reports that the patient's asthma can have severe exacerbations. I told her that the patient is certainly doing better and that we have increased the number of nebulizer treatments. The patient still has expiratory wheezes but with the change in her treatments this should improve. 01/25/2019-she reports intermittently feeling better with the every 4 hour nebs in the every 8 hour Pulmicort. I am also going to decrease her systemic steroids and change from the IV hydrocortisone to prednisone 40 mg twice daily and monitor for improvement of her asthma. We will taper the prednisone slowly. (3) Pneumonia Qualifiers: Pneumonia type: due to unspecified organism Lung location: unspecified part of lung Is this a current diagnosis for this admission?: No Plan: 01/24/2019-the patient does not have an obvious infiltrate on x-ray. She does not have an elevated white blood cell count. I will reassess tomorrow and if I am not convinced that there is pneumonia I will discontinue all antibiotics. 01/25/2019-the antibiotics were initially utilized to treat as suspected pneumonia. Since there is no pneumonia I have discontinued the antibiotics. (4) Atrial fibrillation with RVR Is this a current diagnosis for this admission?: Yes Plan: 01/25/2019-with the patient's heart rate now controlled I will change the diltiazem to 240 mg extended release each morning. I will change the metoprolol to 50 mg of the long-acting at bedtime. This in fact will double the diltiazem that she was on and decrease the metoprolol by 75%. Continue to monitor. Con tinue anticoagulation with apixaban. (5) Chronic kidney disease (CKD) stage G3b/A3, moderately decreased glomerular filtration rate (GFR) between 30-44 mL/min/1.73 square meter and albuminuria creatinine ratio greater than 300 mg/g Is this a current diagnosis for this admission?: Yes Plan: 01/24/2019-the patient has chronic kidney failure. The patient told her granddaughter that her kidneys were at 37%. In fact she was reporting a BUN of 37. I will recheck her renal function tomorrow. The patient may in fact have chronic stage IV kidney disease. I will research this somewhat to confirm. We will try to avoid nephrotoxic agents. 01/25/2019-her renal function continues to improve daily. Continue current regimen and monitor renal function. (6) Constipation Qualifiers: Constipation type: unspecified constipation type Qualified Code(s): K59.00 - Constipation, unspecified Is this a current diagnosis for this admission?: Yes Plan: 01/24/2019-start lactulose. May need a more aggressive regimen. 01/25/2019-we will continue current regimen. (7) Cough Is this a current diagnosis for this admission?: Yes Plan: 01/25/2019-despite very aggressive pulmonary regimen the patient still has a cough. This could be reflux related. I have added Protonix and we will try and keep the head of the bed elevated. (8) Lactic acidosis Is this a current diagnosis for this admission?: Yes Plan: 01/25/2019-continues to slowly improve. It is down to 2.3. Will recheck tomorrow. I expect it will normalize by tomorrow. (9) Urinary, incontinence, stress female Is this a current diagnosis for this admission?: Yes Plan: 01/25/2019-the patient has been having stress incontinence. She passes urine every time she coughs. She is coughing quite frequently during the day. We are trying to wean her from the pure wick catheter however she is constantly wet. We will continue the catheter for today and if her cough improves consider discontinuing tomorrow. - Time Time Spent with patient: 25-34 minutes Medications reviewed and adjusted accordingly: Yes Anticipated discharge: Home Within: within 48 hours
[2019-01-25] MEDS: PANTOPRAZOLE SODIUM 40 MG TABLET.DR PO SCH (17:11)
[2019-01-25] MEDS: APIXABAN 2.5 MG TABLET PO SCH (17:11)
[2019-01-25] MEDS ORDERED: DEXTROSE 40% GEL 15 GM TUBE PO PRN ×2 (21:27)
[2019-01-25] MEDS ORDERED: GLUCAGON,HUMAN RECOMB 1 MG INJ IM PRN (21:27)
[2019-01-25] MEDS ORDERED: DEXTROSE 50%-WATER 25 GM/50 ML DISP.SYRIN IV PRN ×2 (21:27)
[2019-01-25] MEDS ORDERED: BISACODYL 5 MG TABEC PO PRN (21:42)
[2019-01-25] MEDS ORDERED: BISACODYL 10 MG SUPP.RECT PR PRN (21:42)
[2019-01-25] MEDS: CEFTRIAXONE 1 GM/D5W RTU 1 GM/50 ML RTUPB IV SCH (21:54)
[2019-01-25] MEDS: AZITHROMYCIN 500 MG in DEXTROSE 5%-WATER 250 ML IV SCH (21:54)
[2019-01-25] MEDS: ATORVASTATIN CALCIUM 10 MG TABLET PO SCH (21:55)
[2019-01-25] MEDS: MELATONIN 5 MG TABLET PO SCH (21:55)
[2019-01-25] MEDS: INSULIN LISPRO 100 UNIT/ML 3 ML VIAL SUBCUT SCH (21:59)
[2019-01-25] MEDS: ACETAMINOPHEN 325 MG TABLET PO PRN (21:59)
[2019-01-26] MEDS: LEVALBUTEROL HCL NEB 1.25 MG/3 ML AMPUL NEB SCH ×5 (00:37→15:54)
[2019-01-26] MEDS: IPRATROPIUM BROMIDE 0.02% NEB 0.5 MG/2.5 ML AMPUL NEB SCH ×5 (00:37→15:54)
[2019-01-26] MEDS: BUDESONIDE NEB 0.25 MG/2 ML AMPUL NEB SCH ×3 (00:37→15:54)
[2019-01-26] MEDS: HYDROCODONE BIT/HOMATROPINE 5-1.5 MG TABLET PO PRN (01:15)
[2019-01-26] MEDS: PANTOPRAZOLE SODIUM 40 MG TABLET.DR PO SCH ×2 (05:55→16:36)
[2019-01-26] MEDS: BENZONATATE 100 MG CAPSULE PO SCH ×3 (05:55→22:16)
[2019-01-26 06:21] LABS: ANION GAP 6 (5-19); BLOOD UREA NITROGEN 30 mg/dL (7-20); CALCIUM 8.9 mg/dL (8.4-10.2); CARBON DIOXIDE 28 mmol/L (22-30); CHLORIDE 108 mmol/L (98-107); GLUCOSE 194 mg/dL (75-110); POTASSIUM 3.5 mmol/L (3.6-5.0)
[2019-01-26] MEDS: INSULIN LISPRO 100 UNIT/ML 3 ML VIAL SUBCUT SCH ×4 (08:23→22:17)
[2019-01-26] MEDS ORDERED: PREDNISONE 20 MG TABLET PO SCH (10:00)
--- NOTE | 2019-01-26 11:08 | PDOC DISCHARGE SUMMARY ---
Impression - Admit/DC Date/PCP Admission Date/Primary Care Provider: 01/23/19 21:36 INOCENTE BONILLA PA-C Discharge Date: 01/26/19 - Discharge Diagnosis (1) Acute asthma exacerbation Is this a current diagnosis for this admission?: Yes (2) Atrial fibrillation with RVR Is this a current diagnosis for this admission?: Yes (3) Lactic acidosis Is this a current diagnosis for this admission?: Yes (4) Urinary, incontinence, stress female Is this a current diagnosis for this admission?: Yes (5) Chronic kidney disease (CKD) stage G3b/A3, moderately decreased glomerular filtration rate (GFR) between 30-44 mL/min/1.73 square meter and albuminuria creatinine ratio greater than 300 mg/g Is this a current diagnosis for this admission?: Yes (6) Constipation Is this a current diagnosis for this admission?: Yes - Assessment Summary: Patient was admitted for shortness of breath and acute asthma exacerbation. Patient was started on treatment with nebulizers bronchodilators and steroids. Patient was also noted to have lactic acidosis likely secondary to exacerbation. Patient's exacerbation was somewhat difficult to treat given persistence of significant wheezing despite multiple treatments with bronchodilators and steroids, prompting further evaluation with chest CT scan which showed no evidence of pneumonia or infiltrates and VQ scan which showed very low probability of pulmonary embolism. Patient was placed on Protonix with suspicion that gastric acid reflux could be contributing to patient's asthma flareup. Patient's breathing status has improved significantly today and patient is able to ambulate without significant dyspnea. Patient is stable for discharge with recommendations to continue using her albuterol inhalers 3 times a day for the next 3 days after which she can only use it as needed for shortness of breath or wheezing. She has been placed on prednisone for 3 more days. Patient has also been placed on increased dose of Cardizem of 240 mg daily to achieve better control of her A. fib with RVR which is likely exacerbated also by asthma exacerbation. Patient has strict instructions to follow-up with your primary care physician for further care. - Additional Information Resuscitation Status: Do Not Resuscitate Discharge Activity: Activity As Tolerated Referrals: INOCENTE BONILLA PA-C [Primary Care Provider] - 01/31/19 3:30 pm Prescriptions: Diltiazem HCl [Cardizem Cd 240 mg Capsule.cr] 240 mg PO DAILY #30 capsule.cr Prednisone [Deltasone 20 mg Tablet] 20 mg PO Q12 3 Days tablet Albuterol Sulfate [Proair Respiclick] 90 mcg IH Q6HP PRN #1 inh PRN Reason: Pantoprazole Sodium [Protonix [address] Tablet] 40 mg PO ACBRKFST #30 tablet. Metoprolol Succinate [Toprol XL 100 mg Tablet] 100 mg PO DAILY #30 Home Medications: Apixaban [Eliquis 5 mg Tablet] 5 mg PO BID 01/24/19 Budesonide/Formoterol Fumarate [Symbicort HFA 160-4.5 mcg Inhaler 6 gm] 2 puff IH Q12 01/24/19 Docusate Sodium [Colace 100 mg Capsule] 100 mg PO BID 01/24/19 Ferrous Sulfate [Feosol 325 mg Tablet] 325 mg PO BID 01/24/19 Folic Acid [Folvite 1 mg Tablet] 1 mg PO DAILY 01/24/19 Furosemide [Lasix 40 mg Tablet] 40 mg PO DAILY 01/24/19 Magnesium Oxide [Mag-Ox 400 mg Tablet] 400 mg PO BID 01/24/19 Pravastatin Sodium [Pravachol] 40 mg PO QHS 01/24/19 Albuterol Sulfate [Proair Respiclick] 90 mcg IH Q6HP PRN #1 inh 01/26/19 Diltiazem HCl [Cardizem Cd 240 mg Capsule.cr] 240 mg PO DAILY #30 capsule.cr 01/26/19 Metoprolol Succinate [Toprol XL 100 mg Tablet] 100 mg PO DAILY #30 01/26/19 Pantoprazole Sodium [Protonix [address] Tablet] 40 mg PO ACBRKFST #30 tablet. 01/26/19 Prednisone [Deltasone 20 mg Tablet] 20 mg PO Q12 3 Days tablet 01/26/19 History of Present Illiness History of Present Illness: SOTO YOUNG is a 78 year old female with a past medical history of COPD, atrial fibrillation congestive heart failure, ureteral stenting and tobacco. She presents with 3 days of shortness of breath, nonproductive cough and diffuse body aches. In the emergency room she is found to be sepsis with unclear source, lactic acidosis, tachypneic and hypotensive. She started on IV fluids, empiric antibiotics and referred to the hospitalist for admission. She only complains of upper respiratory symptoms, denies recent antibiotic use, dysuria, abdominal pain or diarrhea. She admits medication noncompliance and does not follow-up with doctors regularly. Physical Exam Vital Signs: Temp Pulse Resp BP Pulse Ox 97.8 F 95 17 104/47 L 100 01/26/19 07:24 01/26/19 07:24 01/26/19 07:24 01/26/19 07:24 01/26/19 07:24 Intake & Output 01/25/19 01/26/19 01/27/19 06:59 06:59 06:59 Intake Total 2250 1120 Output Total 725 625 Balance 1525 495 Weight 84.2 kg 84.3 kg Neck exam: ABSENT: JVD Respiratory exam: PRESENT: wheezes - Mild expiratory wheezing. ABSENT: accessory muscle use, retraction Cardiovascular exam: PRESENT: irregular rhythm, +S1, +S2 GI/Abdominal exam: PRESENT: normal bowel sounds Musculoskeletal exam: PRESENT: ambulatory Neurological exam: PRESENT: alert, awake Results Laboratory Results: WBC 10.0 10^3/uL (4.0-10.5) D 01/25/19 07:07 RBC 3.07 10^6/uL (3.72-5.28) L 01/25/19 07:07 Hgb 10.6 g/dL (12.0-15.5) L 01/25/19 07:07 Hct 30.1 % (36.0-47.0) L 01/25/19 07:07 MCV 98 fl (80-97) H 01/25/19 07:07 MCH 34.6 pg (27.0-33.4) H 01/25/19 07:07 MCHC 35.2 g/dL (32.0-36.0) 01/25/19 07:07 RDW 13.1 % (11.5-14.0) 01/25/19 07:07 Plt Count 144 10^3/uL (150-450) L 01/25/19 07:07 Lymph % (Auto) Not Reportable 01/25/19 07:07 [place] % (Auto) Not Reportable 01/25/19 07:07 Eos % (Auto) Not Reportable 01/25/19 07:07 Baso % (Auto) Not Reportable 01/25/19 07:07 Absolute Neuts (auto) Not Reportable 01/25/19 07:07 Absolute Lymphs (auto) Not Reportable 01/25/19 07:07 Absolute Monos (auto) Not Reportable 01/25/19 07:07 Absolute Eos (auto) Not Reportable 01/25/19 07:07 Absolute Basos (auto) Not Reportable 01/25/19 07:07 Total Counted 100 01/25/19 07:07 Seg Neutrophils % Not Reportable 01/25/19 07:07 Seg Neuts % (Manual) 92 % (42-78) H 01/25/19 07:07 Lymphocytes % (Manual) 3 % (13-45) L 01/25/19 07:07 Monocytes % (Manual) 5 % (3-13) 01/25/19 07:07 Eosinophils % (Manual) 0 % (0-6) 01/25/19 07:07 Basophils % (Manual) 0 % (0-2) 01/25/19 07:07 Abs Neuts (Manual) 9.2 10^3/uL (1.7-8.2) H 01/25/19 07:07 Abs Lymphs (Manual) 0.3 10^3/uL (0.5-4.7) L 01/25/19 07:07 Abs Monocytes (Manual) 0.5 10^3/uL (0.1-1.4) 01/25/19 07:07 Absolute Eos (Manual) 0.0 10^3/uL (0.0-0.6) 01/25/19 07:07 Abs Basophils (Manual) 0.0 10^3/uL (0.0-0.2) 01/25/19 07:07 Platelet Comment DECREASED 01/25/19 07:07 Anisocytosis SLIGHT 01/25/19 07:07 Macrocytosis SLIGHT 01/25/19 07:07 PT 18.5 SEC (11.4-15.4) H 01/24/19 05:24 INR 1.52 01/24/19 05:24 APTT 34.2 SEC (23.5-35.8) 01/24/19 05:24 VBG pH 7.50 (7.30-7.42) H 01/23/19 17:19 VBG pCO2 33.0 mmHg (35-63) L 01/23/19 17:19 VBG HCO3 24.9 mmol/L (20-32) 01/23/19 17:19 VBG Base Excess 2.1 mmol/L 01/23/19 17:19 Sodium 142.0 mmol/L (137-145) 01/26/19 05:54 Potassium 3.5 mmol/L (3.6-5.0) L 01/26/19 05:54 Chloride 108 mmol/L (98-107) H 01/26/19 05:54 Carbon Dioxide 28 mmol/L (22-30) 01/26/19 05:54 Anion Gap 6 (5-19) 01/26/19 05:54 BUN 30 mg/dL (7-20) H 01/26/19 05:54 Creatinine 1.85 mg/dL (0.52-1.25) H 01/26/19 05:54 Est GFR ( Amer) 32 (>60) L 01/26/19 05:54 Est GFR (MDRD) Non-Af 26 (>60) L 01/26/19 05:54 Glucose 194 mg/dL (75-110) H 01/26/19 05:54 POC Glucose 266 mg/dL (70-110) H 01/26/19 08:20 Lactic Acid 1.2 mmol/L (0.7-2.1) 01/26/19 05:54 Lactic Acid (Sepsis) 4.1 mmol/L (0.7-2.1) H 01/24/19 03:52 Calcium 8.9 mg/dL (8.4-10.2) 01/26/19 05:54 Total Bilirubin 0.7 mg/dL (0.2-1.3) 01/23/19 17:19 Direct Bilirubin 0.2 mg/dL (0.0-0.4) 01/23/19 17:19 Neonat Total Bilirubin Not Reportable 01/23/19 17:19 Neonat Direct Bilirubin Not Reportable 01/23/19 17:19 Neonat Indirect Bili Not Reportable 01/23/19 17:19 AST 28 U/L (14-36) 01/23/19 17:19 ALT 18 U/L (<35) 01/23/19 17:19 Alkaline Phosphatase 65 U/L (38-126) 01/23/19 17:19 Troponin I < 0.012 ng/mL 01/23/19 17:19 NT-Pro-B Natriuret Pep 1160 pg/mL (<450) H 01/23/19 17:19 Total Protein 7.1 g/dL (6.3-8.2) 01/23/19 17:19 Albumin 4.5 g/dL (3.5-5.0) 01/23/19 17:19 Random Cortisol 39.60 ug/dL (None Established) 01/24/19 05:24 Urine Color YELLOW 01/24/19 00:10 Urine Appearance SLIGHTLY-CLOUDY 01/24/19 00:10 Urine pH 5.0 (5.0-9.0) 01/24/19 00:10 Ur Specific [place] 1.012 01/24/19 00:10 Urine Protein NEGATIVE mg/dL (NEGATIVE) 01/24/19 00:10 Urine Glucose (UA) 50 mg/dL (NEGATIVE) H 01/24/19 00:10 Urine Ketones NEGATIVE mg/dL (NEGATIVE) 01/24/19 00:10 Urine Blood MODERATE (NEGATIVE) H 01/24/19 00:10 Urine Nitrite NEGATIVE (NEGATIVE) 01/24/19 00:10 Urine Bilirubin NEGATIVE (NEGATIVE) 01/24/19 00:10 Urine Urobilinogen NEGATIVE mg/dL (<2.0) 01/24/19 00:10 Ur Leukocyte Esterase SMALL (NEGATIVE) H 01/24/19 00:10 Urine WBC (Auto) 0 /HPF 01/24/19 00:10 Urine RBC (Auto) 1 /HPF 01/24/19 00:10 Urine Bacteria (Auto) TRACE /HPF 01/24/19 00:10 Urine Ascorbic Acid NEGATIVE (NEGATIVE) 01/24/19 00:10 Influenza A (Rapid) NEGATIVE (NEGATIVE) 01/24/19 10:00 Influenza B (Rapid) NEGATIVE (NEGATIVE) 01/24/19 10:00 01/23/19 01/23/19 17:19 17:19 Troponin I < 0.012 NT-Pro-B Natriuret Pep 1160 H Impressions: Chest X-Ray 01/23/19 17:05 IMPRESSION: NO ACUTE RADIOGRAPHIC FINDING IN THE CHEST. Chest CT 01/23/19 18:28 IMPRESSION: NO SIGNIFICANT FINDING ON NON-CONTRASTED CHEST CT. Lung Scan-VQ NM 01/24/19 00:00 IMPRESSION: 1. Heterogeneous radiotracer distribution on ventilation imaging due to bronchial clumping and/or obstructive small airway disease. There is no perfusion defect. Very low probability examination for pulmonary embolism by modified PIOPED criteria (PE absent). 2. Cardiomegaly. Plan Time Spent: Less than 30 Minutes Stroke Is this a Stroke Patient?: No Acute Heart Failure - Is this a Heart Failure Patient?: No
[2019-01-26] MEDS: DOCUSATE SODIUM 100 MG CAPSULE PO SCH ×2 (11:20→18:50)
[2019-01-26] MEDS: MAGNESIUM OXIDE 400 MG TABLET PO SCH ×2 (11:20→18:50)
[2019-01-26] MEDS: FOLIC ACID 1 MG TABLET PO SCH (11:21)
[2019-01-26] MEDS: DILTIAZEM HCL 240 MG CAPSULE.CR PO SCH (11:21)
[2019-01-26] MEDS: FERROUS SULFATE 325 MG TABLET PO SCH ×2 (11:22→18:50)
[2019-01-26] MEDS: FUROSEMIDE 20 MG TABLET PO SCH (11:23)
--- NOTE | 2019-01-26 11:26 | PDOC PROGRESS REPORT ---
Subjective Progress Note for:: 01/26/19 Subjective:: I saw patient this morning, patient stated that she felt fine and was eager to go home. She had stated that her breathing was much better than before. At that time patient's denied any shortness of breath or chest tightness. I went ahead and prepared patient's discharge paperwork including discharge summary. However I was later notified by patient's nurse patient had another acute spell of dyspnea. On my return to patient's room to evaluate the patient, patient was noted to be very dyspneic. Surprisingly, patient states that she became very dyspneic after the breathing treatment was given. At this time patient does not feel ready to go home given this current episode of which I somewhat agree. Reason For Visit: ACUTE AND CHRONIC BROCHITIS COPD EXACERBATION Physical Exam Vital Signs: Temp Pulse Resp BP Pulse Ox 97.8 F 77 16 104/47 L 95 01/26/19 07:24 01/26/19 07:54 01/26/19 07:54 01/26/19 07:24 01/26/19 07:54 Intake & Output 01/25/19 01/26/19 01/27/19 06:59 06:59 06:59 Intake Total 2250 1120 Output Total 725 625 Balance 1525 495 Weight 84.2 kg 84.3 kg General appearance: PRESENT: no acute distress, cooperative Respiratory exam: PRESENT: symmetrical, tachypnea, wheezes. ABSENT: accessory muscle use, chest wall tenderness, retraction, unlabored Cardiovascular exam: PRESENT: irregular rhythm, +S1, +S2, tachycardia Musculoskeletal exam: PRESENT: ambulatory Neurological exam: PRESENT: alert, awake, oriented to person, oriented to place, oriented to time Results Laboratory Results: 01/25/19 07:07 01/26/19 05:54 01/26/19 01/26/19 05:54 05:54 Sodium 142.0 Potassium 3.5 L Chloride 108 H Carbon Dioxide 28 Anion Gap 6 BUN 30 H Creatinine 1.85 H Est GFR ( Amer) 32 L Glucose 194 H Lactic Acid 1.2 Calcium 8.9 01/24/19 00:10 Clean Catch Midstream Urine Culture - Final Mixed Urogenital [place] 01/23/19 01/23/19 17:19 17:19 Troponin I < 0.012 NT-Pro-B Natriuret Pep 1160 H Impressions: Chest X-Ray 01/23/19 17:05 IMPRESSION: NO ACUTE RADIOGRAPHIC FINDING IN THE CHEST. Chest CT 01/23/19 18:28 IMPRESSION: NO SIGNIFICANT FINDING ON NON-CONTRASTED CHEST CT. Lung Scan-VQ NM 01/24/19 00:00 IMPRESSION: 1. Heterogeneous radiotracer distribution on ventilation imaging due to bronchial clumping and/or obstructive small airway disease. There is no perfusion defect. Very low probability examination for pulmonary embolism by modified PIOPED criteria (PE absent). 2. Cardiomegaly. Assessment and Plan - Diagnosis (1) Acute asthma exacerbation Qualifiers: Asthma severity: severe Asthma persistence: persistent Qualified Code(s): J45.51 - Severe persistent asthma with (acute) exacerbation Is this a current diagnosis for this admission?: Yes Plan: We will place on Solu-Medrol and continue frequent nebs. LABA/ICS (2) Atrial fibrillation with RVR Is this a current diagnosis for this admission?: Yes Plan: Continue Cardizem 240 mg, metoprolol and Eliquis. (3) Lactic acidosis Is this a current diagnosis for this admission?: Yes Plan: Resolved (4) Urinary, incontinence, stress female Is this a current diagnosis for this admission?: Yes Plan: 01/25/2019-the patient has been having stress incontinence. She passes urine every time she coughs. She is coughing quite frequently during the day. We are trying to wean her from the pure wick catheter however she is constantly wet. We will continue the catheter for today and if her cough improves consider discontinuing tomorrow. (5) Chronic kidney disease (CKD) stage G3b/A3, moderately decreased glomerular filtration rate (GFR) between 30-44 mL/min/1.73 square meter and albuminuria creatinine ratio greater than 300 mg/g Is this a current diagnosis for this admission?: Yes Plan: Creatinine within baseline. Avoid nephrotoxic agents (6) Constipation Qualifiers: Constipation type: unspecified constipation type Qualified Code(s): K59.00 - Constipation, unspecified Is this a current diagnosis for this admission?: Yes Plan: 01/24/2019-start lactulose. May need a more aggressive regimen. 01/25/2019-we will continue current regimen. - Plan Summary Summary: Patient was admitted for shortness of breath and acute asthma exacerbation. Patient was started on treatment with nebulizers bronchodilators and steroids. Patient was also noted to have lactic acidosis likely secondary to exacerbation. Patient's exacerbation was somewhat difficult to treat given persistence of significant wheezing despite multiple treatments with bronchodilators and steroids, prompting further evaluation with chest CT scan which showed no evidence of pneumonia or infiltrates and VQ scan which showed very low probability of pulmonary embolism. Patient was placed on Protonix with suspicion that gastric acid reflux could be contributing to patient's asthma flareup. Patient's breathing status has improved significantly today and patient is able to ambulate without significant dyspnea. Patient is stable for discharge with recommendations to continue using her albuterol inhalers 3 times a day for the next 3 days after which she can only use it as needed for shortness of breath or wheezing. She has been placed on prednisone for 3 more days. Patient has also been placed on increased dose of Cardizem of 240 mg daily to achieve better control of her A. fib with RVR which is likely exacerbated also by asthma exacerbation. Patient has strict instructions to follow-up with your primary care physician for further care. - Time Time Spent with patient: 15-24 minutes
[2019-01-26] MEDS: FLUTICASONE NASAL SPRAY 50 MCG/SPRY 120 SPRAY/16 GM NASL SCH ×2 (11:30→22:18)
[2019-01-26] MEDS: APIXABAN 2.5 MG TABLET PO SCH ×2 (11:30→18:50)
[2019-01-26] MEDS ORDERED: METOPROLOL TARTRATE PF/INJ 5 MG/5 ML SDV IV ONE (13:58)
[2019-01-26] MEDS ORDERED: LEVALBUTEROL HCL NEB 0.63 MG/3 ML AMPUL NEB PRN (18:01)
[2019-01-26 19:36] LABS: INFLUENZA A AB (SERUM) CF 1:32 (Neg:<1:8)
[2019-01-26] MEDS ORDERED: METOPROLOL SUCCINATE 50 MG TAB.SR.24H PO SCH (22:00)
[2019-01-26] MEDS: MELATONIN 5 MG TABLET PO SCH (22:16)
[2019-01-26] MEDS: ATORVASTATIN CALCIUM 10 MG TABLET PO SCH (22:17)
[2019-01-26] MEDS: METHYLPREDNISOLONE INJ 40 MG/1 ML SDV IV SCH (22:18)
[2019-01-26] MEDS: AZITHROMYCIN 500 MG in DEXTROSE 5%-WATER 250 ML IV SCH (22:20)
[2019-01-27] MEDS ORDERED: LEVALBUTEROL HCL NEB 0.63 MG/3 ML AMPUL NEB SCH
[2019-01-27] MEDS: BUDESONIDE NEB 0.25 MG/2 ML AMPUL NEB SCH ×3 (00:23→15:59)
[2019-01-27] MEDS: IPRATROPIUM BROMIDE 0.02% NEB 0.5 MG/2.5 ML AMPUL NEB SCH ×3 (00:23→15:59)
[2019-01-27] MEDS: PANTOPRAZOLE SODIUM 40 MG TABLET.DR PO SCH ×2 (05:48→16:16)
[2019-01-27] MEDS: BENZONATATE 100 MG CAPSULE PO SCH ×2 (05:48→16:15)
[2019-01-27] MEDS: INSULIN LISPRO 100 UNIT/ML 3 ML VIAL SUBCUT SCH ×3 (07:45→17:19)
[2019-01-27] MEDS: DOCUSATE SODIUM 100 MG CAPSULE PO SCH (10:40)
[2019-01-27] MEDS: FOLIC ACID 1 MG TABLET PO SCH (10:41)
[2019-01-27] MEDS: DILTIAZEM HCL 240 MG CAPSULE.CR PO SCH (10:41)
[2019-01-27] MEDS: APIXABAN 2.5 MG TABLET PO SCH ×2 (10:41→18:30)
[2019-01-27] MEDS: FUROSEMIDE 20 MG TABLET PO SCH (10:41)
[2019-01-27] MEDS: FLUTICASONE NASAL SPRAY 50 MCG/SPRY 120 SPRAY/16 GM NASL SCH (10:42)
[2019-01-27] MEDS: FERROUS SULFATE 325 MG TABLET PO SCH ×2 (10:42→18:30)
[2019-01-27] MEDS: MAGNESIUM OXIDE 400 MG TABLET PO SCH ×2 (10:42→18:30)
[2019-01-27] MEDS: METHYLPREDNISOLONE INJ 40 MG/1 ML SDV IV SCH (10:48)
--- NOTE | 2019-01-27 12:03 | EKG REPORT ---
SEVERITY:- ABNORMAL ECG - A FIB VENTRICULAR PREMATURE COMPLEX BORDERLINE LEFT AXIS DEVIATION REPOLARIZATION ABNORMALITY, PROB RATE RELATED : Confirmed by: Onel Cunningham 27-Jan-2019 12:02:49
--- NOTE | 2019-01-27 17:00 | Progress Note ---
Provider Note Provider Note: Patient seen today. Patient is doing well breathing comfortably. Heart rate is more controlled today. Patient was ambulated without any significant dyspnea or worsening of A. fib. Patient is stable for discharge today. Refer to discharge summary for rest of information.
[2019-01-27 17:51] VITALS: BP 110/64
== END 2019-01-27 18:46 | disposition home or self-care (01) | DRG 202 ==
LOC: ER 17:01 → EH 21:36 → 3N 01-24 01:27 → 3W 01-25 18:07
PROVIDERS: ADMIT Internal Medicine; ATTEND Internal Medicine
DX: J45.51 Severe persistent asthma with (acute) exacerbation (principal); E87.2 Acidosis; E78.00 Pure hypercholesterolemia, unspecified; I13.10 Hypertensive heart and chronic kidney disease without heart failure, with stage 1 through stage 4 chronic kidney disease, or unspecified chronic kidney disease; I48.91 Unspecified atrial fibrillation; I50.9 Heart failure, unspecified; I25.10 Atherosclerotic heart disease of native coronary artery without angina pectoris; N18.3 Chronic kidney disease, stage 3 (moderate); K59.00 Constipation, unspecified; N39.3 Stress incontinence (female) (male); Z96.653 Presence of artificial knee joint, bilateral; Z96.611 Presence of right artificial shoulder joint; Z79.4 Long term (current) use of insulin; Z79.51 Long term (current) use of inhaled steroids; Z79.899 Other long term (current) drug therapy
CPT/HCPCS: 36415; 71045; 71250; 78582; 80048; 80053; 81001; 82533; 82803; 82962; 83605; 83880; 84484; 85025; 85610; 85730; 86710; 87040; 87077; 87086; 87804; 93005; 93010; 94640; 94799; 96361; 96374; 96375; 99285; A9540; A9567; J0456; J0696; J1720; J1815; J2060; J2920; J2930; J3490; J7030; J7060; J7512; J7614; J7626; Q9969

== ENCOUNTER 2019-07-01 17:59 | Emergency (ER) | payer MEDICARE ==
[2019-07-01] MEDS ORDERED: KETOROLAC TROMETHAMINE INJ/PF 30 MG/1 ML SDV IV ONE (18:05)
[2019-07-01] MEDS ORDERED: ONDANSETRON HCL INJ/PF 4 MG/2 ML SDV IV ONE (18:05)
--- NOTE | 2019-07-01 18:05 | ER Document Report ---
ED GI/ - General Chief Complaint: Flank Pain Stated Complaint: LEFT FLANK PAIN Time Seen by Provider: 07/01/19 18:01 Primary Care Provider: INOCENTE BONILLA PA-C [Primary Care Provider] - Follow up as needed Mode of Arrival: Medic Information source: Patient Notes: Patient is a 79-year-old female presenting to the emergency department chief complaint of left flank pain. Patient reports she had mild discomfort yesterday and that the pain suddenly got worse at about 3:00 this morning. She states the pain radiates around into the left lower quadrant. She does report a history of kidney stones. She has not had any dysuria or hematuria. She denies any fevers, nausea, vomiting or diarrhea. TRAVEL OUTSIDE OF THE [place] IN LAST 30 DAYS: No - Related Data Allergies/Adverse Reactions: No Known Allergies Allergy (Verified 01/23/19 17:30) Past Medical History - General Information source: Patient - Social History Smoking Status: Never Smoker Frequency of alcohol use: None Drug Abuse: None Family History: Hypertension - Past Medical History Cardiac Medical History: Reports: Hx Atrial Fibrillation, Hx Congestive Heart Failure, Hx Coronary Artery Disease, Hx Hypercholesterolemia, Hx Hypertension Pulmonary Medical History: Reports: Hx Asthma, Hx Bronchitis, Hx COPD, Hx Respiratory Failure Renal/ Medical History: Denies: Hx Peritoneal Dialysis Psychiatric Medical History: Denies: Hx Depression Past Surgical History: Reports: Hx Abdominal Surgery - lap band, Hx Orthopedic Surgery - aditi knee replacement, right shoulder, repair of femur - Immunizations Hx Pneumococcal Vaccination: 11/29/18 Review of Systems - Review of Systems Constitutional: No symptoms reported EENT: No symptoms reported Cardiovascular: No symptoms reported Respiratory: No symptoms reported Gastrointestinal: No symptoms reported Genitourinary: Dysuria, Flank pain Female Genitourinary: No symptoms reported Musculoskeletal: No symptoms reported Skin: No symptoms reported Hematologic/Lymphatic: No symptoms reported Neurological/Psychological: No symptoms reported Physical Exam - Vital signs Vitals: Temp 98.5 F 07/01/19 18:09 - Notes Notes: PHYSICAL EXAMINATION: GENERAL: Well-appearing, well-nourished and in no acute distress. HEAD: Atraumatic, normocephalic. EYES: Pupils equal round and reactive to light, extraocular movements intact, conjunctiva are normal. ENT: Nares patent, oropharynx clear without exudates. Moist mucous membranes. NECK: Normal range of motion, supple without lymphadenopathy LUNGS: Breath sounds clear to auscultation bilaterally and equal. No wheezes rales or rhonchi. HEART: Regular rate and rhythm without murmurs ABDOMEN: Soft, nontender, nondistended abdomen. No guarding, no rebound. No masses appreciated. Female : Left CVA tenderness. Musculoskeletal: Normal range of motion, no pitting or edema. No cyanosis. NEUROLOGICAL: Cranial nerves grossly intact. Normal speech, normal gait. Normal sensory, motor exams PSYCH: Normal mood, normal affect. SKIN: Warm, Dry, normal turgor, no rashes or lesions noted. Course - Re-evaluation Re-evalutation: Patient appears well, nontoxic, vital signs within normal limits. Patient has not had fevers. Suspect kidney stone or urinary tract infection. Labs and radiology pending. Patient reports she feels much improved, her work-up is below. She does have nitrite positive urine. No kidney stone on CT. She will be discharged home on antibiotics and close follow-up with her primary. CT results were discussed with patient. A copy was given to her for her primary care provider's review. Laboratory 07/01/19 07/01/19 07/01/19 18:06 18:06 19:23 WBC 7.8 RBC 3.87 Hgb 13.2 Hct 37.5 MCV 97 MCH 34.1 H MCHC 35.2 RDW 13.4 Plt Count 179 Lymph % (Auto) 10.1 L [place] % (Auto) 8.5 Eos % (Auto) 2.2 Baso % (Auto) 0.4 Absolute Neuts (auto) 6.1 Absolute Lymphs (auto) 0.8 Absolute Monos (auto) 0.7 Absolute Eos (auto) 0.2 Absolute Basos (auto) 0.0 Seg Neutrophils % 78.8 H Sodium 139.5 Potassium 4.1 Chloride 101 Carbon Dioxide 33 H Anion Gap 6 BUN 35 H Creatinine 2.06 H Est GFR ( Amer) 28 L Est GFR (MDRD) Non-Af 23 L Glucose 139 H Calcium 9.5 Total Bilirubin 0.5 Direct Bilirubin 0.0 Neonat Total Bilirubin Not Reportable Neonat Direct Bilirubin Not Reportable Neonat Indirect Bili Not Reportable AST 24 ALT 15 Alkaline Phosphatase 54 Total Protein 7.0 Albumin 4.4 Lipase 207.4 Urine Color YELLOW Urine Appearance CLOUDY Urine pH 5.0 Ur Specific [place] 1.017 Urine Protein NEGATIVE Urine Glucose (UA) NEGATIVE Urine Ketones NEGATIVE Urine Blood SMALL H Urine Nitrite POSITIVE H Urine Bilirubin NEGATIVE Urine Urobilinogen NEGATIVE Ur Leukocyte Esterase LARGE H Urine WBC (Auto) 158 Urine RBC (Auto) 6 U Hyaline Cast (Auto) 5 Urine Bacteria (Auto) 3+ Squamous Epi Cells Auto 15 U Non-Squamous Epis Auto 2 Urine Mucus (Auto) RARE Urine Ascorbic Acid NEGATIVE Abdomen/Pelvis CT 07/01/19 18:04 IMPRESSION: 1. No acute abnormality to explain the patient's symptoms. 2. Indeterminate 1.3 cm exophytic right renal cortical lesion has increased in size since previous examination on 06/22/2018. Further evaluation with contrast- enhanced MRI or CT is recommended for complete characterization. 3. Extensive colonic diverticulosis without evidence of diverticulitis. - Vital Signs Vital signs: Temp Pulse Resp BP Pulse Ox 98.5 F 07/01/19 18:09 - Laboratory Result Diagrams: 07/01/19 18:06 07/01/19 18:06 Laboratory results interpreted by me: 07/01/19 07/01/19 07/01/19 18:06 18:06 19:23 MCH 34.1 H Lymph % (Auto) 10.1 L Seg Neutrophils % 78.8 H Carbon Dioxide 33 H BUN 35 H Creatinine 2.06 H Est GFR ( Amer) 28 L Est GFR (MDRD) Non-Af 23 L Glucose 139 H Urine Blood SMALL H Urine Nitrite POSITIVE H Ur Leukocyte Esterase LARGE H Discharge - Discharge Clinical Impression: Flank pain UTI (urinary tract infection) Qualifiers: Urinary tract infection type: site unspecified Hematuria presence: without he maturia Qualified Code(s): N39.0 - Urinary tract infection, site not specified Condition: Stable Disposition: HOME, SELF-CARE Additional Instructions: PYELONEPHRITIS: Your evaluation shows evidence of pyelonephritis. This is an infection in the kidney. Typical symptoms are fever, pain in the flank, pain on urination, and frequent urination. Many cases of pyelonephritis can be treated at home. Hospital care may be necessary for patients who are very ill, or elderly or . Pyelonephritis is treated with antibiotics. Be sure to take all the medication as prescribed. Drink plenty of liquids (about three quarts per day). You may take acetaminophen for fever. You should feel significantly improved within two days. You should have a recheck of your urine in about one week to insure that the infection is gone. Return for a re-examination if your symptoms worsen in any way -- such as high fever, shaking chills, severe weakness or dizziness, severe pain, or inability to pass your urine. ANTIBIOTIC THERAPY: You have been given an antibiotic prescription. It's important that you take all the medication, unless instructed otherwise by your physician. Failure to complete the entire course can result in relapse of your condition. Common side effects of antibiotics include nausea, intestinal cramping, or diarrhea. Women may develop vaginal yeast infections, and babies can get yeast (thrush) in the mouth following the use of antibiotics. Contact your physician if you develop significant side effects from this medication. Allergy to this antibiotic can result in hives, wheezing, faintness, or itching. If symptoms of allergy occur, stop the medication and call the doctor. ROCEPHIN: You have been given an injection of an antibiotic called Rocephin (ceftriaxone). Sometimes the injection must be combined with antibiotic pills. For some infections, such as an uncomplicated ear infection, Rocephin provides all the antibiotic that's needed. The antibiotic will be in your body for about two days. For serious infect ions, we usually repeat doses of Rocephin daily. Side effects are very unusual following a shot. Women may develop vaginal yeast infections, and babies can get yeast (thrush) in the mouth following the use of antibiotics. Contact your physician if you have symptoms with this medication. Allergy to this antibiotic can result in hives, wheezing, faintness, or itching. If symptoms of allergy occur, call the doctor at once. TRIMETHOPRIM-SULFA: You have been given a prescription for trimethoprim-sulfa (TMS, Septra, Bactrim). This is a combination antibiotic of the sulfa class, often used for urinary tract infections, middle ear infections, bronchitis, shigella intestinal infection, and Pneumocystis pneumonia. TMS is usually well-tolerated. Occasional side effects include nausea and decreased appetite. Septra is not recommended for infants less than two months of age. Do not take this medication if you have experienced severe side effects or allergy to sulfa medicine. You should stop this medicine at once and contact your physician if you develop any rash, joint pain, shortness of breath, bruising, or jaundice (yellow color in the skin), or if you develop any other new or unusual symptoms. ORAL NARCOTIC MEDICATION: You have been given a prescription for pain control. This medication is a narcotic. It's best taken with food, as nausea can result if taken on an empty stomach. Don't operate machinery or drive within six hours of taking this medication. Do not combine this medicine with alcohol, or with any medication which can cause sedation (such as cold tablets or sleeping pills) unless you get permission from the physician. Narcotics tend to cause constipation. If possible, drink plenty of fluids and eat a diet high in fiber and fruits. Please be aware that prescription narcotics also have the potential for abuse. People become addicted to these medications because of the general sense of wellbeing that they induce. This feeling along with a significant reduction in tension, anxiety, and aggression provides a stimulating seductive quality to these drugs. Once your pain is under control, we encourage you to discard your unused narcotics. FOLLOW-UP CARE: If you have been referred to a physician for follow-up care, call the physicians office for an appointment as you were instructed or within the next two days. If you experience worsening or a significant change in your symptoms, notify the physician immediately or return to the Emergency Department at any time for re-evaluation. Prescriptions: Sulfamethoxazole/Trimethoprim [Bactrim Ds Tablet] 1 tab PO BID #28 tablet Hydrocodone/Acetaminophen [[place] 5-325 mg Tablet] 1 tab PO Q6H #12 tablet Referrals: INOCENTE BONILLA PA-C [Primary Care Provider] - Follow up as needed
[2019-07-01 18:26] LABS: ABSOLUTE EOSINOPHILS # (AUTO) 0.2 10^3/uL (0.0-0.6); ABSOLUTE LYMPHOCYTES (AUTO) 0.8 10^3/uL (0.5-4.7); ABSOLUTE MONOCYTES (AUTO) 0.7 10^3/uL (0.1-1.4); ABSOLUTE NEUT (AUTO) 6.1 10^3/uL (1.7-8.2); BASOPHILS % (AUTO) 0.4 % (0-2); EOSINOPHILS % (AUTO) 2.2 % (0-6); HEMATOCRIT 37.5 % (36.0-47.0); HEMOGLOBIN 13.2 g/dL (12.0-15.5); LYMPHOCYTES % (AUTO) 10.1 % (13-45); MEAN CORPUSCULAR HEMOGLOBIN 34.1 pg (27.0-33.4); MEAN CORPUSCULAR HGB CONC 35.2 g/dL (32.0-36.0); MEAN CORPUSCULAR VOLUME 97 fl (80-97); MONOCYTES % (AUTO) 8.5 % (3-13); PLATELET COUNT 179 10^3/uL (150-450); RED BLOOD COUNT 3.87 10^6/uL (3.72-5.28); RED CELL DISTRIBUTION WIDTH 13.4 % (11.5-14.0); SEGMENTED NEUTROPHILS % (AUTO) 78.8 % (42-78); TOTAL CELLS COUNTED % (AUTO) 100 %; WHITE BLOOD COUNT 7.8 10^3/uL (4.0-10.5)
[2019-07-01 18:41] LABS: ALBUMIN 4.4 g/dL (3.5-5.0); ALKALINE PHOSPHATASE 54 U/L (38-126); ANION GAP 6 (5-19); ASPARTATE AMINO TRANSFERASE 24 U/L (14-36); BILIRUBIN,TOTAL 0.5 mg/dL (0.2-1.3); BLOOD UREA NITROGEN 35 mg/dL (7-20); CALCIUM 9.5 mg/dL (8.4-10.2); CARBON DIOXIDE 33 mmol/L (22-30); CHLORIDE 101 mmol/L (98-107); GLUCOSE 139 mg/dL (75-110); POTASSIUM 4.1 mmol/L (3.6-5.0)
[2019-07-01 19:45] LABS: APPEARANCE,URINE CLOUDY; BILIRUBIN,URINE NEGATIVE (NEGATIVE); COLOR,URINE YELLOW; GLUCOSE, URINE NEGATIVE (NEGATIVE); KETONES,URINE NEGATIVE (NEGATIVE); LEUKOCYTE ESTERASE,URINE LARGE (NEGATIVE); NITRITE,URINE POSITIVE (NEGATIVE); PROTEIN,URINE NEGATIVE (NEGATIVE); URINE SPECIFIC GRAVITY 1.017; UROBILINOGEN,URINE NEGATIVE mg/dL (<2.0)
--- NOTE | 2019-07-01 19:45 | RADIOLOGY REPORT (SQ) ---
EXAM DESCRIPTION: CT ABD/PELVIS NO ORAL OR IV IMAGES COMPLETED DATE/TIME: 07/01/2019 6:19 pm REASON FOR STUDY: L flank pain COMPARISON: 06/22/2018 TECHNIQUE: CT scan of the abdomen and pelvis performed without intravenous or oral contrast. Images reviewed with lung, soft tissue, and bone windows. Reconstructed coronal and sagittal MPR images revi ewed. All images stored on PACS. All CT scanners at this facility use dose modulation, iterative reconstruction, and/or weight based d osing when appropriate to reduce radiation dose to as low as reasonably achievable (ALARA). [facility]: Dose Right [facility]: CareDose [facility]: Dose Right [facility]: Teradose 4D [facility]: Smart Mirror42 RADIATION DOSE: CT Rad equipment meets quality standard of care and radiation dose reduction techniq ues were employed. CTDIvol: 11.6 mGy. DLP: 586 mGy-cm.mGy. LIMITATIONS: None. FINDINGS: LOWER CHEST: No significant findings. No nodules or infiltrates. NON-CONTRASTED LIVER, SPLEEN, ADRENALS: Evaluation limited by lack of IV contrast. No identified sign ificant masses. PANCREAS: No masses. No peripancreatic inflammatory changes. GALLBLADDER: No identified stones by CT criteria. No inflammatory changes to suggest cholecystitis. RIGHT KIDNEY AND URETER: There is an exophytic heterogeneous appearing mass at the posterior midpole right kidney measuring 1.3 cm, slightly increased in size from previous examination at which time it measured 9 mm. This measures intermediate density with heterogeneous appearance, and is indeterminat e. No significant calcifications. No hydronephrosis or hydroureter. LEFT KIDNEY AND URETER: No suspicious masses. Assessment limited by lack of IV contrast. No signifi cant calcifications. No hydronephrosis or hydroureter. AORTA AND RETROPERITONEUM: No aneurysm. No retroperitoneal masses or adenopathy. BOWEL AND PERITONEAL CAVITY: There is colonic diverticulosis without evidence of diverticulitis. Gas tric band in appropriate position at the gastroesophageal junction. Intact tubing in reservoir in th e anterior abdomen. No bowel obstruction. No focal mass. APPENDIX: Not visualized. PELVIS, BLADDER, AND ABDOMINAL WALL:Post hysterectomy. No adnexal mass. Calcified pelvic phlebolith s. BONES: No significant findings. OTHER: No other significant finding. IMPRESSION: 1. No acute abnormality to explain the patient's symptoms. 2. Indeterminate 1.3 cm exophytic right renal cortical lesion has increased in size since previous ex amination on 06/22/2018. Further evaluation with contrast-enhanced MRI or CT is recommended for compl ete characterization. 3. Extensive colonic diverticulosis without evidence of diverticulitis. COMMENT: Quality ID # [id number]: Final reports with documentation of one or more dose reduction techniques (e.g., Automated exposure control, adjustment of the mA and/or kV according to patient size, use of iterative reconstruction technique) TECHNICAL DOCUMENTATION: JOB ID: [id number] 2010 [employer]- All Rights Reserved Reading location - IP/workstation name: [email or web address]
[2019-07-01] MEDS ORDERED: NORMAL SALINE 500 ML IV ONE (20:15)
[2019-07-01] MEDS ORDERED: CEFTRIAXONE INJ 1000 MG VIAL ONE (20:42)
[2019-07-01] MEDS ORDERED: CEFTRIAXONE 1 GM/D5W RTU 1 GM/50 ML RTUPB IV ONE (21:00)
== END 2019-07-01 22:14 | disposition home or self-care (01) ==
LOC: ER 17:59
DX: N39.0 Urinary tract infection, site not specified (principal); K57.30 Diverticulosis of large intestine without perforation or abscess without bleeding; I25.10 Atherosclerotic heart disease of native coronary artery without angina pectoris; I10 Essential (primary) hypertension; J44.9 Chronic obstructive pulmonary disease, unspecified; Z98.84 Bariatric surgery status
CPT/HCPCS: 99284; 96375; 96365; 36415; 87086; 83690; 85025; 87088; 80053; 81001; 87186; 74176; J1885; J2405; J7040; J0696